=== PATIENT | female | born 1935 | race Caucasian/White ===

== ENCOUNTER 2020-01-06 20:42 | Inpatient (IN) | payer MEDICARE, SELFPAY ==
--- NOTE | ~2020-01-06 | XR_ITS ---
EXAMINATION: XR hip RT 2V w AP pelvis DATE: 01/06/2020 22:03 INDICATION: Right hip pain. Fall. TECHNIQUE: An anteroposterior view of the pelvis and 2 views of right hip were obtained. COMPARISON: None. FINDINGS: There is a subcapital fracture of right femoral neck. The distal fracture fragment demonstr ates impaction, 30 degrees valgus attenuation, and 25 degrees posterior attenuation. There is mild os teoarthritis of the hips. There is severe lumbar spondylosis. IMPRESSION: 1. Subcapital fracture of right femoral neck. 2. Mild osteoarthritis of the hips. Reviewed, dictated and finalized at location A.
--- NOTE | ~2020-01-06 | XR_ITS ---
EXAMINATION: XR surgery orthopedic DATE: 01/07/2020 13:36 INDICATION: Right femoral neck fracture. TECHNIQUE: 2 intraoperative fluoroscopic views of right hip were obtained. I was not present. Fluoros copy exposure time was 47 seconds. COMPARISON: Right hip radiographs 01/06/2020 FINDINGS: There is a subcapital fracture of right femoral neck. The distal fracture fragment demonstr ates posterior and valgus angulation. Internal fixation is seen with 3 lag screws. IMPRESSION: 1. Subcapital fracture of right femoral neck status post internal fixation. Reviewed, dictated and finalized at location A.
[2020-01-06 20:44] VITALS: BP 155/77; PULSE 73; RESP 16; TEMP 36.6; O2SAT 94
--- NOTE | 2020-01-06 22:08 | ED.FALL ---
HPI - Fall General Chief Complaint: Fall Stated Complaint: fall Time Seen by Provider: 01/06/20 20:51 History of Present Illness HPI Narrative: She reports slipping and falling at home this evening. She landed on her right side. She is having moderate pain in the hip. Worse with movement. She denies striking her head. No other pain or injury. Related Data Home Medications Medication Instructions Recorded Confirmed aspirin 81 mg PO DAILY 01/06/20 01/07/20 atorvastatin 20 mg PO HS 01/07/20 01/07/20 Allergies Allergy/AdvReac Type Severity Reaction Status Date / Time No Known Allergies Allergy Verified 01/06/20 22:16 Review of Systems Review of Systems: All systems reviewed & are unremarkable except as noted in HPI and below Constitutional: Constitutional: Denies fever(s) and Denies weakness Respiratory: Respiratory: Denies dyspnea Gastrointestinal: Gastrointestinal: Denies abdominal pain, Denies nausea and Denies vomiting Genitourinary: Genitourinary: Denies dysuria Musculoskeletal: Musculoskeletal: Denies back pain Neurologic: Denies dizziness, Denies syncope and Denies weakness [facility] Past Medical History Medical History H/O: HTN (hypertension) Hyperlipidemia Surgical History Surgical History H/O: hysterectomy Family History Family History Mother Breast cancer Social History Social History Smoking status: Never smoker Second hand tobacco smoke exposure: No Alcohol intake: never Substance use: never Gender identity (if verbalized by the patient): Female Spiritual care concerns: No Exam Const: General: healthy appearing, no acute distress and alert Orientation/consciousness: patient oriented x3 HENMT: Head: normal to inspection Neck: Neck: normal visual inspection and no lymphadenopathy Chest: Chest palpation & inspection: no tenderness Resp: Effort & Inspection: normal respiratory effort Auscultation: clear to auscultation bilaterally, no rales, no rhonchi and no wheezes Cardio: Jugular venous distension: no JVD Rate: regular rate Rhythm: regular rhythm Heart sounds: no murmurs GI: Inspection: non-distended GI Palp: Yes Soft to palpation and No Tenderness to palpation present (GI) Skin: General skin exam: normal color Neuro: General: patient oriented x3 and moves all extremities Speech: normal speech Extrem: Other: Tenderness over the right hip. Pain limited ROM. No obvious deformity. Psych: Appearance: well kempt Affect: normal affect Course Vital Signs Vital signs: Vital Signs Temperature 36.6 C 01/06/20 20:44 Pulse Rate 73 01/06/20 20:44 Respiratory Rate 16 01/06/20 20:44 Blood Pressure 155/77 H 01/06/20 20:44 Pulse Oximetry 94 01/06/20 20:44 Temperature 37.0 C 01/07/20 00:05 Pulse Rate 72 01/07/20 01:19 Respiratory Rate 20 01/07/20 01:19 Blood Pressure 154/67 H 01/07/20 00:05 Pulse Oximetry 96 01/07/20 01:19 MDM - Fall MDM Narrative Medical decision making narrative: HIp fracture on x-ray. Case discussed with Dr. Smith. Will admit her to the hospitalist and keep her NPO. Case discussed with Dr. Rowland. He will admit and put in pre-op orders. Medical Records Attestation: I reviewed the patient's medical records. Lab Data Attestation: I reviewed the patient's lab results. Result diagrams: 01/06/20 22:46 01/06/20 22:46 Imaging Data Radiologist's impression: ITS Impressions Hip/Pelvis X-Ray 01/06/20 22:05 IMPRESSION: 1. Subcapital fracture of right femoral neck. 2. Mild osteoarthritis of the hips. Discharge Plan Discharge Clinical Impression: Subcapital fracture of right femur Patient Disposition: Still a Patient Condition: Stable
[2020-01-06] MEDS: MORPHINE SULFATE 2 MG/ML INJ IV PUSH (22:13)
[2020-01-06 22:43] VITALS: TEMP 36.6
[2020-01-06 22:48] VITALS: BP 160/80; PULSE 71; RESP 14; O2SAT 100
[2020-01-06 22:52] LABS: Basophils Percent Auto 0.2 % (0.2-1.2); Eosinophils Absolute Auto 0.1 K/mm3 (0-0.3); Eosinophils Percent Auto 0.5 % (0-4.4); Hematocrit 39.2 % (37.0-47.0); Hemoglobin 12.8 g/dL (12.0-15.0); Immature Granulocyte Absolute 0.07 K/mm3 (0.00-0.031); Immature Granulocyte Percent A 0.6 % (0-0.5); Lymphocytes Absolute Auto 0.61 K/mm3 (0.9-3.2); Lymphocytes Percent Auto 4.8 % (18.3-44.2); Mean Corpuscular HGB Conc 32.7 g/dl (32-36); Mean Corpuscular Hemoglobin 30.9 pg (26-34); Mean Corpuscular Volume 94.7 fl (80-100); Monocytes Absolute Auto 0.8 K/mm3 (0.1-0.6); Monocytes Percent Auto 6.4 % (2.6-8.5); Neutrophils Absolute Auto 11.1 K/mm3 (1.3-6.7); Neutrophils Percent Auto 87.5 % (45.5-73.1); Platelet Count Result 204 k/mm3 (150-375); Red Blood Count 4.14 M/mm3 (4.2-5.4); Red Cell Distribution Width 12.1 % (11.5-14.5); White Blood Count 12.7 K/mm3 (4.5-10.0)
--- NOTE | 2020-01-06 23:00 | PM.IMHP ---
H&P: HPI History of Present Illness Chief complaint: Femoral neck fracture Narrative: This is an 84 year old female with known HTN who lives alone at home and has had multiple falls presented to the hospital after suffering a fall at home today. The patient apparently was walking from her kitchen to the living room when she suddenly slipped and fell. She denies passing out or suffering any head trauma. The patient immediately had ambulatory dysfunction and could not get up. She pressed her life alert button to get assistance. Hip xray demonstrated subcapital fracture of right femoral neck. On further questions, she denies any headache, blurry vision, fever, chills, shortness of breath, chest pain, nausea, vomiting, abdominal pain, dysuria, hematuria, diarrhea or other symptoms. She denies any other signficant symptoms. ER provider has consulted Ortho who will evaluate the patient in the morning. Review of Systems Review of Systems: All systems reviewed & are unremarkable except as noted in HPI and below PMFSH Past Medical History Medical History Anxiety Depression H/O: HTN (hypertension) Hyperlipidemia Overactive bladder TIA (transient ischemic attack) Surgical History Surgical History H/O: hysterectomy Family History Family History Mother Breast cancer Social History Social History Smoking status: Never smoker Second hand tobacco smoke exposure: No Alcohol intake: never Substance use: never Gender identity (if verbalized by the patient): Female Spiritual care concerns: No Meds Home Medications and Allergies Home Medications Medication Instructions Recorded Confirmed Type famotidine 20 mg tablet 20 mg PO BID #180 tablet 05/10/19 01/07/20 Rx amlodipine 5 mg tablet 5 mg PO DAILY #90 tablet 08/22/19 01/07/20 Rx lisinopril 30 mg tablet 30 mg PO DAILY #90 tablet 08/22/19 01/07/20 Rx sertraline 50 mg tablet 50 mg PO DAILY #90 tablet 08/23/19 01/07/20 Rx aspirin 81 mg PO DAILY 01/06/20 01/07/20 History atorvastatin 20 mg PO HS 01/07/20 01/07/20 History Allergies Allergy/AdvReac Type Severity Reaction Status Date / Time No Known Allergies Allergy Verified 01/06/20 22:16 Vital Signs Vital Signs - 24 hr 01/06/20 20:38 01/06/20 20:44 Temperature 36.6 C Pulse Rate 71 73 Respiratory Rate 14 16 Blood Pressure 160/80 H 155/77 H Pulse Oximetry 100 94 Exam Const: General: alert and awake Nutritional Appearance: well nourished Orientation/consciousness: patient oriented x3 HENMT: Head: normal to inspection General nose exam: Normal external nose present Face and sinus: normal facial exam Mouth: Yes Normal oral and palatal mucosa present and Yes oropharynx normal Eyes: Pupils: Equal, round and reactive pupils present EOM: EOMs intact bilaterally Neck: Neck: supple and no JVD Thyroid: thyroid normal Lymphatic: lymphadenopathy not noted Resp: Effort & Inspection: normal respiratory effort Auscultation: clear to auscultation bilaterally Cardio: Rate: regular rate Rhythm: regular rhythm Heart sounds: no murmurs GI: Inspection: normal to inspection Auscultation: normal bowel sounds Skin: General skin exam: normal color and no rashes or lesions noted Neuro: General: patient oriented x3 Cranial nerves: Yes CN's II-XII intact bilaterally and Yes Equal, round and reactive pupils present Speech: normal speech Motor exam (neuro): 5/5 motor strength present throughout Sensory Exam: normal sensation Extrem: General: normal to inspection and edema bilateral Right lower extremity: hip/thigh (Obvious deformity++ Right LE tender w/ manipulation++ ) Psych: Mental Status: mental status grossly normal Affect: normal affect H&P: Results Labs Labs: Short CBC
[2020-01-06 23:03] LABS: INR 1.1; Prothrombin Time 13.5 Seconds (11.1-14.7)
[2020-01-06 23:04] LABS: Alanine Aminotransferase 24 U/L (4-35); Albumin Level 3.9 g/dL (3.5-5.1); Alkaline Phosphatase 117 U/L (38-126); Aspartate Amino Transferase 40 U/L (14-36); Bilirubin,Total 0.2 mg/dL (0.2-1.3); Blood Urea Nitrogen 19 mg/dL (7-17); Calcium 9.1 mg/dL (8.4-10.2); Carbon Dioxide 27 mmol/L (22-30); Chloride 105 mmol/L (98-107); Estimated CRCL calculation 42 ml/min; Estimated Glomerular Filt Rate > 60; Glucose 160 mg/dL (65-105); Sodium 138 mmol/L (137-145)
[2020-01-06 23:28] LABS: Add Urine Microscopic? YES; Appearance Urine Clear (Clear); Bilirubin Urine Negative (Negative); Blood Urine Negative (Negative); Color Urine Yellow (Yellow); Glucose Urine UA Negative (Negative); Ketones Urine Negative (Negative); Leukocyte Esterase Ur 1+ LEU/UL (Negative); Mucus Urine Rare /lpf; Nitrate Urine Negative (Negative); Protein Urine Negative (Negative); RBC Urine 0-2 /hpf (0-2); Specific Grav Ur 1.012 (1.001-1.035); Urobilinogen Urine Negative mg/dL (<2.0); WBC Urine 0-3 /hpf
[2020-01-06 23:52] VITALS: BP 162/73; PULSE 67; RESP 16; TEMP 36.7; O2SAT 97
[2020-01-07] VITALS (12 sets, daily range): BP systolic 134–167; BP diastolic 47–92; PULSE 72–98; RESP 12–20; TEMP 36.3–37.4; O2SAT 94–100; BMI 24.0
[2020-01-07] MEDS: SODIUM CHLORIDE 0.9% IV 1,000 ML 75 ML IV CONT (00:15)
[2020-01-07] MEDS: MORPHINE SULFATE 4 MG/ML INJ IV PUSH ×4 (00:16→06:42)
--- NOTE | 2020-01-07 00:29 | ADMGEN ---
This patient, Mariam Undrewood, was admitted to 3 [facility] Surg Room 316-01 at 0005. Patient/family oriented to hospital policies and general routines including ID bracelet, bed and alarms, visiting hours, pain management, procedures, bathroom and other care routines, personal items, smoking policy, room service/diet, and visiting hours. Valuables list has been completed. Information on how to activate the Rapid Response Team has been discussed. Patient/Family are encouraged to report perceived risks to care and to ask questions if they do not understand what they are told or what they should do.
[2020-01-07 06:36] LABS: Basophils Percent Auto 0.4 % (0.2-1.2); Eosinophils Percent Auto 0.6 % (0-4.4); Hematocrit 34.4 % (37.0-47.0); Immature Granulocyte Absolute 0.02 K/mm3 (0.00-0.031); Immature Granulocyte Percent A 0.3 % (0-0.5); Lymphocytes Absolute Auto 0.69 K/mm3 (0.9-3.2); Lymphocytes Percent Auto 10.1 % (18.3-44.2); Mean Corpuscular Hemoglobin 30.6 pg (26-34); Mean Corpuscular Volume 95.6 fl (80-100); Mean Platelet Volume 11.5 fl (7.4-10.4); Monocytes Absolute Auto 0.5 K/mm3 (0.1-0.6); Monocytes Percent Auto 6.9 % (2.6-8.5); Neutrophils Absolute Auto 5.6 K/mm3 (1.3-6.7); Neutrophils Percent Auto 81.7 % (45.5-73.1); Nucleated Red Blood Cells Perc 0.3 % (0.0-0.2); Platelet Count Result 179 k/mm3 (150-375); White Blood Count 6.8 K/mm3 (4.5-10.0)
[2020-01-07 07:11] LABS: Blood Urea Nitrogen 19 mg/dL (7-17); Calcium 8.5 mg/dL (8.4-10.2); Carbon Dioxide 26 mmol/L (22-30); Chloride 107 mmol/L (98-107); Estimated CRCL calculation 47 ml/min; Estimated Glomerular Filt Rate > 60; Glucose 127 mg/dL (65-105); Potassium 4.7 mmol/L (3.4-5.0); Sodium 138 mmol/L (137-145)
[2020-01-07] MEDS: amLODIPine BESYLATE 5 MG TABLET PO (08:54)
[2020-01-07] MEDS: FAMOTIDINE 20 MG TABLET PO ×3 (08:54→21:14)
[2020-01-07] MEDS: lisinopriL 10 MG TABLET 30 MG PO (08:54)
[2020-01-07] MEDS: SERTRALINE HCL 50 MG TABLET PO (08:54)
--- NOTE | 2020-01-07 11:00 | PM.IMPN ---
Progress Note: A&P Assessment and Plan (1) Subcapital fracture of right femur: Qualifiers: Encounter type: initial encounter Fracture type: closed Qualified Code(s): S72.011A - Unspecified intracapsular fracture of right femur, initial encounter for closed fracture Code(s): S72.011A - Unspecified intracapsular fracture of right femur, initial encounter for closed fracture Status: Acute Assessment and Plan: Patient presents after a fall at home; imaging shows subcapital right femoral neck fracture. Orthopedic surgery consulted - appreciate recommendations. Discussed case with Dr Smith this morning and his plan for R hip pinning today. She is a bit confused this morning, I am unsure of her baseline but I suspect this may be related to multiple morphine doses overnight. Stop morphine and continue with IV tylenol while NPO this morning. Further pain control, wound care, and DVT prophylaxis per Dr Smith's recommendations. (2) Leukocytosis: Qualifiers: Leukocytosis type: unspecified Qualified Code(s): D72.829 - Elevated white blood cell count, unspecified Code(s): D72.829 - Elevated white blood cell count, unspecified Status: Resolved Assessment and Plan: Resolved. Suspect related to acute fracture. (3) H/O: HTN (hypertension): Code(s): Z86.79 - Personal history of other diseases of the circulatory system Status: Chronic Assessment and Plan: Stable; can resume her home norvasc and lisinopril tomorrow. PRN hydralazine available in the interim. (4) Overactive bladder: Code(s): N32.81 - Overactive bladder Status: Chronic Assessment and Plan: History of overactive bladder symptoms followed by urology and saw Caridad Mckinney NP about 1 month ago. At that time she had a Kim catheter placed in the office but may have only been in for 1 weeks time according to the documentation. She currently has a Kim catheter due to immobility with R hip fracture. Will monitor. (5) Hyperlipidemia: Code(s): E78.5 - Hyperlipidemia, unspecified Status: Chronic Assessment and Plan: Can resume home statin therapy. Subjective Date/time seen: 01/07/20 11:00 Interval history: Ms. Underwood is an 84yo F admitted for right hip fracture. She is a bit confused this morning but is awake to answer some questions. She rates her right hip pain as a 10/10 at present. She denies chest pain, shortness of breath or cough. She describes some mild nausea without vomiting this morning. Review of Systems Review of Systems: Narrative: Twelve systems were reviewed with pertinent positives and negatives as per HPI. Exam Narrative: Exam Narrative: General: Elderly female resting supine in bed in no acute distress. HEENT: Normocephalic, EOMI, oral mucosa dry. Cardiovascular: Rate and rhythm are regular. Respiratory: Lungs clear to auscultation anteriorly and laterally. Non-labored breathing. Tolerating room air. Abdomen: Soft, non-tender, non-distended, bowel sounds present. Extremities: Peripheral pulses intact. R hip ecchymosis. Neuro: Sleepy but wakes to answer questions. Oriented to self but not place or time. No focal neurologic deficits appreciated. 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 Objective Data Vital Signs Vital Signs: Last Vital Signs Temp 98.1 F 01/07/20 06:57 Pulse 98 01/07/20 06:57 Resp 20 01/07/20 06:57 BP 136/75 01/07/20 06:57 Pulse Ox 95 01/07/20 06:57 Intake/Output Intake/Output: Intake & Output 01/04/20 01/05/20 01/06/20 01/07/20 23:59 23:59 23:59 23:59 Intake Total 0 Output Total 200 Balance -200 Meds/Results Medications: Active Medications Generic Name Dose Route Start Last Admin Trade Name Freq PRN Reason Stop Dose Admin Hydrocodone Bitart/Ac
--- NOTE | 2020-01-07 11:35 | PM.CNOR ---
Assessment and Plan Assessment and plan (1) Subcapital fracture of right femur: Qualifiers: Encounter type: initial encounter Fracture type: closed Qualified Code(s): S72.011A - Unspecified intracapsular fracture of right femur, initial encounter for closed fracture Code(s): S72.011A - Unspecified intracapsular fracture of right femur, initial encounter for closed fracture Status: Acute Assessment and Plan: 84-year-old female with subcapital or right femoral neck fracture. I have spoken to her daughter who is her [id number]. Plan on proceeding with surgical stabilization with pinning in situ today.Risks and potential complications were discussed in detail and questions answered. Thank you for the consultation. History of Present Illness HPI Consult date: 01/07/20 Consult reason: fracture Chief complaint: Femoral neck fracture Narrative: 84-year-old female who fell at home yesterday suffering a right subcapital femoral neck fracture. She was admitted for further evaluation and management. [facility] Past Medical History Medical History H/O: HTN (hypertension) Hyperlipidemia Overactive bladder Surgical History Surgical History H/O: hysterectomy Family History Family History Mother Breast cancer Social History Social History Smoking status: Never smoker Second hand tobacco smoke exposure: No Alcohol intake: never Substance use: never Gender identity (if verbalized by the patient): Female Spiritual care concerns: No Meds Home Medications and Allergies Home Medications Medication Instructions Recorded Confirmed Type famotidine 20 mg tablet 20 mg PO BID #180 tablet 05/10/19 01/07/20 Rx amlodipine 5 mg tablet 5 mg PO DAILY #90 tablet 08/22/19 01/07/20 Rx lisinopril 30 mg tablet 30 mg PO DAILY #90 tablet 08/22/19 01/07/20 Rx sertraline 50 mg tablet 50 mg PO DAILY #90 tablet 08/23/19 01/07/20 Rx aspirin 81 mg PO DAILY 01/06/20 01/07/20 History atorvastatin 20 mg PO HS 01/07/20 01/07/20 History Allergies Allergy/AdvReac Type Severity Reaction Status Date / Time No Known Allergies Allergy Verified 01/06/20 22:16 Vital Signs Vital Signs - 24 hr 01/06/20 20:44 01/06/20 22:43 01/06/20 22:48 Temperature 97.8 F 97.8 F Pulse Rate 73 71 Respiratory Rate 16 14 Blood Pressure 155/77 H 160/80 H Pulse Oximetry 94 100 01/06/20 23:52 01/07/20 00:05 01/07/20 01:19 Temperature 98.0 F 98.6 F Pulse Rate 67 72 72 Respiratory Rate 16 20 20 Blood Pressure 162/73 H 154/67 H Pulse Oximetry 97 96 96 01/07/20 06:57 Temperature 98.1 F Pulse Rate 98 Respiratory Rate 20 Blood Pressure 136/75 Pulse Oximetry 95 Exam Const: General: alert and awake; No acute distress Nutritional Appearance: average body habitus Orientation/consciousness: oriented to person (Was given morphine overnight) Limitations: other limitations HENMT: Head: normal to inspection Ears: hearing grossly normal bilaterally Face and sinus: normal facial exam Mouth: Yes moist mucous membranes Teeth and gingiva: fair dentition Eyes: General: appearance normal, both eyes and all related structures Neck: Neck: normal visual inspection and nontender Chest: Chest palpation & inspection: deferred Resp: Effort & Inspection: normal respiratory effort and able to speak in complete sentences Cardio: Rate: regular rate Rhythm: regular rhythm Peripheral pulses: Peripheral pulses 2+ throughout (Both lower extremities) GI: Inspection: non-distended Rectal Exam: deferred Back/Spine/Pelvis: Cervical Spine: No Cervical spine tenderness Thoracic/Lumbar Spine: thoracic and lumbar spine normal to inspection, No paraspinal muscle tenderness, No thoracic spinal tenderness and No lumbar
--- NOTE | 2020-01-07 12:06 | WPDANESEPPF ---
Anes - Initial Pre Proc Eval Procedure: Operation Date: 01/07/20 13:00 Proposed Procedures p Hip Pinning Cannulated Screws - Tacho Smith MD Date/Time: 01/07/20 12:06 Surgeon: LISSETTE Garibay Pre Op Diagnosis: Femoral neck fracture Patient Data Age: 84 Gender: F Height: 1.65 m Weight: 65.4 kg Last Vital Signs Temp 36.7 C 01/07/20 06:57 Pulse 98 01/07/20 06:57 Resp 20 01/07/20 06:57 BP 136/75 01/07/20 06:57 Pulse Ox 95 01/07/20 06:57 Allergies Allergy/AdvReac Type Severity Reaction Status Date / Time No Known Allergies Allergy Verified 01/06/20 22:16 Home Medications Medication Instructions Recorded Confirmed Type famotidine 20 mg tablet 20 mg PO BID #180 tablet 05/10/19 01/07/20 Rx amlodipine 5 mg tablet 5 mg PO DAILY #90 tablet 08/22/19 01/07/20 Rx lisinopril 30 mg tablet 30 mg PO DAILY #90 tablet 08/22/19 01/07/20 Rx sertraline 50 mg tablet 50 mg PO DAILY #90 tablet 08/23/19 01/07/20 Rx aspirin 81 mg PO DAILY 01/06/20 01/07/20 History atorvastatin 20 mg PO HS 01/07/20 01/07/20 History Laboratory Tests 01/06/20 01/06/20 01/06/20 22:46 22:46 22:46 WBC 12.7 K/mm3 H K/mm3 (4.5-10.0) RBC 4.14 M/mm3 L M/mm3 (4.2-5.4) Hgb 12.8 g/dL g/dL (12.0-15.0) Hct 39.2 % % (37.0-47.0) MCV 94.7 fl fl (80-100) MCH 30.9 pg pg (26-34) MCHC 32.7 g/dl g/dl (32-36) RDW 12.1 % % (11.5-14.5) Plt Count 204 k/mm3 k/mm3 (150-375) MPV 11.0 fl H fl (7.4-10.4) Immature Gran % (Auto) 0.6 % H % (0-0.5) Neut % (Auto) 87.5 % H % (45.5-73.1) Lymph % (Auto) 4.8 % L % (18.3-44.2) [place] % (Auto) 6.4 % % (2.6-8.5) Eos % (Auto) 0.5 % % (0-4.4) Baso % (Auto) 0.2 % % (0.2-1.2) Lymph # (Auto) 0.61 K/mm3 L K/mm3 (0.9-3.2) [place] # (Auto) 0.8 K/mm3 H K/mm3 (0.1-0.6) Eos # (Auto) 0.1 K/mm3 K/mm3 (0-0.3) Baso # (Auto) 0.0 K/mm3 K/mm3 (0.0-0.1) Abs Immat Gran (auto) 0.07 K/mm3 H K/mm3 (0.00-0.031) Absolute Neuts (auto) 11.1 K/mm3 H K/mm3 (1.3-6.7) Absolute Nucleated RBC 0.0 K/mm3 K/mm3 (0.0-0.012) Nucleated RBC % 0.0 % % (0.0-0.2) PT 13.5 Seconds Seconds (11.1-14.7) INR 1.1 Sodium 138 mmol/L mmol/L (137-145) Potassium 4.0 mmol/L mmol/L (3.4-5.0) Chloride 105 mmol/L mmol/L (98-107) Carbon Dioxide 27 mmol/L mmol/L (22-30) BUN 19 mg/dL H mg/dL (7-17) Creatinine 0.80 mg/dL mg/dL (0.7-1.0) Estim Creat Clear Calc 42 ml/min ml/min Estimated GFR > 60 (59 - ) Glucose 160 mg/dL H mg/dL (65-105) Calcium 9.1 mg/dL mg/dL (8.4-10.2) Total Bilirubin 0.2 mg/dL mg/dL (0.2-1.3) AST 40 U/L H U/L (14-36) ALT 24 U/L U/L (4-35) Alkaline Phosphatase 117 U/L U/L (38-126) Total Protein 7.0 g/dL g/dL (6.3-8.2) Albumin 3.9 g/dL g/dL (3.5-5.1) Urine Color Urine Appearance Urine pH Ur Specific [place] Urine Protein Urine Glucose (UA) Urine Ketones Ur Blood (Man) Urine Nitrate Urine Bilirubin Urine Urobilinogen Leukocyte Esterase Rfl Urine RBC Urine WBC Hyaline Casts Urine Mucus 01/06/20 01/07/20 01/07/20 23:06 05:55 05:55 WBC 6.8 K/mm3 K/mm3 (4.5-10.0) RBC 3.60 M/mm3 L M/mm3 (4.2-5.4) Hgb 11.0 g/dL L g/dL (12.0-15.0) Hct 34.4 % L % (37.0-47.0) MCV 95.6 fl fl (80-100) MCH 30.6 pg pg (26-34) MCHC 32.0 g/dl g/dl (32-36) RDW 12.0 % % (11.5-14.5) Plt Count 1
[2020-01-07] MEDS: ceFAZolin 2 GM/D5W 50 ML 2 GM/50 ML BAG IVPB ×2 (12:38→20:59)
--- NOTE | 2020-01-07 12:50 | PC.NURSE ---
To OR per bed on 12/21/2019 at 1200, IV saline locked. Kim in place. Family escorted to waiting room. Report given to AMINA Tatum.
[2020-01-07] MEDS: BUPIVACAINE/EPINEPHRINE 0.25% 50 ML VIAL INFILTRATE (13:10)
[2020-01-07] MEDS: LACTATED RINGERS 1,000 ML 30 ML IV CONT (13:54)
--- NOTE | 2020-01-07 14:15 | P.OP_ITS ---
Procedure Note - Detailed Date of procedure: 01/07/20 Pre-op diagnosis: Femoral neck fracture Impacted right subcapital femoral neck fracture Post-op diagnosis: same Procedure performed: Pinning in situ right femoral neck fracture Description of procedure: The patient was identified and proper site identified. She was taken to the operating room and after general anesthetic induction and intubation was transferred to the Newberg table position her supine in the usual manner for fixation of a right hip fracture. The fracture was assessed fluoroscopically and noted to be unchanged. The right hip and thigh was prepped and draped in usual sterile fashion. 10 mL of 0.25% Marcaine and epinephrine solution was injected into the subcutaneous tissue in the area of the incision. Longitudinal incision was made over the lateral aspect of the proximal femur. Subcutaneous tissue was bluntly dissected down to the ITB band which was divided in line with the incision. Through this three guide pins were placed under f luoroscopic control into the femoral neck and head over which 36.5 cannulated screws were placed and then the guidepins were removed. Hardware placement was assessed fluoroscopically on the AP and lateral views and noted to be satisfactory. The wound was irrigated with a copious amount of sterile antibiotic solution. The ITB band was reapproximated with 0 Vicryl suture. Once this was completed there was a very large subcutaneous hematoma from disruption in the fatty tissue. This was cleared of the clot debris and brought out proximal to the incision. The deeper layers of the subcu reapproximated with 2. Vicryl take taking care not to entrap the drain. The skin edges were reapproximated with three 0 Monocryl and jarad. Sterile dressing was applied. Drain was connected to the collection device. She tolerated the procedure well and was transferred back to a bed, awakened, extubated and taken recovery area in stable condition. There were no known intraoperative complications. She received perioperative antibiotics. Anesthesia: GLMA Surgeon: Tacho Smith MD Groundskeeping Maintenance Worker: Yogi Colunga Estimated blood loss (mL): 100 Drains: Yes (1/8 inch Hemovac) Packing: No Pathology: none sent Complications: No immediate complications Condition: stable Disposition: PACU
[2020-01-07] MEDS: SODIUM CHLORIDE 0.9% IV 1,000 ML 100 ML IV CONT (16:05)
--- NOTE | 2020-01-07 17:08 | PC.NURSE ---
Returned from OR per bed on 01/07/2020 at 1520. Report received from AMINA Franks.
[2020-01-07] MEDS: ACETAMINOPHEN 500 MG TABLET 1000 MG PO ×2 (18:16→23:38)
[2020-01-07] MEDS: DOCUSATE SODIUM 100 MG CAPSULE PO (18:16)
[2020-01-07] MEDS: ATORVASTATIN 20 MG TABLET PO (21:14)
[2020-01-08] VITALS (7 sets, daily range): BP systolic 123–153; BP diastolic 48–90; PULSE 66–82; RESP 16–18; TEMP 36.6–37.1; O2SAT 88–100
[2020-01-08] MEDS: SODIUM CHLORIDE 0.9% IV 1,000 ML 100 ML IV CONT ×2 (01:33→13:04)
[2020-01-08] MEDS: ceFAZolin 2 GM/D5W 50 ML 2 GM/50 ML BAG IVPB ×2 (04:31→13:24)
[2020-01-08] MEDS: ACETAMINOPHEN 500 MG TABLET 1000 MG PO ×3 (05:27→17:09)
[2020-01-08 06:36] LABS: Basophils Percent Auto 0.4 % (0.2-1.2); Eosinophils Absolute Auto 0.3 K/mm3 (0-0.3); Eosinophils Percent Auto 3.7 % (0-4.4); Hematocrit 30.2 % (37.0-47.0); Hemoglobin 9.8 g/dL (12.0-15.0); Immature Granulocyte Absolute 0.02 K/mm3 (0.00-0.031); Immature Granulocyte Percent A 0.3 % (0-0.5); Immature Platelet Fraction Pct 7.2 % (0.9-11.2); Lymphocytes Absolute Auto 0.45 K/mm3 (0.9-3.2); Lymphocytes Percent Auto 6.6 % (18.3-44.2); Mean Corpuscular HGB Conc 32.5 g/dl (32-36); Mean Corpuscular Hemoglobin 30.9 pg (26-34); Mean Corpuscular Volume 95.3 fl (80-100); Mean Platelet Volume 11.4 fl (7.4-10.4); Monocytes Absolute Auto 0.5 K/mm3 (0.1-0.6); Monocytes Percent Auto 7.9 % (2.6-8.5); Neutrophils Absolute Auto 5.5 K/mm3 (1.3-6.7); Neutrophils Percent Auto 81.1 % (45.5-73.1); Platelet Count Result 131 k/mm3 (150-375); Red Blood Count 3.17 M/mm3 (4.2-5.4); Red Cell Distribution Width 12.3 % (11.5-14.5); White Blood Count 6.8 K/mm3 (4.5-10.0)
[2020-01-08 06:45] LABS: Blood Urea Nitrogen 11 mg/dL (7-17); Carbon Dioxide 25 mmol/L (22-30); Chloride 107 mmol/L (98-107); Estimated CRCL calculation 54 ml/min; Estimated Glomerular Filt Rate > 60; Glucose 115 mg/dL (65-105); Magnesium 1.9 mg/dL (1.6-2.3); Potassium 3.4 mmol/L (3.4-5.0); Sodium 136 mmol/L (137-145)
[2020-01-08] MEDS: amLODIPine BESYLATE 5 MG TABLET PO (09:35)
[2020-01-08] MEDS: SERTRALINE HCL 50 MG TABLET PO (09:35)
[2020-01-08] MEDS: DOCUSATE SODIUM 100 MG CAPSULE PO ×2 (09:35→17:09)
[2020-01-08] MEDS: FAMOTIDINE 20 MG TABLET PO ×2 (09:35→20:17)
[2020-01-08] MEDS: lisinopriL 10 MG TABLET 30 MG PO (09:36)
--- NOTE | 2020-01-08 09:46 | PM.PNORT ---
Progress Note: A&P Assessment and Plan (1) Subcapital fracture of right femur: Qualifiers: Encounter type: initial encounter Fracture type: closed Qualified Code(s): S72.011A - Unspecified intracapsular fracture of right femur, initial encounter for closed fracture Code(s): S72.011A - Unspecified intracapsular fracture of right femur, initial encounter for closed fracture Status: Acute Assessment and Plan: 84-year-old female postop day one right hip pinning. No issues overnight. Therapy started. Will switch back to aspirin when she leaves the hospital. Currently on Lovenox. Following. Time Spent With Patient Time with patient: 15 - 25 minutes Subjective Subjective Date/Time Seen: 01/08/20 09:46 Post Op day: 1 Principal diagnosis: Status post right hip pinning Interval history: 84-year-old female postop day one right hip pinning. Uneventful overnight. Articulates very little discomfort in her right hip this morning. Review of Systems Constitutional: Constitutional: Denies chills and Denies fever(s) Eyes: Eyes: Reports no additional eye complaints ENT: Reports system reviewed and no additional complaints, except as documented Cardiovascular: Cardiovascular: Denies chest pain and Denies dyspnea on exertion Respiratory: Respiratory: Reports no additional respiratory complaints and Denies dyspnea on exertion Gastrointestinal: Gastrointestinal: Denies abdominal pain and Denies bloating Exam Const: General: cooperative, no acute distress and alert Nutritional Appearance: other Orientation/consciousness: patient oriented x3 Limitations: no limitations HENMT: Head: normal to inspection Ears: hearing grossly normal bilaterally Face and sinus: face symmetric Mouth: Yes moist mucous membranes Teeth and gingiva: fair dentition Eyes: Alignment and Position: alignment normal and position normal Sclera: sclerae normal Neck: Neck: normal visual inspection and nontender Chest: Chest palpation & inspection: normal inspection of the chest Resp: Effort & Inspection: normal respiratory effort and able to speak in complete sentences GI: Inspection: other (Nondistended) Skin: General skin exam: normal color Rashes: no rashes Neuro: General: patient oriented x3 Cognition (Neuro): normal cognition Speech: normal speech Gait exam (Neuro): Other gait observations present Motor exam (neuro): 5/5 motor strength present throughout Sensory Exam: normal sensation Extrem: General: normal to inspection and other Other: Exam of her right hip shows a dry dressing with very little swelling and no erythema around the incision. Neurovascular status grossly intact to right lower extremity. Calves nontender. Psych: Appearance: grossly normal Mental Status: mental status grossly normal Objective Data Vital Signs Vital Signs: Vital Signs - 24 hr 01/07/20 13:54 01/07/20 14:05 01/07/20 14:20 Temperature 99.4 F Pulse Rate 85 78 83 Respiratory Rate 13 12 12 Blood Pressure 167/92 H 166/67 H 147/74 H Pulse Oximetry 98 100 100 01/07/20 14:35 01/07/20 14:50 01/07/20 15:05 Temperature Pulse Rate 80 80 78 Respiratory Rate 12 12 12 Blood Pressure 150/85 H 154/66 H 136/71 Pulse Oximetry 94 94 96 01/07/20 15:25 01/07/20 15:45 01/07/20 22:00 Temperature 97.3 F L 97.9 F Pulse Rate 75 78 82 Respiratory Rate 16 20 Blood Pressure 134/47 L 154/64 H Pulse Oximetry 96 95 96 01/08/20 00:46 01/08/20 06:00 Temperature 98.7 F Pulse Rate 74 Respiratory Rate 18 Blood Pressure 130/90 Pulse Oximetry 95 97 Intake/Output Intake/Output: Intake & Output 01/05/20 01/06/20 01/07/20 01/08/20 23:59 23:59 23:59 23:59 Intake Total 350 / 350 1300 / 1300 Output Total 335 / 335 720 / 720 Balance 580 / 580 Meds/Results Medications: Active Medications Generic Name Dose Route Start Last Admin Trade Name Freq PRN Reason Stop Dose Admin Acetaminophen 1,000 mg 01/07/20
--- NOTE | 2020-01-08 09:59 | WPDANESPN ---
Anes - Prog Note Post-Op Date/Time: 01/08/20 09:59 Cardiovascular status: normal Respiratory status: normal Airway patency: baseline Mental status: baseline Post-Op hydration status: normal Vital Signs: Last Vital Signs Temp 37.1 C 01/08/20 06:00 Pulse 74 01/08/20 06:00 Resp 18 01/08/20 06:00 BP 130/90 01/08/20 06:00 Pulse Ox 97 01/08/20 06:00 I/O: Intake & Output 01/07/20 01/08/20 01/08/20 23:59 07:59 15:59 Intake Total 50 1300 Output Total 75 720 Balance -25 580 Laboratory Tests 01/08/20 05:55 01/08/20 05:55 01/08/20 01/08/20 05:55 05:55 WBC 6.8 RBC 3.17 L Hgb 9.8 L Hct 30.2 L MCV 95.3 MCH 30.9 MCHC 32.5 RDW 12.3 Plt Count 131 L MPV 11.4 H Immature Gran % (Auto) 0.3 Neut % (Auto) 81.1 H Lymph % (Auto) 6.6 L [place] % (Auto) 7.9 Eos % (Auto) 3.7 Baso % (Auto) 0.4 Lymph # (Auto) 0.45 L [place] # (Auto) 0.5 Eos # (Auto) 0.3 Baso # (Auto) 0.0 Abs Immat Gran (auto) 0.02 Absolute Neuts (auto) 5.5 Absolute Nucleated RBC 0.0 Nucleated RBC % 0.0 % Immature Plt Fraction 7.2 Sodium 136 L Potassium 3.4 Chloride 107 Carbon Dioxide 25 BUN 11 D Creatinine 0.60 L Estim Creat Clear Calc 54 Estimated GFR > 60 Glucose 115 H Calcium 8.0 L Magnesium 1.9 Post-procedural complaints: none Patient Feedback: Patient satisfied with anesthetic care.
--- NOTE | 2020-01-08 11:26 | PM.IMPN ---
Progress Note: A&P Assessment and Plan (1) Subcapital fracture of right femur: Qualifiers: Encounter type: initial encounter Fracture type: closed Qualified Code(s): S72.011A - Unspecified intracapsular fracture of right femur, initial encounter for closed fracture Code(s): S72.011A - Unspecified intracapsular fracture of right femur, initial encounter for closed fracture Status: Acute Assessment and Plan: Patient presents after a fall at home; imaging showed subcapital right femoral neck fracture now POD#1 s/p ORIF pinning by Dr Smith 01/06. Orthopedic surgery following - appreciate input. Pain control, wound care, and DVT prophylaxis per Dr Smith's recommendations. (2) H/O: HTN (hypertension): Code(s): Z86.79 - Personal history of other diseases of the circulatory system Status: Chronic Assessment and Plan: Stable on her home lisinopril and norvasc today, last pressure on the softer side may hold Lisinopril in AM. (3) Overactive bladder: Code(s): N32.81 - Overactive bladder Status: Chronic Assessment and Plan: History of overactive bladder symptoms followed by urology and saw Caridad Mckinney NP about 1 month ago. At that time she had a Kim catheter placed in the office but may have only been in for 1 weeks time according to the documentation. She currently has a Kim catheter due to immobility with R hip fracture. Will monitor. (4) Hyperlipidemia: Qualifiers: Hyperlipidemia type: unspecified Qualified Code(s): E78.5 - Hyperlipidemia, unspecified Code(s): E78.5 - Hyperlipidemia, unspecified Status: Chronic Assessment and Plan: Maintained on home statin therapy. Subjective Date/time seen: 01/08/20 1015 Interval history: Ms. Underwood is an 84yo F admitted for right hip fracture seen in follow up POD#1 s/p right hip pinning. She is sitting up in bedside chair finishing up breakfast. Doing well, describes hip discomfort with movement but pretty comfortable at rest. She denies chest pain or feeling short of breath. She denies nausea, vomiting, or abdominal pain. Review of Systems Review of Systems: Narrative: Twelve systems were reviewed with pertinent positives and negatives as per HPI. Exam Narrative: Exam Narrative: General: Elderly female resting comfortably in bedside chair in no acute distress. HEENT: Normocephalic, EOMI, oral mucosa dry. Cardiovascular: Rate and rhythm are regular. Respiratory: Lungs clear to auscultation. Non-labored breathing. Tolerating room air. Abdomen: Soft, non-tender, non-distended, bowel sounds present. Extremities: Peripheral pulses intact, RLE neurovascularly intact distal to surgical site. Neuro: No focal neurologic deficits appreciated. Speech is clear. Objective Data Vital Signs Vital Signs: Last Vital Signs Temp 97.9 F 01/08/20 10:00 Pulse 66 01/08/20 10:00 Resp 16 01/08/20 10:00 BP 123/48 L 01/08/20 10:00 Pulse Ox 100 01/08/20 10:00 Intake/Output Intake/Output: Intake & Output 01/05/20 01/06/20 01/07/20 01/08/20 23:59 23:59 23:59 23:59 Intake Total 350 1540 Output Total 335 720 Balance 15 820 Meds/Results Medications: Active Medications Generic Name Dose Route Start Last Admin Trade Name Argenis PRN Reason Stop Dose Admin Acetaminophen 1,000 mg 01/07/20 18:00 01/08/20 05:27 Tylenol Tablet PO 1,000 mg Q6HR OWEN Administration Al Hydrox/Mg Hydrox/Simethicone 30 ml 01/07/20 15:14 Mylanta PO Q6H PRN Indigestion Amlodipine Besylate 5 mg 01/07/20 09:00 01/08/20 09:35 Norvasc PO 5 mg DAILY OWEN Administration Atorvastatin Calcium 20 mg 01/07/20 21:00 01/07/20 21:14 Lipitor PO 20 mg HS OWEN Administration Docusate Sodium 100 mg 01/07/20 17:00 01/08/20 09:35 Colace Capsul
[2020-01-08] MEDS: ENOXAPARIN 40 MG/0.4 ML SYRINGE SUB-Q (13:23)
[2020-01-08] MEDS: ATORVASTATIN 20 MG TABLET PO (20:17)
[2020-01-09] MEDS: ACETAMINOPHEN 500 MG TABLET 1000 MG PO ×4 (00:04→17:35)
[2020-01-09] MEDS: SODIUM CHLORIDE 0.9% IV 1,000 ML 100 ML IV CONT ×3 (00:04→22:56)
[2020-01-09 06:00] VITALS: BP 182/57; PULSE 81; RESP 18; TEMP 37.1; O2SAT 93
[2020-01-09 06:24] LABS: Hematocrit 28.1 % (37.0-47.0); Hemoglobin 9.1 g/dL (12.0-15.0)
[2020-01-09 06:33] LABS: Blood Urea Nitrogen 9 mg/dL (7-17); Carbon Dioxide 24 mmol/L (22-30); Chloride 110 mmol/L (98-107); Estimated CRCL calculation 64 ml/min; Estimated Glomerular Filt Rate > 60; Glucose 97 mg/dL (65-105); Magnesium 1.9 mg/dL (1.6-2.3); Potassium 3.1 mmol/L (3.4-5.0); Sodium 138 mmol/L (137-145)
[2020-01-09] MEDS: POTASSIUM CHLORIDE 20 MEQ TABLET 40 MEQ PO (09:14)
[2020-01-09] MEDS: FAMOTIDINE 20 MG TABLET PO ×2 (09:15→20:25)
[2020-01-09] MEDS: ENOXAPARIN 40 MG/0.4 ML SYRINGE SUB-Q (09:15)
[2020-01-09] MEDS: amLODIPine BESYLATE 5 MG TABLET PO (09:15)
[2020-01-09] MEDS: SERTRALINE HCL 50 MG TABLET PO (09:15)
[2020-01-09] MEDS: DOCUSATE SODIUM 100 MG CAPSULE PO (09:15)
--- NOTE | 2020-01-09 10:49 | PM.PNORT ---
Progress Note: A&P Assessment and Plan (1) Subcapital fracture of right femur: Qualifiers: Encounter type: initial encounter Fracture type: closed Qualified Code(s): S72.011A - Unspecified intracapsular fracture of right femur, initial encounter for closed fracture Code(s): S72.011A - Unspecified intracapsular fracture of right femur, initial encounter for closed fracture Status: Acute Assessment and Plan: 84-year-old female postop day two right hip pinning doing well. She is much more alert now. Continue her physical therapy and OT. Awaiting placement. Following. Subjective Subjective Date/Time Seen: 01/09/20 10:49 Post Op day: 2 Principal diagnosis: Status post right hip pinning Interval history: 84-year-old female postop day two for right hip pinning. Feeling better each day. Review of Systems Constitutional: Constitutional: Denies chills and Denies fever(s) Eyes: Eyes: Reports no additional eye complaints ENT: Reports system reviewed and no additional complaints, except as documented Cardiovascular: Cardiovascular: Denies chest pain and Denies dyspnea on exertion Respiratory: Respiratory: Reports no additional respiratory complaints and Denies dyspnea on exertion Gastrointestinal: Gastrointestinal: Denies abdominal pain and Denies bloating Exam Const: General: cooperative, no acute distress and alert Nutritional Appearance: other Orientation/consciousness: patient oriented x3 Limitations: no limitations HENMT: Head: normal to inspection Ears: hearing grossly normal bilaterally Face and sinus: face symmetric Mouth: Yes moist mucous membranes Teeth and gingiva: fair dentition Eyes: Alignment and Position: alignment normal and position normal Sclera: sclerae normal Neck: Neck: normal visual inspection and nontender Chest: Chest palpation & inspection: normal inspection of the chest Resp: Effort & Inspection: normal respiratory effort and able to speak in complete sentences GI: Inspection: other ( Nontender and nondistended) Skin: General skin exam: normal color Rashes: no rashes Neuro: General: patient oriented x3 Cognition (Neuro): normal cognition Speech: normal speech Gait exam (Neuro): Other gait observations present Motor exam (neuro): 5/5 motor strength present throughout Sensory Exam: normal sensation Extrem: General: normal to inspection and other Other: Exam of there a hip demonstrates dry dressing. No erythema in very little swelling. Bruising is resolving. Neurovascular status right lower extremity is intact. Calves nontender. Psych: Appearance: grossly normal Mental Status: mental status grossly normal Objective Data Vital Signs Vital Signs: Vital Signs - 24 hr 01/08/20 14:00 01/08/20 21:03 01/08/20 22:00 Temperature 98.6 F 98.7 F Pulse Rate 82 69 77 Respiratory Rate 18 18 Blood Pressure 153/63 H 135/61 Pulse Oximetry 97 91 95 01/08/20 23:18 01/09/20 06:00 Temperature 98.7 F Pulse Rate 81 Respiratory Rate 18 Blood Pressure 182/57 H Pulse Oximetry 92 93 Intake/Output Intake/Output: Intake & Output 01/06/20 01/07/20 01/08/20 01/09/20 23:59 23:59 23:59 23:59 Intake Total 350 / 350 4280 / 4280 420 / 420 Output Total 335 / 335 1220 / 1220 300 / 300 Balance 3060 / 3060 120 / 120 Meds/Results Medications: Active Medications Generic Name Dose Route Start Last Admin Trade Name Freq PRN Reason Stop Dose Admin Acetaminophen 1,000 mg 01/07/20 18:00 01/09/20 05:22 Tylenol Tablet PO 1,000 mg Q6HR OWEN Administration Al Hydrox/Mg Hydrox/Simethicone 30 ml 01/07/20 15:14 Mylanta PO Q6H PRN Indigestion Amlodipine Besylate 5 mg 01/07/20 09:00 01/09/20 09:15 Norvasc PO 5 mg DAILY OWEN Administration Atorvastatin Calcium 20 mg 01/07/20 21:00 01/08/20 20:17 Lipitor PO 20 mg HS OWEN Administration Docusate Sodium 100 mg 01/07/20 17:00 01/09/20 09:15
--- NOTE | 2020-01-09 10:49 | PM.IMPN ---
Progress Note: A&P Assessment and Plan (1) Subcapital fracture of right femur: Qualifiers: Encounter type: initial encounter Fracture type: closed Qualified Code(s): S72.011A - Unspecified intracapsular fracture of right femur, initial encounter for closed fracture Code(s): S72.011A - Unspecified intracapsular fracture of right femur, initial encounter for closed fracture Status: Acute Assessment and Plan: Patient presents after a fall at home; imaging showed subcapital right femoral neck fracture now POD#2 s/p ORIF pinning by Dr Smith 01/06. Orthopedic surgery following - appreciate input. Pain control, wound care, and DVT prophylaxis per Dr Smith's recommendations. (2) H/O: HTN (hypertension): Code(s): Z86.79 - Personal history of other diseases of the circulatory system Status: Chronic Assessment and Plan: A bit elevated today, continue home Norvasc and resume home lisinopril. Monitor BPs and adjust treatment as needed. (3) Overactive bladder: Code(s): N32.81 - Overactive bladder Status: Chronic Assessment and Plan: History of overactive bladder symptoms followed by urology and saw Caridad Mckinney NP about 1 month ago. At that time she had a Kim catheter placed in the office but may have only been in for 1 weeks time according to the documentation. She has had no difficulty voiding thus far after Kim removal yesterday. Will monitor. (4) Hyperlipidemia: Qualifiers: Hyperlipidemia type: unspecified Qualified Code(s): E78.5 - Hyperlipidemia, unspecified Code(s): E78.5 - Hyperlipidemia, unspecified Status: Chronic Assessment and Plan: Maintained on home statin therapy. Subjective Date/time seen: 01/09/20 0945 Interval history: Ms. Underwood is an 84yo F admitted for right hip fracture seen in follow up POD#2 s/p right hip pinning. She is sitting up in bedside chair eating breakfast. She is doing well and describes her pain is a bit improved from yesterday. She denies chest pain or feeling short of breath. She denies nausea, vomiting, or abdominal pain. Review of Systems Review of Systems: Narrative: Twelve systems were reviewed with pertinent positives and negatives as per HPI. Except as documented, all other systems were reviewed and are negative. Exam Narrative: Exam Narrative: General: Elderly female resting comfortably in bedside chair in no acute distress. HEENT: Normocephalic, EOMI, oral mucosa dry. Cardiovascular: Rate and rhythm are regular. Respiratory: Lungs clear to auscultation. Non-labored breathing. Tolerating room air. Abdomen: Soft, non-tender, non-distended, bowel sounds present. Extremities: Peripheral pulses intact, RLE neurovascularly intact distal to surgical site; R hip mepilex is clean/dry/intact Neuro: No focal neurologic deficits appreciated. Speech is clear. Objective Data Vital Signs Vital Signs: Vital Signs - 24 hr 01/08/20 14:00 01/08/20 21:03 01/08/20 22:00 Temperature 98.6 F 98.7 F Pulse Rate 82 69 77 Respiratory Rate 18 18 Blood Pressure 153/63 H 135/61 Pulse Oximetry 97 91 95 01/08/20 23:18 01/09/20 06:00 Temperature 98.7 F Pulse Rate 81 Respiratory Rate 18 Blood Pressure 182/57 H Pulse Oximetry 92 93 Intake/Output Intake/Output: Intake & Output 01/06/20 01/07/20 01/08/20 01/09/20 23:59 23:59 23:59 23:59 Intake Total 350 4280 420 Output Total 335 1220 300 Balance 15 3060 120 Meds/Results Medications: Active Medications Generic Name Dose Route Start Last Admin Trade Name Freq PRN Reason Stop Dose Admin Acetaminophen 1,000 mg 01/07/20 18:00 01/09/20 05:22 Tylenol Tablet PO 1,000 mg Q6HR OWEN Administration Al Hydrox/Mg Hydrox/Simethicone 30 ml 01/07/20 15:14 Mylanta PO Q6H PRN Indigestion Amlod
[2020-01-09 14:00] VITALS: BP 150/56; PULSE 73; RESP 18; TEMP 36.9; O2SAT 93
[2020-01-09 14:26] LABS: SARS-CoV-2 RNA PCR Negative
[2020-01-09] MEDS: ATORVASTATIN 20 MG TABLET PO (20:25)
[2020-01-09 20:38] VITALS: O2SAT 92
[2020-01-09 21:55] VITALS: BP 153/77; PULSE 73; RESP 18; TEMP 36.9; O2SAT 97
[2020-01-10] MEDS: ACETAMINOPHEN 500 MG TABLET 1000 MG PO ×3 (00:18→13:03)
[2020-01-10 05:54] LABS: Hematocrit 25.7 % (37.0-47.0); Hemoglobin 8.3 g/dL (12.0-15.0)
[2020-01-10 06:00] VITALS: BP 154/80; PULSE 88; RESP 16; TEMP 36.7; O2SAT 95
[2020-01-10 06:12] LABS: Blood Urea Nitrogen 8 mg/dL (7-17); Calcium 7.7 mg/dL (8.4-10.2); Carbon Dioxide 23 mmol/L (22-30); Chloride 111 mmol/L (98-107); Estimated CRCL calculation 64 ml/min; Estimated Glomerular Filt Rate > 60; Glucose 93 mg/dL (65-105); Magnesium 1.8 mg/dL (1.6-2.3); Potassium 3.1 mmol/L (3.4-5.0); Sodium 137 mmol/L (137-145)
[2020-01-10] MEDS: lisinopriL 10 MG TABLET 30 MG PO (09:22)
[2020-01-10] MEDS: amLODIPine BESYLATE 5 MG TABLET PO (09:22)
[2020-01-10] MEDS: SERTRALINE HCL 50 MG TABLET PO (09:23)
[2020-01-10] MEDS: DOCUSATE SODIUM 100 MG CAPSULE PO (09:23)
[2020-01-10] MEDS: FAMOTIDINE 20 MG TABLET PO (09:23)
[2020-01-10] MEDS: POTASSIUM CHLORIDE 20 MEQ TABLET 40 MEQ PO (09:23)
[2020-01-10] MEDS: ENOXAPARIN 40 MG/0.4 ML SYRINGE SUB-Q (09:23)
--- NOTE | 2020-01-10 11:33 | PM.PNORT ---
Progress Note: A&P Assessment and Plan (1) Subcapital fracture of right femur: Qualifiers: Encounter type: initial encounter Fracture type: closed Qualified Code(s): S72.011A - Unspecified intracapsular fracture of right femur, initial encounter for closed fracture Code(s): S72.011A - Unspecified intracapsular fracture of right femur, initial encounter for closed fracture Status: Acute Assessment and Plan: No change in physical therapy activity orders. Agree with placement. Hip spica dressing until jarad are removed in about two weeks. Discharge instructions changed to reflect that. Following. Time Spent With Patient Time with patient: 15 - 25 minutes Subjective Subjective Date/Time Seen: 01/10/20 11:33 Post Op day: 3 Principal diagnosis: Status post right hip pinning Interval history: 84-year-old female postop day three right hip pending. No new complaints. Review of Systems Constitutional: Constitutional: Denies chills and Denies fever(s) Eyes: Eyes: Reports no additional eye complaints ENT: Reports system reviewed and no additional complaints, except as documented Cardiovascular: Cardiovascular: Denies chest pain and Denies dyspnea on exertion Respiratory: Respiratory: Reports no additional respiratory complaints and Denies dyspnea on exertion Gastrointestinal: Gastrointestinal: Denies abdominal pain and Denies bloating Exam Const: General: cooperative, no acute distress and alert Nutritional Appearance: other Orientation/consciousness: patient oriented x3 Limitations: no limitations HENMT: Head: normal to inspection Ears: hearing grossly normal bilaterally Face and sinus: face symmetric Mouth: Yes moist mucous membranes Teeth and gingiva: fair dentition Eyes: Alignment and Position: alignment normal and position normal Sclera: sclerae normal Neck: Neck: normal visual inspection and nontender Chest: Chest palpation & inspection: normal inspection of the chest Resp: Effort & Inspection: normal respiratory effort and able to speak in complete sentences GI: Inspection: other Skin: General skin exam: normal color Rashes: no rashes Neuro: General: patient oriented x3 Cognition (Neuro): normal cognition Speech: normal speech Gait exam (Neuro): Other gait observations present Motor exam (neuro): Other motor observations present ( No lower extremity deficits) Sensory Exam: normal sensation Extrem: General: normal to inspection and other Other: Exam of the right hip reveals modest bruising and moderate swelling today. Serous drainage coming from with the drain hole is in a little bit through the staple line. Psych: Appearance: grossly normal Mental Status: mental status grossly normal Objective Data Vital Signs Vital Signs: Vital Signs - 24 hr 01/09/20 14:00 01/09/20 20:38 01/09/20 21:55 Temperature 98.5 F 98.4 F Pulse Rate 73 73 Respiratory Rate 18 18 Blood Pressure 150/56 H 153/77 H Pulse Oximetry 93 92 97 01/10/20 06:00 Temperature 98.0 F Pulse Rate 88 Respiratory Rate 16 Blood Pressure 154/80 H Pulse Oximetry 95 Intake/Output Intake/Output: Intake & Output 01/07/20 01/08/20 01/09/20 01/10/20 23:59 23:59 23:59 23:59 Intake Total 350 / 350 4280 / 4280 3080 / 3080 220 / 220 Output Total 335 / 335 1220 / 1220 650 / 650 200 / 200 Balance 3060 / 3060 2430 / 2430 Meds/Results Medications: Active Medications Generic Name Dose Route Start Last Admin Trade Name Charlieq PRN Reason Stop Dose Admin Acetaminophen 1,000 mg 01/07/20 18:00 01/10/20 07:37 Tylenol Tablet PO 1,000 mg Q6HR OWEN Administration Al Hydrox/Mg Hydrox/Simethicone 30 ml 01/07/20 15:14 Mylanta PO Q6H PRN Indigestion Amlodipine Besylate 5 mg 01/07/20 09:00 01/10/20 09:22 Norvasc PO 5 mg DAILY OWEN Administration Atorvastatin Calcium 20 mg 01/07/20 21:00 01/09/20 20:25 Lipitor PO 20 mg HS [facility] Ad
[2020-01-10 13:57] LABS: Hematocrit 29.8 % (37.0-47.0); Hemoglobin 9.8 g/dL (12.0-15.0)
[2020-01-10 14:00] VITALS: BP 125/81; PULSE 80; RESP 16; TEMP 36.6; O2SAT 94
[2020-01-10 14:11] LABS: Magnesium 1.9 mg/dL (1.6-2.3); Potassium 3.4 mmol/L (3.4-5.0)
[2020-01-10 14:19] LABS: Transferrin 146 mg/dL (206-381)
[2020-01-10 14:25] LABS: Iron 29 ug/dL (37-170)
[2020-01-10 14:50] LABS: Percent Iron Saturation 14 % (20-50)
--- NOTE | 2020-01-10 15:15 | PM.DS ---
DS: Admitting Diagnosis Admitting Diagnosis Admitting Diagnosis: Unspecified intracapsular fracture of right femur, initial encounter for closed fracture DS: Discharge Diagnosis Discharge Diagnosis (1) Subcapital fracture of right femur: Qualifiers: Encounter type: initial encounter Fracture type: closed Qualified Code(s): S72.011A - Unspecified intracapsular fracture of right femur, initial encounter for closed fracture Code(s): S72.011A - Unspecified intracapsular fracture of right femur, initial encounter for closed fracture Status: Acute Assessment and Plan: Patient presents after a fall at home; imaging showed subcapital right femoral neck fracture now POD#3 s/p ORIF pinning by Dr Smith 01/06. Dr. Smith evaluated the patient today and feels she is stable for discharge to SNF at this time for continued therapy. He wrote orders for her to continue with Hip spica dressing until jarad are removed in about two weeks. The patient is otherwise stable to be discharged to SNF. (2) H/O: HTN (hypertension): Code(s): Z86.79 - Personal history of other diseases of the circulatory system Status: Chronic Assessment and Plan: A bit elevated today, 154/80. Continue home Norvasc and lisinopril. Have them continue monitoring at [facility]. (3) Overactive bladder: Code(s): N32.81 - Overactive bladder Status: Chronic Assessment and Plan: History of overactive bladder symptoms followed by urology and saw Caridad Mckinney NP about 1 month ago. At that time she had a Kim catheter placed in the office but may have only been in for 1 weeks time according to the documentation. She has had no difficulty voiding thus far after Kim removal yesterday. Patient still not having issues with urinating and denies any urinary symptoms at this time. Will have them monitor for any retention issues. (4) Hyperlipidemia: Qualifiers: Hyperlipidemia type: unspecified Qualified Code(s): E78.5 - Hyperlipidemia, unspecified Code(s): E78.5 - Hyperlipidemia, unspecified Status: Chronic Assessment and Plan: Maintained on home statin therapy. (5) Normocytic anemia: Code(s): D64.9 - Anemia, unspecified Status: Acute Assessment and Plan: On arrival the patient's H&H was normal. throughout her hospitalization and postop her H&H has dropped slightly. this morning it was the lowest at a hemoglobin of 8.3 and hematocrit at 25.7. Repeat H&H this afternoon which improved with a hemoglobin of 9.8 and hematocrit of 29.8%. iron panel appears to be anemia of chronic disease, but her % saturation was low at 14. will start her on iron supplementation twice a day and have her recheck CBC in 1 week. Vitamin B12 and folic acid were normal. she has no acute signs of bleeding at this time. Per orthopedic surgery the patient will continue on a full-dose aspirin twice a day for 6 weeks and then switch back to an 81 mg aspirin for DVT prophylaxis. (6) Hypokalemia: Code(s): E87.6 - Hypokalemia Status: Acute Assessment and Plan: Potassium was low at 3.1 this morning. it was replenished and repeat this afternoon was 3.4 which is within normal limits. Magnesium was normal at 1.9. DS: Summary Hospital Course Reason for hospitalization: patient is an 84-year-old woman with a history hypertension, who lives alone and has had multiple falls recently and she had a fall prior to arrival and sustained right hip pain and decided to come to emergency room for further evaluation. initial vitals showed temperature of 97.8?, blood pressure 155/77, heart rate 73, respiratory rate 16, oxygen saturation 94% on room air. Initial labs showed
[2020-01-10 15:18] LABS: Folic Acid > 20.0 ng/mL (2.76->20)
== END 2020-01-10 16:25 | DRG 482 ==
LOC: ANHED 22:38 → ANH3MEDSUR 01-07 00:50
PROVIDERS: Orthopaedic Surgery; Physician Assistant; Admitting Provider Family Medicine; Emergency Provider Emergency Medicine; PCP Family Medicine; Visit Provider Physician Assistant
PROC: 0QH634Z Insertion of Internal Fixation Device into Right Upper Femur, Percutaneous Approach (ICD-10-PCS; principal; 2020-01-07 13:00)
DX: S72.011A Unspecified intracapsular fracture of right femur, initial encounter for closed fracture (principal); W01.0XXA Fall on same level from slipping, tripping and stumbling without subsequent striking against object, initial encounter; D63.8 Anemia in other chronic diseases classified elsewhere; I10 Essential (primary) hypertension; N32.81 Overactive bladder; E78.5 Hyperlipidemia, unspecified; E87.6 Hypokalemia; F41.9 Anxiety disorder, unspecified; F32.9 Major depressive disorder, single episode, unspecified; D72.829 Elevated white blood cell count, unspecified; Z11.59 Encounter for screening for other viral diseases; Z79.82 Long term (current) use of aspirin; Z86.73 Personal history of transient ischemic attack (TIA), and cerebral infarction without residual deficits
CPT/HCPCS: 36415; 73502; 80048; 80053; 81001; 82607; 82728; 82746; 83540; 83550; 83735; 84132; 84466; 85014; 85018; 85025; 85055; 85610; 87635; 96374; 97110; 97162; 97165; 97530; 97535; 99285; A9270; C1713; C1769; C9803; J0690; J1650; J2270; J2704; J3010; J7030; J7120; U0003

== ENCOUNTER → 2021-01-21 14:49 | Outpatient (CLI) | payer MEDICARE, SELFPAY ==
--- NOTE | ~2021-01-21 | XR_ITS ---
XR lumbar spine 2-3V DATE: 01/21/2021 15:31 INDICATION: Low back pain TECHNIQUE: Standing AP and lateral views, coned lateral lumbosacral view COMPARISON: None FINDINGS: Diffuse osteopenia. There is severe degenerative disc disease at L2-3, L3-4, L4-5 and L5-S1. No fracture or bone destruction is evident. The included lower thoracic and lumbar pedicles are intac t. The sacroiliac joints appear normal. Several pins are noted in the proximal right femur. IMPRESSION: Diffuse osteopenia Severe degenerative disc disease at L2-3 through L5-S1 3 pins in the proximal right femur Reviewed, dictated and finalized at location B.
== END ==
PROVIDERS: PCP Family Medicine; Visit Provider Family Medicine
DX: G89.29 Other chronic pain (principal); M54.5 Low back pain; M85.88 Other specified disorders of bone density and structure, other site; M51.36 Other intervertebral disc degeneration, lumbar region
CPT/HCPCS: 72100

== ENCOUNTER 2021-04-08 15:58 | Outpatient (CLI) | payer MEDICARE, SELFPAY ==
--- NOTE | ~2021-04-08 | XR_ITS ---
EXAMINATION: XR abdomen/kub 1V DATE: 04/08/2021 16:30 INDICATION: Gross hematuria. Mid abdominal pain. Flank pain. TECHNIQUE: A supine view of the abdomen on 2 radiographs was obtained. COMPARISON: CT abdomen and pelvis 04/08/2021 FINDINGS: There are no dilated loops of bowel. There is no urolithiasis. There are pins in proximal r ight femur. IMPRESSION: 1. No urolithiasis. Reviewed, dictated and finalized at location A. IMPRESSION: 1. No urolithiasis.
--- NOTE | ~2021-04-08 | CT_ITS ---
EXAMINATION: CT abdomen pelvis wo/w con DATE: 04/08/2021 17:05 INDICATION: Gross hematuria TECHNIQUE: Computed tomography (CT) of the abdomen and pelvis was performed without intravenous contr ast. The dose-length product was 1034.50 mGy-cm. Automated exposure control and iterative reconstruct ion technique were employed. COMPARISON: None. FINDINGS: There is bibasilar atelectasis. No significant pleural or pericardial effusion. There is a right cardiophrenic angle mass measuring 3.5 cm with a few associated calcifications. There is hetero geneous enhancement of this mass. There is gallbladder distention with mild biliary dilatation. There is a redundant colon with moderate colonic fecal loading. Small amount of free fluid in the abdomen and pelvis. No renal/ureteral stones. No significant hydronephrosis. The spleen, pancreas, adrenal gl ands and kidneys are under otherwise unremarkable. There are surgical changes of the right femur prox imally. There is advanced lumbar spondylosis. No focal lytic or blastic lesions of the skeletal struc tures. IMPRESSION: 1. Abnormal right cardiophrenic angle mass with heterogeneous enhancement measuring up to 3.5 cm. Can not exclude malignancy. Consider metastatic disease and lymphoma. 2: Gallbladder distention with mild biliary dilatation, nonspecific. No obstructing stone or mass id entified. Reviewed, dictated and finalized at location B. IMPRESSION: 1. Abnormal right cardiophrenic angle mass with heterogeneous enhancement measu ring up to 3.5 cm. Cannot exclude malignancy. Consider metastatic disease and l ymphoma. 2: Gallbladder distention with mild biliary dilatation, nonspecific. No obstru cting stone or mass identified.
[2021-04-08 16:50] LABS: Estimated Glomerular Filt Rate 60
== END 2021-04-08 15:59 | disposition home or self-care (01) ==
LOC: ANHIMG 16:04
PROVIDERS: PCP Family Medicine; Visit Provider Nurse Practitioner Adult Health
DX: R31.9 Hematuria, unspecified (principal); R93.5 Abnormal findings on diagnostic imaging of other abdominal regions, including retroperitoneum
CPT/HCPCS: 74018; 74178; Q9967

== ENCOUNTER 2021-04-25 08:06 | Outpatient (CLI) | payer MEDICARE, SELFPAY ==
--- NOTE | ~2021-04-25 | PE_ITS ---
EXAMINATION: PET skull to mid thigh DATE: 04/25/2021 10:57 INDICATION: Abnormal findings of lung field. TECHNIQUE: Blood glucose level was 89 mg/dL. 8.868 mCi of 18-fluorodeoxyglucose (18-FDG) was administ ered i.v. Low dose computed tomography (CT) images were acquired from the base of the brain to the pr oximal thighs for attenuation correction and anatomic localization. Positron emission tomography (PET ) images were acquired in the same distribution beginning 71 minutes after injection. Images includin g fused PET/CT images were reconstructed in axial, coronal, and sagittal planes. Automated exposure c ontrol technique was employed. The dose-length product was 542.43mGy-cm. COMPARISON: None FINDINGS: Head/neck: There is symmetric increased activity in the oral cavity, palatine tonsils, parotid glands, laryngeal muscles and ocular muscles without CT correlate, likely physiologic. No pathologically enlarged cerv ical lymphadenopathy or suspicious foci of increased FDG uptake in the visualized head or neck. Chest: Respiratory motion and some groundglass opacities scattered throughout the lungs likely subsegmental atelectasis related to expiratory phase of imaging as evidenced by the concave posterior wall of the trachea. No suspicious pulmonary nodules, pneumonia or pleural effusion. Cardiomegaly. Mitral annular calcification. No pericardial effusion. A few calcified mediastinal lymph nodes consistent with old granulomatous disease. Again seen is a 3.5 x 2.8 x 3.8 cm mass with some peripheral calcification rebeca tered in the pericardial fat along the anterior margin of the ascending aorta and right atrial append age. The mass demonstrates FDG uptake with maximal SUV of 2.3 which is slightly below the level of th e level of activity in the blood pool. No other abnormal masses or abnormally FDG avid lesions in the thorax. Abdomen/pelvis/proximal thighs: Physiologic renal accumulation and excretion of FDG activity in the kidneys, bladder and along portio ns of ureters. Normal degree and heterogenous pattern of increased uptake throughout the liver withou t radiologic correlate or dominant FDG avid lesion. The gallbladder, pancreas, spleen and bilateral a drenal glands are normal. Mild uptake scattered throughout the bowels without radiologic correlate, a lso likely physiologic. No other abnormal foci of increased FDG uptake or pathologically enlarged lym phadenopathy in the abdomen, pelvis or proximal thighs. Small fat-containing left inguinal hernia. Musculoskeletal: Chronic right subcapital fracture fixed with 3 lag screws. Moderate cervical and thoracic and severe lumbar spondylosis. There is some extravasated activity at the site of injection at the right hand. N o suspicious lytic, blastic or FDG avid bone lesions. IMPRESSION: 1. FDG activity slightly below the level of the blood pool such with a 3.8 x 3.5 x 2.8 cm mass in the right paracardial fat pad. Differential would include neoplasm either benign or malignant with the p resence of calcification suggesting possibility of lymphadenopathy in the setting of granulomatous in fection, treated malignancy or lymphoma in the appropriate clinical setting, teratoma and intrathorac ic goiter. The appearance on prior CT also raises the possibility of a partially thrombosed aneurysm. Prior to any planned biopsy would recommend further imaging evaluation to exclude the possibility of aneurysm. The lesion lies posterior to the sternum however there may still be a window for ultrasoun d visualization along the left side of the sternum. Alternatively could consider multiphase pre and p ostcontrast MRI however this may also be complicated by cardiac motion. Imaging at an institution wit h the capability of cardiac gated MRI would be the best option. 2. No other lesions suspicious for malignancy/metastatic disease in the neck, chest, abdomen or pelvi s.
[2021-04-25 08:29] LABS: Glucose Point of Care 89 mg/dl (65-105)
== END 2021-04-25 08:07 | disposition home or self-care (01) ==
LOC: ANHIMG 08:07
PROVIDERS: PCP Family Medicine; Visit Provider Family Medicine
DX: R91.8 Other nonspecific abnormal finding of lung field (principal)
CPT/HCPCS: 78815; A9552

== ENCOUNTER 2021-04-30 06:48 | Outpatient (CLI) | payer MEDICARE, SELFPAY ==
--- NOTE | ~2021-04-30 | MR_ITS ---
EXAMINATION: MR lumbar spine wo con DATE: 04/30/2021 07:47 INDICATION: Lumbar radiculopathy. TECHNIQUE: Magnetic resonance imaging (MRI) of the lumbar spine was performed without intravenous con trast. Sequences included sagittal T2-weighted FSE, sagittal T2-weighted FS FSE, sagittal T1-weighted FSE, and axial T2-weighted FSE. COMPARISON: Lumbar spine radiographs 01/21/2021 FINDINGS: There is 4 mm retrolisthesis of L2 on L3 and L3 on L4 and 3 mm anterolisthesis of L5 on S1. There are Schmorl's nodes at multiple levels. There is severely decreased disc height from L2-L3 thr ough L5-S1 with endplate remodeling. There is ligamentum flavum hypertrophy at the disc levels from L 1-L2 through L4-L5. The distal spinal cord signal intensity is normal. The conus medullaris is at L1. The following disc levels are specifically discussed: L1-L2: There is a small central extrusion. There is moderate right facet joint osteoarthritis. There is no neural foraminal stenosis. There is no central canal stenosis. L2-L3: The disc is bulging and has an annular fissure. There is mild bilateral facet joint osteoarthr itis. There is moderate bilateral neural foraminal stenosis. There is mild central canal stenosis. L3-L4: The disc is bulging and has an annular fissure. There is moderate right and mild left facet cale int osteoarthritis. There is mild bilateral neural foraminal stenosis. There is mild central canal st enosis. L4-L5: The disc is bulging and has an annular fissure. There is severe bilateral facet joint osteoart hritis. There is mild bilateral neural foraminal stenosis. There is mild central canal stenosis. L5-S1: The disc is bulging and has an annular fissure. There is severe bilateral facet joint osteoart hritis. There is mild bilateral neural foraminal stenosis. There is mild central canal stenosis. IMPRESSION: 1. Severe lumbar spondylosis. Reviewed, dictated and finalized at location A. 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
== END 2021-04-30 06:49 | disposition home or self-care (01) ==
LOC: ANHIMG 06:53
PROVIDERS: PCP Family Medicine; Visit Provider Nurse Practitioner Family
DX: M47.27 Other spondylosis with radiculopathy, lumbosacral region (principal); M48.07 Spinal stenosis, lumbosacral region
CPT/HCPCS: 72148

== ENCOUNTER 2021-08-28 07:11 | Outpatient (CLI) | payer MEDICARE, SELFPAY ==
--- NOTE | ~2021-08-28 | CT_ITS ---
EXAMINATION: CT diagnostic chest w con DATE: 08/28/2021 08:00 INDICATION: Pericardial mass TECHNIQUE: Transaxial computed tomographic images of the chest were obtained after the administration of 75 cc of Omnipaque 350 intravenous contrast. The dose-length product (DLP) was 149.90 mGy-cm. Ite rative reconstruction was used. COMPARISON: PET/CT, 04/25/2021; CT, 04/08/2021 FINDINGS: There is a stable 3.7 x 2.6 cm partially calcified mass of the right pericardial fat pad wh ich also demonstrates soft tissue and fluid attenuation. Although this exam was not performed without contrast, the soft tissue component of the mass appeared to enhance on the prior CT. There is no ple ural effusion or pneumothorax. Mild atelectasis is noted. The heart size is normal. There is moderate thoracic spondylosis. IMPRESSION: 1. Stable partially calcified mass of the right pericardial fat pad. Differential is as previously de scribed including benign or malignant neoplasm or possibly partially thrombosed aneurysm. Reviewed, dictated and finalized at location B. OR CLINICIAN IMPRESSION: 1. Stable partially calcified mass of the right pericardial fat pad. Differenti al is as previously described including benign or malignant neoplasm or possibl y partially thrombosed aneurysm.
[2021-08-28 07:50] LABS: Estimated Glomerular Filt Rate 60
== END 2021-08-28 07:12 | disposition home or self-care (01) ==
LOC: ANHIMG 07:16
PROVIDERS: PCP Family Medicine; Visit Provider Internal Medicine Hematology & Oncology
DX: I31.9 Disease of pericardium, unspecified (principal); M47.814 Spondylosis without myelopathy or radiculopathy, thoracic region
CPT/HCPCS: 71260; Q9967

== ENCOUNTER 2022-02-20 08:46 | Outpatient (CLI) | payer MEDICARE, SELFPAY ==
--- NOTE | ~2022-02-20 | CT_ITS ---
EXAMINATION:CT diagnostic chest w con DATE: 02/20/2022 09:15 INDICATION: Pericardial mass. TECHNIQUE: Computed tomography (CT) of the chest was performed with 75 mL Omnipaque 350 intravenous c ontrast. Automated exposure control and iterative reconstruction technique were employed. The dose-le ngth product (DLP) was 226.65 mGy-cm. COMPARISON: Chest CT 08/28/21, PET/CT 04/25/21, CT abdomen and pelvis 04/08/21 FINDINGS: The lungs demonstrate mild atelectasis. No pleural effusion. There are nodules in the thyro id measuring up to 11 mm, likely not clinically significant. Cardiomegaly is noted. No pericardial ef fusion. There is a 3.8 x 2.7 cm mass in the anterior mediastinum measuring soft tissue attenuation wi th small calcifications. There is severe cervical spondylosis and mild thoracic spondylosis. IMPRESSION: 1. 3.8 cm mass with calcifications in the anterior mediastinum, stable from 04/08/21. The differentia l diagnosis includes thymic neoplasm such as thymoma, germ cell neoplasm, and ascending aortic pseudo aneurysm. Reviewed, dictated and finalized at location A. IMPRESSION: 1. 3.8 cm mass with calcifications in the anterior mediastinum, stable from . The differential diagnosis includes thymic neoplasm such as thymoma, gio m cell neoplasm, and ascending aortic pseudoaneurysm.
[2022-02-20 09:12] LABS: Estimated Glomerular Filt Rate 59
== END 2022-02-20 08:47 | disposition home or self-care (01) ==
PROVIDERS: PCP Family Medicine; Visit Provider Internal Medicine Hematology & Oncology
DX: I31.8 Other specified diseases of pericardium (principal)
CPT/HCPCS: 71260; Q9967

== ENCOUNTER 2022-07-29 12:54 | Outpatient (CLI) | payer MEDICARE, SELFPAY ==
--- NOTE | ~2022-07-29 | DEXA_ITS ---
Bone Density Report Name: DOREEN GUILLEN Age: 87 Sex: Female Ethnicity: White Date of : 1935 Indication: postmenopausal; screening for osteoporosis; height loss; prior fracture; hysterectomy; Referring Provider: JONNY LOMBARDO Study: Bone densitometry was performed. Exam Date: July 29, 2022 Accession number: [id number] Bone Density: Region BMD T-score Z-score Classification AP Spine(L1-L4) 1.026 -0.2 2.7 Normal Femoral Neck (Left) 0.545 -2.7 -0.2 Osteoporosis Total Hip (Left) 0.596 -2.8 -0.5 Osteoporosis World Health Organization criteria for BMD impression classify patients as: Normal (T-score at or above -1.0), Osteopenia (T-score between -1.0 and -2.5), or Osteoporosis (T-score at or below -2.5). 10-year Fracture Risk: FRAX not reported because: Some T-score for Spine Total or Hip Total or Femoral Neck at or below -2.5 Prior hip or vertebral fracture Treated for osteoporosis Clinical Information Provided by Patient: Have had a previous hip or vertebral fracture Has had a low trauma fracture Is being treated for osteoporosis Has used the following medications: Vitamin D, Calcium Has the following medical conditions: Hysterectomy Patient maximum height was 65.5 Menopause Age: 46 Drinks caffeinated beverages Onset of menses at age 12 Number of children 5 Impression: The patient has established osteoporosis, based on the Left Total Hip T-score and the existence of a prior fracture. The patient has risk factors, including: previous fracture. Discussion: It is important to ask patients whether they are taking their medications and to encourage continued and appropriate compliance with their osteoporosis therapies to reduce fracture risk. It is also important to review their risk factors and encourage appropriate calcium and vitamin D intakes, exercise, fall prevention and other lifestyle measures. Follow-Up: Consider a repeat BMD and Vertebral Fracture Assessment (VFA) exam in 2 years or sooner if medically necessary, to reassess this patient's status. Reported by: DONG on 07/29/2022 1:17:00 PM. Reviewed, dictated and finalized at location AAnnel BOYER
== END 2022-07-29 12:55 | disposition home or self-care (01) ==
PROVIDERS: PCP Family Medicine; Visit Provider Family Medicine
DX: Z78.0 Asymptomatic menopausal state (principal); M81.0 Age-related osteoporosis without current pathological fracture
CPT/HCPCS: 77080

== ENCOUNTER 2022-09-01 09:44 | Outpatient (CLI) | payer MEDICARE, SELFPAY ==
--- NOTE | ~2022-09-01 | CT_ITS ---
Clinical Indication: Pericardial mass CT Scan of the Chest with Contrast: Technique: Contiguous sections were acquired throughout the chest after intravenous administration of 75 cc of Omnipaque 350. Dose reduction technique was used on this scan by utilizing automated exposu re control and iterative reconstruction technique. The dose-length product (DLP) was 133.71 mGy-cm. COMPARISON: CT dated 02/20/2022, prior PET scan dated 04/25/2021 Findings: There is an anterior mediastinal mass measuring 3.8 x 2.7 x 4.3 cm in size, with several focal editorial intern al calcifications. This lesion is stable from prior exams. There is no filling defect in the pulmonar y arterial tree to suggest pulmonary embolus. There is no evidence of aortic dissection or aneurysm. There are atherosclerotic calcifications of the aorta. There is no evidence of pleural or pericardial effusion. The lungs are clear. No pulmonary nodules or infiltrates are noted. Images through the upper abdomen reveal no abnormalities. Impression: 3.8 x 2.7 x 4.3 cm anterior mediastinal mass, unchanged since at least 04/25/2021. Lesion is indetermi neelima, possibly of thymic or germ cell origin, but stability over this time interval suggests benignit y. Reviewed, dictated and finalized at location . Impression: 3.8 x 2.7 x 4.3 cm anterior mediastinal mass, unchanged since at least . Lesion is indeterminate, possibly of thymic or germ cell origin, but stabili ty over this time interval suggests benignity.
[2022-09-01 10:07] LABS: Estimated Glomerular Filt Rate 59
== END 2022-09-01 09:45 | disposition home or self-care (01) ==
PROVIDERS: PCP Family Medicine; Visit Provider Internal Medicine Hematology & Oncology
DX: I31.8 Other specified diseases of pericardium (principal)
CPT/HCPCS: 71260; Q9967

== ENCOUNTER 2022-11-18 10:13 | Outpatient (CLI) | payer MEDICARE, SELFPAY ==
[2022-11-18 14:27] LABS: Alanine Aminotransferase 22 U/L (6-35); Albumin Level 4.2 g/dL (3.5-5.1); Alkaline Phosphatase 77 U/L (38-126); Anion Gap 3 mmol/L (8-16); Aspartate Amino Transferase 34 U/L (14-36); Bilirubin,Total 0.5 mg/dL (0.2-1.3); Blood Urea Nitrogen 25 mg/dL (7-17); Calcium 9.3 mg/dL (8.4-10.2); Carbon Dioxide 33 mmol/L (22-30); Chloride 105 mmol/L (98-107); Estimated Glomerular Filt Rate 59; Glucose 99 mg/dL (65-110); Potassium 4.8 mmol/L (3.4-5.0); Sodium 141 mmol/L (137-145)
== END 2022-11-18 10:14 | disposition home or self-care (01) ==
LOC: ANHGOSHLAB 10:14
PROVIDERS: PCP Family Medicine; Visit Provider Family Medicine
DX: E87.6 Hypokalemia (principal); R41.89 Other symptoms and signs involving cognitive functions and awareness; I10 Essential (primary) hypertension
CPT/HCPCS: 36415; 80053

== ENCOUNTER 2022-11-30 05:53 | Emergency (ER) | payer MEDICARE, SELFPAY ==
[2022-11-30] VITALS (11 sets, daily range): BP systolic 176–219; BP diastolic 67–88; PULSE 65–79; RESP 14–18; TEMP 36.6; O2SAT 95–98
--- NOTE | ~2022-11-30 | XR_ITS ---
EXAMINATION: XR chest 2V 11/30/2022 08:04 INDICATION: Foreign body evaluation. Choking. PROCEDURE: AP view of the chest COMPARISON: 11/20/2018 FINDINGS: The lungs are clear. The cardiomediastinal silhouette is within normal limits. There are no pleural effusions. There is no pneumothorax suspected. IMPRESSION: 1: NO ACUTE CARDIOPULMONARY DISEASE. Reviewed, dictated and finalized at location A.
--- NOTE | ~2022-11-30 | XR_ITS ---
XR abdomen/kub 1V 11/30/2022 08:05 Indication: Evaluate for foreign body. Choking. Procedure: KUB Comparison: 04/08/2021 Findings: Bowel gas pattern nonobstructive. No abnormal calcifications. Severe lumbar spondylosis. Th ere are 3 lag screws transfixing the right femoral neck. Impression: 1: No acute abdominal abnormality. No evidence for foreign body. Reviewed, dictated and finalized at location A. Impression: 1: No acute abdominal abnormality. No evidence for foreign body.
--- NOTE | 2022-11-30 07:07 | ED.GENADULT ---
HPI - General Adult General Chief complaint: Unspecified Stated complaint: something stuck in throat Time Seen by Provider: 11/30/22 07:01 History of Present Illness HPI narrative: Patient is a 7-year-old female who presents ER with discomfort in her neck. She reports feels like a sore throat or that something is there. She is able to eat and drink without issue. No nausea or vomiting. Son reports patient has had increased heartburn since starting her donepezil. Apparently patient was drinking her water and there is a missing bottle And they are unsure if she may have swallowed it. Patient has no abdominal pain. No additional concerns. She does not chest pain or chest pressure. No exertional discomfort. No sweats. Related Data Home Medications Medication Instructions Recorded Confirmed aspirin 81 mg tablet,delayed 81 mg PO DAILY 05/10/20 11/18/22 release (Adult Aspirin Regimen) docusate sodium 100 mg capsule 100 mg PO DAILY 01/21/21 11/18/22 (Colace) ahuvpndt-uvg-eckrg acid 0.4 1 tablet PO DAILY 01/21/21 11/18/22 mg-lycopene 300 mcg-lutein 250 mcg tablet (Centrum Silver) mirabegron 50 mg tablet,extended 50 mg PO DAILY 07/22/21 11/18/22 release 24 hr Allergies Allergy/AdvReac Type Severity Reaction Status Date / Time No Known Allergies Allergy Verified 11/18/22 08:52 Review of Systems Review of Systems: All systems reviewed & are unremarkable except as noted in HPI and below ENT: Denies dysphagia and Denies mouth pain Cardiovascular: Cardiovascular: Denies chest pain and Denies palpitations Gastrointestinal: Gastrointestinal: Denies abdominal pain, Denies dysphagia, Reports heartburn, Denies nausea and Denies vomiting [facility] Past Medical History Medical History Anxiety Chronic lower back pain Constipation Degenerative disc disease, lumbar Depression Depression Dyslipidemia Environmental allergies Essential (primary) hypertension GERD without esophagitis H/O: HTN (hypertension) Osteoporosis Overactive bladder Subcapital fracture of right hip (~12/2019) TIA (transient ischemic attack) Surgical History Surgical History H/O: hysterectomy (~1980) History of hip surgery (~12/2019) status post ORIF(01/08) Family History Family History Mother Breast cancer Social History Social History Smoking status: Never smoker Second hand tobacco smoke exposure: No Alcohol intake: never Substance use: never Substance use type: does not use Lack of Transportation: No Lack of Food: Never True Current Housing: I Have Housing Concerned About Future Housing: No Difficulty Paying Gas/Electric Bills: No Difficulty Paying for Meds: No Currently Unemployed: No Education: High School Diploma/GED Difficulty w/ Childcare or Family Care: No Living arrangements: alone Occupation/Education: retired Gender identity (if verbalized by the patient): Female Spiritual care concerns: No Agree to blood products: Yes Exam Narrative: GENERAL: Well-appearing, well-nourished, and in no acute distress. HEAD: Normocephalic, atraumatic. ENT: Mucous membranes moist. CHEST: Clear to auscultation. No respiratory distress. HEART: Regular rate and rhythm. Normal peripheral pulses. ABDOMEN: Soft, nontender, nondistended. EXTREMITIES: Normal range of motion. No edema. SKIN: Warm, dry, no rash. NEURO: Alert and oriented x3. PSYCH: Normal mood and affect. Course Course Emergency Course: Symptoms improved with GI cocktail. Blood pressure decreasing with home med administration. Is felt patient had his acid reflux. She has been taking famotidine and she will be switched to Prilosec. Vital Signs Vital signs: Vital Signs Temperature 97.8 F
--- NOTE | 2022-11-30 07:32 | ECG_ITS ---
Measurements Intervals [place] Rate: 71 P: 48 WA: 198 QRS: -47 QRSD: 172 T: 116 QT: 412 QTc: 448 Interpretive Statements SINUS RHYTHM LEFT BUNDLE BRANCH BLOCK [120+ ms QRS DURATION, 80+ ms Q/S IN V1/V2, 85+ ms R IN I/aVL/V5/V6] COMPARED TO ECG 11/20/2018 12:16:44 NO SIGNIFICANT CHANGES Electronically Signed On 11-30-2022 8:44:19 CDT by Claudette Proctor M.D.
[2022-11-30] MEDS: lisinopriL 10 MG TABLET 30 MG PO (07:50)
[2022-11-30] MEDS: amLODIPine BESYLATE 5 MG TABLET PO (07:50)
[2022-11-30] MEDS: BELLADONNA ALK/PHENOB ELIX 10 ML, MAG HYDROX/ALUMINUM HYD/SIMETH 30 ML, LIDOCAINE HCL 2... PO (07:51)
== END 2022-11-30 09:25 | disposition home or self-care (01) ==
PROVIDERS: Emergency Provider Emergency Medicine; PCP Family Medicine
DX: K21.9 Gastro-esophageal reflux disease without esophagitis (principal); E78.5 Hyperlipidemia, unspecified; I10 Essential (primary) hypertension; N32.81 Overactive bladder; M81.0 Age-related osteoporosis without current pathological fracture; M51.36 Other intervertebral disc degeneration, lumbar region; Z86.73 Personal history of transient ischemic attack (TIA), and cerebral infarction without residual deficits; Z90.710 Acquired absence of both cervix and uterus; Z79.82 Long term (current) use of aspirin; I44.7 Left bundle-branch block, unspecified
CPT/HCPCS: 71046; 74018; 93005; 99283; A9270

== ENCOUNTER 2023-02-02 10:38 | Outpatient (CLI) | payer MEDICARE, SELFPAY ==
--- NOTE | ~2023-02-02 | XR_ITS ---
EXAMINATION:XR_CERV2-3V_CR DATE: 02/02/2023 11:09 INDICATION: Neck pain TECHNIQUE: AP, lateral, and odontoid views of the cervical spine are provided. COMPARISON: None FINDINGS: Alignment is normal. The odontoid process is intact. No fracture is identified. The vertebr al body heights are maintained. There is moderate loss of intervertebral disc space height throughout the cervical spine. There is multilevel severe facet and uncovertebral joint osteoarthritis. Prevert ebral soft tissues are normal. IMPRESSION: 1. Moderate to severe cervical spondylosis without acute findings. Reviewed, dictated and finalized at location B.
--- NOTE | ~2023-02-02 | XR_ITS ---
EXAMINATION: XR thoracic spine 3V DATE: 02/02/2023 11:09 INDICATION: Thoracic spine pain TECHNIQUE: AP, lateral and lateral swimmer's views of the thoracic spine were obtained. COMPARISON: CT, 09/01/2022 FINDINGS: Bone alignment is normal. There is no fracture. The vertebral body heights are maintained. There is mild loss of intervertebral disc space height at multiple levels in the thoracic spine. Bonita re cervical spondylosis is noted. IMPRESSION: 1. Moderate thoracic spondylosis without acute findings. Reviewed, dictated and finalized at location B.
--- NOTE | ~2023-02-02 | US_ITS ---
EXAMINATION: US soft tissue head and neck DATE: 02/02/2023 11:28 INDICATION: Neck pain. TECHNIQUE: Multiple grayscale and Doppler ultrasound images of the head and neck were obtained. COMPARISON: Chest CT 09/01/2022 FINDINGS: There is no abnormal mass or lymphadenopathy in the patient's area of concern. Partially vi sualized is a multinodular goiter. IMPRESSION: 1. No abnormal mass or lymphadenopathy in the patient's area of concern. 2. Multinodular goiter. Reviewed, dictated and finalized at location A.
== END 2023-02-02 10:39 | disposition home or self-care (01) ==
PROVIDERS: PCP Family Medicine; Visit Provider Nurse Practitioner Family
DX: E04.2 Nontoxic multinodular goiter (principal); M47.892 Other spondylosis, cervical region; M47.894 Other spondylosis, thoracic region
CPT/HCPCS: 72040; 72072; 76536

== ENCOUNTER 2023-03-04 08:19 | Outpatient (CLI) | payer MEDICARE, SELFPAY ==
--- NOTE | ~2023-03-04 | CT_ITS ---
Clinical Indication: Pericardial mass CT Scan of the Chest with Contrast: Technique: Contiguous sections were acquired throughout the chest after intravenous administration of 75 cc of Omnipaque 350. Dose reduction technique was used on this scan by utilizing automated exposu re control and iterative reconstruction technique. The dose-length product (DLP) was 276.99 mGy-cm. COMPARISON: 09/01/2022 and 08/28/2021 and 04/25/2021 Findings: 3.8 x 2.7 cm ovoid anterior mediastinal mass with several focal coarse calcifications, is stable from prior exam. There is no filling defect in the pulmonary arterial tree to suggest pulmonary embolus. There is no evidence of aortic dissection or aneurysm. There is no evidence of pleural or pericardial effusion. The lungs are clear. No pulmonary nodules or infiltrates are noted. Images through the upper abdomen reveal no abnormalities. Impression: 3.8 x 2.7 cm anterior mediastinal mass is unchanged. Stability since 2020 is consistent with benign l esion. Reviewed, dictated and finalized at location . Impression: 3.8 x 2.7 cm anterior mediastinal mass is unchanged. Stability since 2020 is co nsistent with benign lesion.
[2023-03-04 08:43] LABS: Estimated Glomerular Filt Rate 52
[2023-03-04 10:39] LABS: Basophils Percent Auto 0.6 % (0.2-1.2); Eosinophils Absolute Auto 0.2 K/mm3 (0-0.3); Eosinophils Percent Auto 4.6 % (0-4.4); Hematocrit 44.1 % (37.0-47.0); Hemoglobin 13.9 g/dL (12.0-15.0); Immature Granulocyte Absolute 0.02 K/mm3 (0.00-0.031); Immature Granulocyte Percent A 0.4 % (0-0.5); Lymphocytes Absolute Auto 1.13 K/mm3 (0.9-3.2); Lymphocytes Percent Auto 22.4 % (18.3-44.2); Mean Corpuscular HGB Conc 31.5 g/dl (32-36); Mean Corpuscular Volume 98.4 fl (80-100); Monocytes Absolute Auto 0.5 K/mm3 (0.1-0.6); Monocytes Percent Auto 10.1 % (2.6-8.5); Neutrophils Absolute Auto 3.1 K/mm3 (1.3-6.7); Neutrophils Percent Auto 61.9 % (45.5-73.1); Platelet Count Result 196 k/mm3 (150-375); Red Blood Count 4.48 M/mm3 (4.2-5.4)
[2023-03-04 10:46] LABS: Anion Gap 7 mmol/L (8-16); Blood Urea Nitrogen 25 mg/dL (7-17); Carbon Dioxide 29 mmol/L (22-30); Chloride 105 mmol/L (98-107); Potassium 4.4 mmol/L (3.4-5.0); Sodium 141 mmol/L (137-145)
[2023-03-04 10:47] LABS: Alanine Aminotransferase 18 U/L (6-35); Albumin Level 4.5 g/dL (3.5-5.1); Alkaline Phosphatase 84 U/L (38-126); Aspartate Amino Transferase 34 U/L (14-36); Bilirubin,Total 0.6 mg/dL (0.2-1.3); Calcium 9.2 mg/dL (8.4-10.2); Estimated Glomerular Filt Rate > 60; Glucose 92 mg/dL (65-110)
== END 2023-03-04 08:20 | disposition home or self-care (01) ==
PROVIDERS: PCP Family Medicine; Visit Provider Internal Medicine Hematology & Oncology
DX: I31.8 Other specified diseases of pericardium (principal)
CPT/HCPCS: 71260; 80053; 85025; Q9967

== ENCOUNTER 2023-04-01 18:08 | Emergency (ER) | payer MEDICARE, SELFPAY ==
--- NOTE | ~2023-04-01 | CT_ITS ---
EXAMINATION: CT cervical spine wo con DATE: 04/01/2023 19:20 INDICATION: Head injury TECHNIQUE: Computed tomography (CT) of the cervical spine was performed without intravenous contrast. The dose-length product (DLP) was 202.24 mGy-cm. Automated exposure control and iterative reconstruc tion technique were employed. COMPARISON: 11/20/2018 FINDINGS: There are 2 mm of chronic anterolisthesis of C4 on C5. There is no fracture. The odontoid p rocess is intact. There is chronic severe loss of intervertebral disc space height from C5-C6 through C7-T1. There is multilevel severe facet and uncovertebral joint osteoarthritis. The prevertebral sof t tissues are normal. IMPRESSION: 1. Severe cervical spondylosis without acute findings or significant interval change. Reviewed, dictated and finalized at location F. IMPRESSION: 1. Severe cervical spondylosis without acute findings or significant interval lamine chaparro.
--- NOTE | ~2023-04-01 | CT_ITS ---
EXAMINATION: CT brain wo con INDICATION: Head injury COMPARISON: 11/20/2018 TECHNIQUE: Standard unenhanced head CT. The dose-length product (DLP) was 605.33 mGy-cm. The mA was a djusted according to patient size. Iterative reconstruction technique was employed. FINDINGS: No acute intraparenchymal hemorrhage. No evidence of mass lesion. No evidence of acute infa rction. There is mild periventricular and subcortical hypodensity probably related to small vessel is chemic disease. There is mild prominence of the sulci and ventricles related to cerebral atrophy. Int racranial calcified cerebral atherosclerosis is noted. No extra-axial collections. No mass effect or midline shift. Changes in the globes are likely from ocular lens surgery. The visualized sinuses and mastoid air cells are well aerated. IMPRESSION: 1. No acute intracranial abnormality. 2. Age related findings. Reviewed, dictated and finalized at location F.
--- NOTE | ~2023-04-01 | XR_ITS ---
EXAMINATION: XR pelvis 1-2V INDICATION: Pain after fall TECHNIQUE: AP view of the pelvis is obtained. COMPARISON: 05/15/2020 FINDINGS: Bone alignment is normal. No fracture is identified. Three orthopedic stabilization screws are present in the right femoral neck. There is mild osteoarthritis of the hips. IMPRESSION: 1. No acute osseous abnormality. Reviewed, dictated and finalized at location F.
--- NOTE | ~2023-04-01 | XR_ITS ---
EXAMINATION: XR elbow LT min 3V DATE: 04/01/2023 19:39 INDICATION: Left elbow pain after fall TECHNIQUE: Anteroposterior, two oblique and lateral views of the left elbow were obtained. COMPARISON: 09/15/2015 FINDINGS: Alignment is normal. No fracture or joint effusion. Joint spaces are normal. Soft tissues are unremarkable. IMPRESSION: 1. No acute osseous abnormality. Reviewed, dictated and finalized at location F.
--- NOTE | ~2023-04-01 | XR_ITS ---
EXAMINATION: XR knee LT 3V DATE: 04/01/2023 19:39 INDICATION: Left knee pain TECHNIQUE: Two views of the left knee were obtained. COMPARISON: None. FINDINGS: Alignment is normal. No fracture or osteochondral lesion. There is tricompartmental osteoar thritis. A small knee joint effusion is present. Soft tissues are unremarkable. IMPRESSION: 1. No acute osseous abnormality. Reviewed, dictated and finalized at location F.
--- NOTE | ~2023-04-01 | XR_ITS ---
EXAMINATION: XR chest 1V INDICATION: Chest pain after fall TECHNIQUE: Frontal view of the chest is obtained. COMPARISON: 11/30/2022 FINDINGS: There is mild atelectasis. No pleural effusion or pneumothorax. The cardiomediastinal silho uette is stable. IMPRESSION: 1. Mild atelectasis. Reviewed, dictated and finalized at location F. IMPRESSION: 1. Mild atelectasis.
[2023-04-01 18:08] VITALS: BP 179/73; PULSE 77; RESP 18; TEMP 36.2; O2SAT 96
--- NOTE | 2023-04-01 18:47 | ED.FALL ---
HPI - Fall General Chief Complaint: Fall Stated Complaint: FALL/HEAD LAC Time Seen by Provider: 04/01/23 18:31 History of Present Illness HPI Narrative: Patient is an 88-year-old female here after a fall. She was on the phone with her son and was getting up from a chair to check an appointment on her calendar when she lost her balance and fell. Patient states that she fell and hit her head on a wooden railing. she does not believe she lost consciousness. Currently complaining of pain to the head and left elbow and knee. She does not take blood thinners. She takes a daily baby ASA. She denies any prodromal chest pain or shortness of breath. She notes that she has a tear on her left elbow and believes she has a cut on her head. She was feeling great today. No cough, congestion, fever, chills. Patient does have a history of recurrent UTIs, does not believe she currently has symptoms of a UTI. Unsure of her last tetanus. Related Data Home Medications Medication Instructions Recorded Confirmed aspirin 81 mg tablet,delayed 81 mg PO DAILY 05/10/20 02/24/23 release (Adult Aspirin Regimen) docusate sodium 100 mg capsule 100 mg PO DAILY 01/21/21 02/24/23 (Colace) [id number] acid 0.4 1 tablet PO DAILY 01/21/21 02/24/23 mg-lycopene 300 mcg-lutein 250 mcg tablet (Centrum Silver) mirabegron 50 mg tablet,extended 50 mg PO DAILY 07/22/21 02/24/23 release 24 hr Allergies Allergy/AdvReac Type Severity Reaction Status Date / Time donepezil AdvReac Intermediate Swelling Verified 02/24/23 09:05 Review of Systems Review of Systems: All systems reviewed & are unremarkable except as noted in HPI and below PMFSH Past Medical History Medical History Anxiety Chronic lower back pain Constipation Degenerative disc disease, lumbar Depression Depression Dyslipidemia Environmental allergies Essential (primary) hypertension GERD without esophagitis H/O: HTN (hypertension) Osteoporosis Overactive bladder Subcapital fracture of right hip (~12/2019) TIA (transient ischemic attack) Surgical History Surgical History H/O: hysterectomy (~1980) History of hip surgery (~12/2019) status post ORIF(01/08) Family History Family History Mother Breast cancer Social History Social History Social History: Caffeine- coffee Smoking status: Never smoker Second hand tobacco smoke exposure: No Alcohol intake: never Substance use: never Substance use type: does not use Lack of Transportation: No Lack of Food: Never True Current Housing: I Have Housing Concerned About Future Housing: No Difficulty Paying Gas/Electric Bills: No Difficulty Paying for Meds: No Currently Unemployed: No Education: High School Diploma/GED Difficulty w/ Childcare or Family Care: No Living arrangements: alone Occupation/Education: retired Gender identity (if verbalized by the patient): Female Spiritual care concerns: No Agree to blood products: Yes Exam Narrative: GENERAL: Well-appearing, well-nourished, and in no acute distress. HEAD: Normocephalic, 2 cm laceration to the superior occiput. No bony deformities appreciated. EYES: PERRLA and EOMI. ENT: Nares clear. Mucous membranes moist. NECK: Supple. No c-spine tenderness. CHEST: Clear to auscultation. No respiratory distress. No chest wall tenderness. HEART: Regular rate and rhythm. Normal peripheral pulses. ABDOMEN: Soft, nontender, nondistended. EXTREMITIES: Normal range of motion. No edema. Tenderness to the left elbow, normal ROM, normal PMS distal to injury. 4 cm overlying skin tear appreciated, bleeding controlled. Tenderness to the left knee, full ROM, no overlying abrasion or laceration. Normal PMS distal to injury.
[2023-04-01 19:42] VITALS: BP 209/79; PULSE 77; RESP 15; TEMP 36.6; O2SAT 98
[2023-04-01] MEDS: ACETAMINOPHEN 500 MG TABLET 1000 MG PO (19:44)
[2023-04-01] MEDS: TETANUS,DIPHTHERIA,AC PERTUSSIS ADULT (0.5 ML) BOOSTRIX IM (19:46)
[2023-04-01 21:08] LABS: Appearance Urine Cloudy (Clear); Bacteria Urine None Seen /hpf; Bilirubin Urine Negative (Negative); Color Urine Yellow (Yellow); Glucose Urine UA Negative (Negative); Ketones Urine Negative (Negative); Leukocyte Esterase Ur 2+ LEU/UL (Negative); Nitrate Urine Negative (Negative); Non Pathogenic Casts 0-2; Protein Urine Negative (Negative); RBC Urine 0-2 /hpf (0-2); Specific Grav Ur 1.011 (1.001-1.035); Squamous Epithelial Cell Urine None seen /hpf (Few); Urobilinogen Urine 0.2 mg/dL (<2.0)
[2023-04-01 21:17] LABS: Add Urine Microscopic? YES
--- NOTE | 2023-04-01 22:03 | PC.NURSE ---
Patient's blood pressure has been elevated throughout her visit. Per EDP Dr. Fischer the patient is okay to be discharged and instructed to caller her PCP tomorrow.
[2023-04-01 22:04] VITALS: BP 187/80; PULSE 69; RESP 16; O2SAT 95
[2023-04-01 22:20] VITALS: BP 188/80; PULSE 72; RESP 15; O2SAT 100
== END 2023-04-01 22:22 | disposition home or self-care (01) ==
PROVIDERS: Emergency Provider Student in an Organized Health Care Education/Training Program; PCP Family Medicine
DX: S01.01XA Laceration without foreign body of scalp, initial encounter (principal); S51.812A Laceration without foreign body of left forearm, initial encounter; Z23 Encounter for immunization; R82.998 Other abnormal findings in urine; I10 Essential (primary) hypertension; E78.5 Hyperlipidemia, unspecified; N32.81 Overactive bladder; K21.9 Gastro-esophageal reflux disease without esophagitis; M81.0 Age-related osteoporosis without current pathological fracture; F32.A Depression, unspecified; F41.9 Anxiety disorder, unspecified; Z86.73 Personal history of transient ischemic attack (TIA), and cerebral infarction without residual deficits; Z79.82 Long term (current) use of aspirin; Z90.710 Acquired absence of both cervix and uterus; M47.812 Spondylosis without myelopathy or radiculopathy, cervical region; W01.198A Fall on same level from slipping, tripping and stumbling with subsequent striking against other object, initial encounter
CPT/HCPCS: 12001; 12002; 70450; 71045; 72125; 72170; 73080; 73562; 81001; 87086; 90471; 90715; 99284; A9270

== ENCOUNTER 2023-04-07 15:57 | Observation (INO) | payer MEDICARE, SELFPAY ==
--- NOTE | ~2023-04-07 | XR_ITS ---
EXAMINATION: XR foot LT min 3V DATE: 04/07/2023 17:17 INDICATION: Left foot injury. TECHNIQUE: 3 views of left foot were obtained. COMPARISON: None. FINDINGS: Bone alignment normal. No fracture. Joint spaces are normal. IMPRESSION: 1. No fracture. Reviewed, dictated and finalized at location E. IMPRESSION: 1. No fracture.
--- NOTE | ~2023-04-07 | MR_ITS ---
MRI of the left knee Clinical history: Status post fall, limited range of motion Technique: Coronal proton density and proton density-weighted images, sagittal proton-density and T2 fat-sat images, and axial proton-density fat-saturated images were acquired. Findings: Anterior and posterior cruciate ligaments are intact. Medial collateral ligament and the la teral collateral ligament complex are intact. Popliteus tendon is intact. There is horizontal tear of the posterior horn and body of the medial meniscus. No lateral meniscal t ear seen. There is a nondisplaced, nondepressed fracture extending from the tibial spine region to the lateral cortex of the lateral tibial plateau/metaphyseal region. There is mild surrounding marrow edema. Ther e is patchy mild chondromalacia of the medial lateral compartments. There is extensive moderate to hi gh-grade chondromalacia of the patellofemoral compartment. Small tricompartmental osteophytes are pre sent. Extensor mechanism is intact. Small to moderate joint effusion present. Impression: Nondisplaced, nondepressed fracture of the proximal tibia, extending from the tibial spine to the lat eral cortex, as detailed above. Horizontal tear of the posterior horn and body of the medial meniscus. Moderate degenerative change of the patellofemoral compartment. Mild degenerative change of the media l and lateral compartments. Small to moderate joint effusion. Reviewed, dictated and finalized at location M. Impression: Nondisplaced, nondepressed fracture of the proximal tibia, extending from the t ibial spine to the lateral cortex, as detailed above. Horizontal tear of the posterior horn and body of the medial meniscus. Moderate degenerative change of the patellofemoral compartment. Mild degenerati ve change of the medial and lateral compartments. Small to moderate joint effusion.
--- NOTE | ~2023-04-07 | MR_ITS ---
EXAMINATION: MR ankle LT wo con DATE: 04/08/2023 12:42 INDICATION: Left ankle swelling and limited range of motion post fall TECHNIQUE: Magnetic resonance imaging (MRI) of the left ankle was performed without intravenous contr ast. Sequences included sagittal, coronal, and axial proton-density weighted fast spin echo without a nd with fat saturation. COMPARISON: None. FINDINGS: Medial ankle ligaments: Deep and superficial deltoid ligaments as well as the spring ligament are normal. Lateral ankle ligaments: The anterior and posterior inferior tibiofibular ligaments are normal. The anterior talofibular, calc aneofibular and posterior talofibular ligaments are normal. Tendons: Achilles tendon is normal. The peroneus longus tendon is normal. Mild tendinopathy and longitudinal s plit tear of the peroneus brevis tendon at the retromalleolar groove. The tibialis anterior and exten sor hallucis longus and extensor digitorum longus tendons are normal. The tibialis posterior, flexor digitorum longus and flexor hallucis longus tendons are normal. Plantar fascia: Plantar aponeurosis is normal. Bones/other: Normal bone marrow signal throughout. No fracture or pathologic marrow replacing process. There is mi ld osteoarthritis at the talonavicular joint with a few small subarticular cystlike changes along the proximal articular surface of the navicula. Additional mild osteoarthritis without degenerative subc hondral changes at a few of the tarsal metatarsal joints. Fluid: No ankle joint effusion. There is mild subcutaneous edema along the lateral ankle and extending over the dorsolateral aspect of the mid and forefoot. IMPRESSION: 1. Subcutaneous edema along the lateral left ankle and over the dorsolateral aspect of the mid and fo refoot. No acute ankle sprain or acute osseous abnormality. 2. Mild tendinopathy and longitudinal split tear of the peroneus brevis tendon. 3. 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 Reviewed, dictated and finalized at location A. IMPRESSION: 1. Subcutaneous edema along the lateral left ankle and over the dorsolateral as pect of the mid and forefoot. No acute ankle sprain or acute osseous abnormalit y. 2. Mild tendinopathy and longitudinal split tear of the peroneus brevis tendon. 3. Mild polyarticular osteoarthritis at the talonavicular and a few tarsal meta tarsal joints.
--- NOTE | ~2023-04-07 | XR_ITS ---
AP view of the pelvis and AP and lateral views of the left hip Clinical history: Pain COMPARISON: 04/01/2023 and 05/15/2020 Findings: No acute fracture or dislocation is seen. Stable orthopedic screws present in the right fem oral neck. Osseous alignment is anatomic. Bilateral hip and SI joint spaces are preserved. Soft tissu es are unremarkable. Impression: No acute abnormality seen. Stable right femoral neck orthopedic screws. Reviewed, dictated and finalized at location . Impression: No acute abnormality seen. Stable right femoral neck orthopedic screws.
--- NOTE | ~2023-04-07 | CT_ITS ---
EXAMINATION: CT foot LT wo con DATE: 04/07/2023 19:25 INDICATION: Left foot injury. TECHNIQUE: Computed tomography (CT) of the left foot was performed without intravenous contrast. Auto mated exposure control and iterative reconstruction technique were employed. The dose-length product was 511.30 mGy-cm. COMPARISON: Left foot and ankle radiographs 04/07/2023 FINDINGS: Bone alignment is normal. No fracture. There is a benign bone island in first metatarsal. T here is mild osteoarthritis of some of the interphalangeal joints. There is soft tissue swelling of t he foot and ankle. IMPRESSION: 1. No fracture. Reviewed, dictated and finalized at location E. IMPRESSION: 1. No fracture.
--- NOTE | ~2023-04-07 | CT_ITS ---
EXAMINATION: CT knee LT wo con DATE: 04/07/2023 19:25 INDICATION: Left knee injury. TECHNIQUE: Computed tomography (CT) of the left knee was performed without intravenous contrast. Auto mated exposure control and iterative reconstruction technique were employed. The dose-length product was 568.13 mGy-cm. COMPARISON: Left knee radiographs 04/07/2023 FINDINGS: Bone alignment is normal. No fracture. There is moderate osteoarthritis of patellofemoral c ompartment and mild osteoarthritis of medial and lateral compartments. There is a moderate-sized knee joint effusion. IMPRESSION: 1. Moderate left knee osteoarthritis. 2. Moderate-sized left knee joint effusion. Reviewed, dictated and finalized at location E.
--- NOTE | ~2023-04-07 | XR_ITS ---
EXAMINATION: XR ankle LT min 3V DATE: 04/07/2023 17:17 INDICATION: Left ankle injury and swelling. TECHNIQUE: 4 views of left ankle were obtained. COMPARISON: None. FINDINGS: Bone alignment is normal. No fracture. Joint spaces are normal. There is ankle soft tissue swelling. IMPRESSION: 1. No fracture. Reviewed, dictated and finalized at location E. IMPRESSION: 1. No fracture.
--- NOTE | ~2023-04-07 | XR_ITS ---
EXAMINATION: XR knee LT min 4V DATE: 04/07/2023 17:17 INDICATION: Left knee injury and swelling. TECHNIQUE: 4 views of left knee were obtained. COMPARISON: Left knee radiographs 04/01/2023 FINDINGS: Bone alignment is normal. No fracture. There is mild tricompartmental osteoarthritis. There is a moderate-sized knee joint effusion. IMPRESSION: 1. Mild left knee osteoarthritis. 2. Moderate-sized left knee joint effusion. Reviewed, dictated and finalized at location E.
[2023-04-07 16:17] VITALS: BP 135/80; PULSE 73; RESP 14; TEMP 36.4; O2SAT 99
--- NOTE | 2023-04-07 16:47 | ED.GENADULT ---
HPI - General Adult General Chief complaint: Fall <Ayde Cooper October, Last Filed: 04/07/23 16:49> Stated complaint: fall 3 days ago with left hip pain <Ayde Cooper October, Last Filed: 04/07/23 16:49> Time Seen by Provider: 04/07/23 17:04 <Ayde Cooper October, - Last Filed: 04/07/23 16:49> History of Present Illness HPI narrative: Mariam Underwood is an 88 y/o female who presents with reports of having a fall 6 days ago, she was evaluated here had scans done and jarad to her head placed, she follow up with her PCP yesterday. Today she comes in because she has been having increased pain to her left ankle/foot since the fall today the pain is so severe she cannot put weight on it. Denies any new injury/trauma/ ambulating and palpation makes her pain worse Moderate ankle swelling noted/ pulses present Skin warm/dry <Ayde Cooper October, Last Filed: 04/07/23 16:49> Related Data Home medications: Home Medications Medication Instructions Recorded Confirmed aspirin 81 mg tablet,delayed 81 mg PO DAILY 05/10/20 04/06/23 release (Adult Aspirin Regimen) docusate sodium 100 mg capsule 100 mg PO DAILY 01/21/21 04/06/23 (Colace) [id number]-[id number] acid 0.4 1 tablet PO DAILY 01/21/21 04/06/23 mg-lycopene 300 mcg-lutein 250 mcg tablet (Centrum Silver) mirabegron 50 mg tablet,extended 50 mg PO DAILY 07/22/21 04/08/23 release 24 hr amlodipine 5 mg tablet 5 mg PO DAILY 04/08/23 04/08/23 sertraline 50 mg tablet 50 mg PO DAILY 04/08/23 04/08/23 <Ayde Cooper October, - Last Filed: 04/07/23 16:49> Allergies/adverse reactions: Allergies Allergy/AdvReac Type Severity Reaction Status Date / Time donepezil AdvReac Intermediate Swelling Verified 04/07/23 16:25 <Ayde Cooper October, - Last Filed: 04/07/23 16:49> Review of Systems Review of Systems: All systems as dictated in HPI <Lon Gomez PA-C - Last Filed: 04/08/23 02:12> [facility] Past Medical History Medical History: Medical History Anxiety Chronic lower back pain Constipation Degenerative disc disease, lumbar Depression Depression Dyslipidemia Environmental allergies Essential (primary) hypertension GERD without esophagitis H/O: HTN (hypertension) Osteoporosis Overactive bladder Subcapital fracture of right hip (~12/2019) TIA (transient ischemic attack) <Ayde Humphreys, [employer] - Last Filed: 04/07/23 16:49> Surgical History Surgical History: Surgical History H/O: hysterectomy (~1980) History of hip surgery (~12/2019) status post ORIF(01/08) <Ayde Humphreys, [employer] - Last Filed: 04/07/23 16:49> Family History Family History: Family History Mother Breast cancer <Ayde Cooper October, - Last Filed: 04/07/23 16:49> Social History Social History: Social History Social History: Caffeine- coffee Smoking status: Never smoker Second hand tobacco smoke exposure: No Alcohol intake: never Substance use: never Substance use type: does not use Lack of Transportation: No Lack of Food: Never True Current Housing: I Have Housing Concerned About Future Housing: No Difficulty Paying Gas/Electric Bills: No Difficulty Paying for Meds: No Currently Unemployed: No Education: High School Diploma/GED Difficulty w/ Childcare or Family Care: No Living arrangements: alone Occupation/Education: retired Gender identity (if verbalized by the patient): Female Spiritual care concerns: No Agree to blood products: Yes <Ayde Humphreys, - Last Filed: 04/07/23 16:49> Exam Narrative: GENERAL: Well-appearing, well-nourished, and in no acute distress. HEAD: Normocephalic, atraumatic. EYES: PERRLA and EOMI. ENT: Nares clear, no rhinorrhea or epistaxis. Muco
[2023-04-07] MEDS: ACETAMINOPHEN 325 MG TABLET 650 MG PO (18:26)
[2023-04-07 18:53] LABS: Basophils Percent Auto 0.6 % (0.2-1.2); Eosinophils Absolute Auto 0.3 K/mm3 (0-0.3); Eosinophils Percent Auto 3.8 % (0-4.4); Hematocrit 40.3 % (37.0-47.0); Hemoglobin 12.6 g/dL (12.0-15.0); Immature Granulocyte Absolute 0.02 K/mm3 (0.00-0.031); Immature Granulocyte Percent A 0.3 % (0-0.5); Lymphocytes Absolute Auto 1.15 K/mm3 (0.9-3.2); Lymphocytes Percent Auto 17.3 % (18.3-44.2); Mean Corpuscular HGB Conc 31.3 g/dl (32-36); Mean Corpuscular Hemoglobin 30.7 pg (26-34); Mean Corpuscular Volume 98.3 fl (80-100); Mean Platelet Volume 11.2 fl (7.4-10.4); Monocytes Absolute Auto 0.7 K/mm3 (0.1-0.6); Monocytes Percent Auto 9.9 % (2.6-8.5); Neutrophils Absolute Auto 4.5 K/mm3 (1.3-6.7); Neutrophils Percent Auto 68.1 % (45.5-73.1); Platelet Count Result 221 k/mm3 (150-375); Red Cell Distribution Width 12.2 % (11.5-14.5); White Blood Count 6.7 K/mm3 (4.5-10.0)
[2023-04-07 19:10] LABS: Partial Thromboplastin Time 27.4 SECONDS (22.3-36.8); Prothrombin Time 13.3 Seconds (11.1-14.7)
[2023-04-07 19:11] LABS: Alanine Aminotransferase 17 U/L (6-35); Albumin Level 4.3 g/dL (3.5-5.1); Alkaline Phosphatase 91 U/L (38-126); Anion Gap 6 mmol/L (8-16); Aspartate Amino Transferase 28 U/L (14-36); Bilirubin,Total 0.6 mg/dL (0.2-1.3); Blood Urea Nitrogen 25 mg/dL (7-17); Calcium 9.4 mg/dL (8.4-10.2); Carbon Dioxide 27 mmol/L (22-30); Chloride 104 mmol/L (98-107); Estimated CRCL calculation 35 ml/min; Estimated Glomerular Filt Rate 59; Glucose 112 mg/dL (65-110); Sodium 137 mmol/L (137-145)
[2023-04-07 22:01] LABS: Appearance Urine Clear (Clear); Bacteria Urine None Seen /hpf; Bilirubin Urine Negative (Negative); Blood Urine Negative (Negative); Color Urine Yellow (Yellow); Glucose Urine UA Negative (Negative); Ketones Urine Negative (Negative); Leukocyte Esterase Ur Trace LEU/UL (Negative); Nitrate Urine Negative (Negative); Non Pathogenic Casts 0-2; Protein Urine Negative (Negative); RBC Urine 0-2 /hpf (0-2); Specific Grav Ur 1.011 (1.001-1.035); Squamous Epithelial Cell Urine None seen /hpf (Few); Urobilinogen Urine 0.2 mg/dL (<2.0); WBC Urine 0-5 /hpf; pH Urine 6.5 (5.0-9.0)
[2023-04-07 22:04] LABS: Add Urine Microscopic? YES
[2023-04-07 23:04] VITALS: BP 180/90; PULSE 79; RESP 18; TEMP 36.6; O2SAT 98
[2023-04-08 01:29] VITALS: BMI 27.5
--- NOTE | 2023-04-08 01:34 | ADMGEN ---
This patient, Mariam Underwood, was admitted to Medical Room 245-. Patient/family oriented to hospital policies and general routines including ID bracelet, bed and alarms, visiting hours, pain management, procedures, bathroom and other care routines, personal items, smoking policy, room service/diet, and visiting hours. Information on how to activate the Rapid Response Team has been discussed. Patient/Family are encouraged to report perceived risks to care and to ask questions if they do not understand what they are told or what they should do.
[2023-04-08 01:57] VITALS: BP 186/76; PULSE 81; RESP 16; TEMP 37.1; O2SAT 94
[2023-04-08 06:00] VITALS: BP 182/75; PULSE 77; RESP 16; TEMP 36.6; O2SAT 94
--- NOTE | 2023-04-08 07:35 | PM.IMHP ---
H&P: HPI History of Present Illness Date/Time: 04/08/23 07:35 Chief Complaint: decreased mobility Narrative: This is an 88-year-old female with a past medical history of depression, anxiety, dementia, dyslipidemia, hypertension, GERD, osteoporosis, overactive bladder, degenerative disc disease of the lumbar spine, and TIA. She most recently was seen in our ER on 04/01 after sustaining a mechanical fall at home. She says she tripped over the inlay that surrounds her stairs falling on her left side. Imaging at that time was negative for acute process or fractures of left knee and left ankle. Her head CT and cervical spine CT were also negative. She did sustain a laceration to the top of her head requiring jarad. She was discharged home same day. Her family has brought her back to the hospital on 04/07 with concerns of limited mobility given left knee and ankle pain. Family has concerns that she can no longer remain independent in her home and needs assistance with placement. In the ER CT of her left knee shows osteoarthritis and a moderate-size left knee joint effusion and CT of her left foot shows no acute fracture. She also had a low left hip two view imaging completed which shows stable right femoral neck orthopedic screws from previous fracture. Her labs were reviewed and are essentially unremarkable, negative UA. She is seen this morning lying in bed in no acute distress. She is alert and oriented to person, place, month, but is unsure of the year. She states that she has been falling more and more at home and she is concerned that she cannot return home safely. Currently she is unable to bear weight to her left lower extremity and has limited range of motion with passive flexion to the left knee. Her left knee is edematous and warm with old ecchymosis. She denies headache, dizziness, chest pain, shortness a breath, sore throat, runny nose, cough, nausea, vomiting, diarrhea. She does complain of constipation for which she is ask for stool softener. She is being admitted for PT and OT evaluation for disposition with possible placement. Also obtain an MRI of her left knee to rule out ligament damage. May need to consult Orthopedics to drain left knee effusion. Review of Systems Review of Systems: All systems reviewed & are unremarkable except as noted in HPI and below PMFSH Past Medical History Medical History Anxiety Chronic lower back pain Constipation Degenerative disc disease, lumbar Depression Depression Dyslipidemia Environmental allergies Essential (primary) hypertension GERD without esophagitis H/O: HTN (hypertension) Osteoporosis Overactive bladder Subcapital fracture of right hip (~12/2019) TIA (transient ischemic attack) Surgical History Surgical History H/O: hysterectomy (~1980) History of hip surgery (~12/2019) status post ORIF(01/08) Family History Family History Mother Breast cancer Social History Social History Social History: Caffeine- coffee Smoking status: Never smoker Second hand tobacco smoke exposure: No Alcohol intake: never Substance use: never Substance use type: does not use Lack of Transportation: No Lack of Food: Never True Current Housing: I Have Housing Concerned About Future Housing: No Difficulty Paying Gas/Electric Bills: No Difficulty Paying for Meds: No Currently Unemployed: No Education: High School Diploma/GED Difficulty w/ Childcare or Family Care: No Living arrangements: alone Occupation/Education: retired Gender identity (if verbalized by the patient): Female Spiritual care concerns: No Agree to blood products: Yes Meds Home Medications and Allergies Home Medications Medication Instructions Recorded C
[2023-04-08 09:40] VITALS: O2SAT 94
[2023-04-08] MEDS: lisinopriL 10 MG TABLET 30 MG PO (10:50)
[2023-04-08] MEDS: DOCUSATE SODIUM 100 MG CAPSULE PO ×2 (10:50→20:44)
[2023-04-08] MEDS: amLODIPine BESYLATE 5 MG TABLET 10 MG PO (10:50)
[2023-04-08] MEDS: MELOXICAM 7.5 MG TABLET 15 MG PO (10:51)
[2023-04-08] MEDS: SERTRALINE HCL 50 MG TABLET PO (10:51)
[2023-04-08] MEDS: ASPIRIN 81 MG ENTERIC TABLET PO (10:51)
[2023-04-08] MEDS: POTASSIUM CHLORIDE 20 MEQ ER TABLET PO (10:51)
[2023-04-08] MEDS: PANTOPRAZOLE 40 MG TABLET PO (10:51)
[2023-04-08] MEDS: ATORVASTATIN 20 MG TABLET PO (10:51)
[2023-04-08] MEDS: MIRABEGRON 50 MG ER TABLET PO (10:51)
[2023-04-08 14:00] VITALS: BP 178/72; PULSE 74; RESP 16; TEMP 36.5; O2SAT 94
--- NOTE | 2023-04-08 14:24 | PCPTNOTE ---
Pt will likely need ortho consult/weight bearing recommendations prior to mobilizing. Pt also has bedrest orders active at this time. RN aware. Will contact hospitalist for recommendations.
[2023-04-08 22:00] VITALS: BP 170/87; PULSE 79; RESP 16; TEMP 36.3; O2SAT 94
[2023-04-09 05:12] LABS: Basophils Percent Auto 0.4 % (0.2-1.2); Eosinophils Absolute Auto 0.3 K/mm3 (0-0.3); Eosinophils Percent Auto 4.2 % (0-4.4); Hematocrit 39.9 % (37.0-47.0); Hemoglobin 12.7 g/dL (12.0-15.0); Immature Granulocyte Absolute 0.04 K/mm3 (0.00-0.031); Immature Granulocyte Percent A 0.5 % (0-0.5); Lymphocytes Absolute Auto 1.28 K/mm3 (0.9-3.2); Lymphocytes Percent Auto 16.8 % (18.3-44.2); Mean Corpuscular HGB Conc 31.8 g/dl (32-36); Mean Corpuscular Hemoglobin 30.7 pg (26-34); Mean Corpuscular Volume 96.4 fl (80-100); Mean Platelet Volume 10.7 fl (7.4-10.4); Monocytes Absolute Auto 0.6 K/mm3 (0.1-0.6); Monocytes Percent Auto 7.9 % (2.6-8.5); Neutrophils Absolute Auto 5.4 K/mm3 (1.3-6.7); Neutrophils Percent Auto 70.2 % (45.5-73.1); Platelet Count Result 225 k/mm3 (150-375); Red Blood Count 4.14 M/mm3 (4.2-5.4); Red Cell Distribution Width 12.1 % (11.5-14.5); White Blood Count 7.6 K/mm3 (4.5-10.0)
--- NOTE | 2023-04-09 05:22 | PC.NURSE ---
Around 0430 pt pulled IV out. Asked other RNs on the floor to attempt new IV insertion and unsuccessful. supervisor heading also attempted IV insertion and was unsuccessful. Will inform charge preparation technician and RN assuming care for the daytime of no IV access.
[2023-04-09 05:28] LABS: Alanine Aminotransferase 16 U/L (6-35); Albumin Level 4.2 g/dL (3.5-5.1); Alkaline Phosphatase 95 U/L (38-126); Anion Gap 3 mmol/L (8-16); Aspartate Amino Transferase 29 U/L (14-36); Bilirubin,Total 0.7 mg/dL (0.2-1.3); Blood Urea Nitrogen 20 mg/dL (7-17); Calcium 9.2 mg/dL (8.4-10.2); Carbon Dioxide 27 mmol/L (22-30); Chloride 106 mmol/L (98-107); Estimated CRCL calculation 42 ml/min; Estimated Glomerular Filt Rate > 60; Glucose 112 mg/dL (65-110); Magnesium 2.2 mg/dL (1.6-2.3); Phosphorus 2.9 mg/dL (2.5-4.5); Potassium 3.6 mmol/L (3.4-5.0); Sodium 136 mmol/L (137-145)
[2023-04-09 06:00] VITALS: BP 169/89; PULSE 89; RESP 18; TEMP 36.6; O2SAT 96
--- NOTE | 2023-04-09 07:08 | PM.IMPN ---
Progress Note: A&P Assessment and Plan (1) Falls frequently: Code(s): R29.6 - Repeated falls Status: Acute Assessment and Plan: Last fall 04/01 and was evaluated at our ED sustained scalp laceration but no acute fracture or intracranial, cervical spine abnormality D/c'd home but patient unable to move around freely in her environment due to persistent left knee pain. CT of knee and ankle negative for fractures Will proceed with MRI today of knee and ankle PT/OT consults and rec's appreciated Tylenol prn and scheduled meloxicam. Added tramadol (2) Left knee pain: Qualifiers: Chronicity: acute Qualified Code(s): M25.562 - Pain in left knee Code(s): M25.562 - Pain in left knee Status: Acute Assessment and Plan: Left knee MRI, Impression: Nondisplaced, nondepressed fracture of the proximal tibia, extending from the tibial spine to the lateral cortex, as detailed above. Horizontal tear of the posterior horn and body of the medial meniscus. Moderate degenerative change of the patellofemoral compartment. Mild degenerative change of the medial and lateral compartments. Small to moderate joint effusion. Left Ankle MRI, IMPRESSION: 1. Subcutaneous edema along the lateral left ankle and over the dorsolateral aspect of the mid and forefoot. No acute ankle sprain or acute osseous abnormality. 2. Mild tendinopathy and longitudinal split tear of the peroneus brevis tendon. 3. 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 Orthopedics was consulted to review the imaging and provide recommendations for possible intervention vs conservative measures with immobilizer or brace. Recommendations are appreciated. (3) Scalp laceration: Qualifiers: Encounter type: subsequent encounter Qualified Code(s): S01.01XD - Laceration without foreign body of scalp, subsequent encounter Code(s): S01.01XA - Laceration without foreign body of scalp, initial encounter Status: Acute Assessment and Plan: Amado have been removed. Healing appropriately and well approximated (4) Frequency of urination: Code(s): R35.0 - Frequency of micturition Status: Acute Assessment and Plan: Overactive bladder, on mirabegron Vasques was placed for retention After weight bearing rec's from ortho will plan to d/c vasques and attempt void trial D/C vasques today 04/09 and attempt voiding trial (5) Essential (primary) hypertension: Code(s): I10 - Essential (primary) hypertension Status: Acute Assessment and Plan: Blood pressures have been consistently elevated this admission. SBP in the 170's It appears her amlodipine was recently increased from 5 mg to 10 mg at her PCP visit Increased dose on 04/09. This could be pain related as well. Added tramadol for pain control. Plan Feeding:Regular diet Analgesia:Tylenol, meloxicam, Tramadol Thromboembolic prophylaxis: lovenox Ulcer prophylaxis: PPI Glycemic control: n/a Bowel regimen: miralax and colace Lines: PIV Antibiotics: N/A Disposition: Lives at home but is likely going to need placement as she has been falling frequently. PT/OT on hold until ortho can give us rec's for weight bearing status. Subjective Date/time seen: 04/09/23 07:08 Interval history: This is an 88-year-old female with a past medical history of depression, anxiety, dementia, dyslipidemia, hypertension, GERD, osteoporosis, overactive bladder, degenerative disc disease of the lumbar spine, and TIA.? She most recently was seen in our ER on 04/01 after sustaining a mechanical fall at home.? She says she tripped over the inlay that surrounds her stairs falling on her left side.? Imaging at that time was negative for acute process or fractures of left knee and left ankle.? Her head CT and cervical spine CT were also negative.? She did sustain a laceration to the top o
--- NOTE | 2023-04-09 09:18 | PM.CNOR ---
Assessment and Plan Assessment and plan (1) Tibia fracture: Qualifiers: Encounter type: initial encounter Tibia location: proximal Fracture type: closed Laterality: left Fracture morphology: other fracture Qualified Code(s): S82.192A - Other fracture of upper end of left tibia, initial encounter for closed fracture Code(s): S82.209A - Unspecified fracture of shaft of unspecified tibia, initial encounter for closed fracture Status: Acute Assessment and Plan: History, exam, radiographs, CT scan and MRI reviewed with the patient. MRI of the left knee reveals a nondisplaced, nondepressed fracture of the proximal tibia. Fracture not seen on radiographs or CT scan. The fracture type and injury as well as radiographs discussed with the patient. Operative and nonoperative treatment options reviewed. Recommended non operative treatment. Risk of nonunion, malunion or late displacement discussed. Stiffness, pain and possible dysfunction of the joint discussed. Fracture precautions and activity restrictions reviewed. The patient verbalizes understanding. Patient to begin PT and OT. Hinged knee brace or knee immobilizer for pain relief if needed. Weightbearing as tolerated. May follow up in the outpatient orthopedic clinic in 6 weeks for repeat radiographs. Pending evaluation by PT and OT, patient may require placement for further rehabilitation. pain control. (2) Falls frequently: Code(s): R29.6 - Repeated falls Status: Acute History of Present Illness HPI Consult date: 04/09/23 Consult reason: fracture Chief complaint: Frequent Falls, Dementia Narrative: 88-year-old female initially seen in the emergency room on April 01 after extending a fall at home. Imaging at that time was negative for fractures the left knee in the left ankle. She was discharged home at that time. the patient's family brought her back to the emergency room on 04/07 with concerns of limited mobility given the left knee and ankle pain. Family has concerns that she can no longer be at home alone and may need placement to a [facility] facility or assisted living. History, exam, radiographs, CT scans and MRI reviewed. MRI of the left knee reveals a nondisplaced, nondepressed fracture of the proximal tibia extending from the tibial spine to the lateral cortex. Orthopedic evaluation requested for further recommendations. Review of Systems Review of Systems: All systems reviewed & are unremarkable except as noted in HPI and below PMFSH Past Medical History Medical History (Updated 04/09/23 @ 12:04 by DEEPTI Mckinley) Anxiety Chronic lower back pain Constipation Degenerative disc disease, lumbar Depression Depression Dyslipidemia Environmental allergies Essential (primary) hypertension GERD without esophagitis H/O: HTN (hypertension) Osteoporosis Overactive bladder Subcapital fracture of right hip (~12/2019) TIA (transient ischemic attack) Tibia fracture Surgical History Surgical History H/O: hysterectomy (~1980) History of hip surgery (~12/2019) status post ORIF(01/08) Family History Family History Mother Breast cancer Social History Social History Social History: Caffeine- coffee Smoking status: Never smoker Second hand tobacco smoke exposure: No Alcohol intake: never Substance use: never Substance use type: does not use Lack of Transportation: No Lack of Food: Never True Current Housing: I Have Housing Concerned About Future Housing: No Difficulty Paying Gas/Electric Bills: No Difficulty Paying for Meds: No Currently Unemployed: No Education: High School Diploma/GED Difficulty w/ Childcare or Family Care: No Living arrangements: alone Occupation/Education: retired Gender identity (if verbali
[2023-04-09] MEDS: POTASSIUM CHLORIDE 20 MEQ ER TABLET PO (09:56)
[2023-04-09] MEDS: polyethylene glycoL 3350 17 GM POWD.PACK PO (09:56)
[2023-04-09] MEDS: ENOXAPARIN 40 MG/0.4 ML SYRINGE SUB-Q (09:56)
[2023-04-09] MEDS: SERTRALINE HCL 50 MG TABLET PO (09:57)
[2023-04-09] MEDS: lisinopriL 10 MG TABLET 30 MG PO (09:58)
[2023-04-09] MEDS: amLODIPine BESYLATE 5 MG TABLET 10 MG PO (09:58)
[2023-04-09] MEDS: PANTOPRAZOLE 40 MG TABLET PO (09:58)
[2023-04-09] MEDS: MELOXICAM 7.5 MG TABLET 15 MG PO (09:58)
[2023-04-09] MEDS: ASPIRIN 81 MG ENTERIC TABLET PO (09:59)
[2023-04-09] MEDS: MIRABEGRON 50 MG ER TABLET PO (09:59)
[2023-04-09] MEDS: DOCUSATE SODIUM 100 MG CAPSULE PO ×2 (09:59→20:41)
[2023-04-09] MEDS: ATORVASTATIN 20 MG TABLET PO (09:59)
[2023-04-09 14:00] VITALS: BP 149/70; PULSE 78; RESP 18; TEMP 36.6; O2SAT 96
[2023-04-09 21:18] VITALS: BP 189/76; PULSE 80; RESP 20; TEMP 36.3; O2SAT 93
[2023-04-09 22:18] VITALS: O2SAT 93
[2023-04-10 04:07] VITALS: BP 158/98; PULSE 86; RESP 18; TEMP 36.1; O2SAT 98
[2023-04-10 05:46] LABS: Basophils Percent Auto 0.7 % (0.2-1.2); Eosinophils Absolute Auto 0.3 K/mm3 (0-0.3); Eosinophils Percent Auto 5.6 % (0-4.4); Hematocrit 37.2 % (37.0-47.0); Hemoglobin 11.8 g/dL (12.0-15.0); Immature Granulocyte Absolute 0.02 K/mm3 (0.00-0.031); Immature Granulocyte Percent A 0.3 % (0-0.5); Lymphocytes Absolute Auto 1.04 K/mm3 (0.9-3.2); Lymphocytes Percent Auto 17.1 % (18.3-44.2); Mean Corpuscular HGB Conc 31.7 g/dl (32-36); Mean Corpuscular Hemoglobin 31.1 pg (26-34); Mean Corpuscular Volume 97.9 fl (80-100); Mean Platelet Volume 10.9 fl (7.4-10.4); Monocytes Absolute Auto 0.7 K/mm3 (0.1-0.6); Neutrophils Percent Auto 65.3 % (45.5-73.1); Platelet Count Result 210 k/mm3 (150-375); Red Cell Distribution Width 12.1 % (11.5-14.5); White Blood Count 6.1 K/mm3 (4.5-10.0)
[2023-04-10 05:54] LABS: Alanine Aminotransferase 15 U/L (6-35); Albumin Level 3.7 g/dL (3.5-5.1); Alkaline Phosphatase 73 U/L (38-126); Anion Gap 3 mmol/L (8-16); Aspartate Amino Transferase 25 U/L (14-36); Bilirubin,Total 0.6 mg/dL (0.2-1.3); Blood Urea Nitrogen 20 mg/dL (7-17); Carbon Dioxide 29 mmol/L (22-30); Chloride 105 mmol/L (98-107); Estimated CRCL calculation 34 ml/min; Estimated Glomerular Filt Rate 59; Glucose 96 mg/dL (65-110); Magnesium 2.1 mg/dL (1.6-2.3); Potassium 4.2 mmol/L (3.4-5.0); Sodium 137 mmol/L (137-145)
[2023-04-10] MEDS: traMADol HCL (*CRX) 50 MG TABLET PO (10:38)
[2023-04-10] MEDS: ENOXAPARIN 40 MG/0.4 ML SYRINGE SUB-Q (10:39)
[2023-04-10] MEDS: lisinopriL 10 MG TABLET 30 MG PO (10:45)
[2023-04-10] MEDS: MIRABEGRON 50 MG ER TABLET PO (10:45)
[2023-04-10] MEDS: ASPIRIN 81 MG ENTERIC TABLET PO (10:46)
[2023-04-10] MEDS: amLODIPine BESYLATE 5 MG TABLET 10 MG PO (10:46)
[2023-04-10] MEDS: POTASSIUM CHLORIDE 20 MEQ ER TABLET PO (10:46)
[2023-04-10] MEDS: DOCUSATE SODIUM 100 MG CAPSULE PO (10:46)
[2023-04-10] MEDS: ATORVASTATIN 20 MG TABLET PO (10:47)
[2023-04-10 10:49] VITALS: O2SAT 97
[2023-04-10] MEDS: MELOXICAM 7.5 MG TABLET 15 MG PO (10:54)
[2023-04-10] MEDS: SERTRALINE HCL 50 MG TABLET PO (11:01)
[2023-04-10] MEDS: polyethylene glycoL 3350 17 GM POWD.PACK PO (11:01)
--- NOTE | 2023-04-10 13:27 | PM.DS ---
DS: Admitting Diagnosis Discharge Date 04/10 Admitting Diagnosis Fall DS: Discharge Diagnosis Discharge Diagnosis (1) Falls frequently: Code(s): R29.6 - Repeated falls Status: Acute Assessment and Plan: Last fall 04/01 and was evaluated at our ED sustained scalp laceration but no acute fracture or intracranial, cervical spine abnormality D/c'd home but patient unable to move around freely in her environment due to persistent left knee pain. CT of knee and ankle negative for fractures Will proceed with MRI today of knee and ankle PT/OT consults and rec's appreciated Tylenol prn and scheduled meloxicam. Added tramadol (2) Left knee pain: Qualifiers: Chronicity: acute Qualified Code(s): M25.562 - Pain in left knee Code(s): M25.562 - Pain in left knee Status: Acute Assessment and Plan: Left knee MRI, Impression: Nondisplaced, nondepressed fracture of the proximal tibia, extending from the tibial spine to the lateral cortex, as detailed above. Horizontal tear of the posterior horn and body of the medial meniscus. Moderate degenerative change of the patellofemoral compartment. Mild degenerative change of the medial and lateral compartments. Small to moderate joint effusion. Left Ankle MRI, IMPRESSION: 1. Subcutaneous edema along the lateral left ankle and over the dorsolateral aspect of the mid and forefoot. No acute ankle sprain or acute osseous abnormality. 2. Mild tendinopathy and longitudinal split tear of the peroneus brevis tendon. 3. 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 Orthopedics does not recommend surgery. Patient is weight-bearing as tolerated. Physical therapy has worked with her and does not require a knee brace. Patient can discharge to [facility] today. She will need repeat imaging in 6 weeks with a follow-up at the orthopedic clinic at that time. (3) Scalp laceration: Qualifiers: Encounter type: subsequent encounter Qualified Code(s): S01.01XD - Laceration without foreign body of scalp, subsequent encounter Code(s): S01.01XA - Laceration without foreign body of scalp, initial encounter Status: Acute Assessment and Plan: Amado have been removed. Healing appropriately and well approximated (4) Frequency of urination: Code(s): R35.0 - Frequency of micturition Status: Acute Assessment and Plan: Overactive bladder, on mirabegron Vasques was placed for retention After weight bearing rec's from ortho will plan to d/c vasques and attempt void trial D/C vasques today 04/09 and attempt voiding trial (5) Essential (primary) hypertension: Code(s): I10 - Essential (primary) hypertension Status: Acute Assessment and Plan: Blood pressures have been consistently elevated this admission. SBP in the 170's It appears her amlodipine was recently increased from 5 mg to 10 mg at her PCP visit Increased dose on 04/09. This could be pain related as well. Added tramadol for pain control. Plan Feeding:Regular diet Analgesia:Tylenol, meloxicam, Tramadol Thromboembolic prophylaxis: lovenox Ulcer prophylaxis: PPI Glycemic control: n/a Bowel regimen: miralax and colace Lines: PIV Antibiotics: N/A Disposition: Lives at home but is likely going to need placement as she has been falling frequently. PT/OT on hold until ortho can give us rec's for weight bearing status. DS: Summary Hospital Course Hospital Course: Interval history: This is an 88-year-old female with a past medical history of depression, anxiety, dementia, dyslipidemia, hypertension, GERD, osteoporosis, overactive bladder, degenerative disc disease of the lumbar spine, and TIA.? She most recently was seen in our ER on 04/01 after sustaining a mechanical fall at home.? She says she tripped over the inlay that surrounds her stairs falling on her left side.? Imaging at t
[2023-04-10 14:30] VITALS: BP 158/87; PULSE 84; RESP 16; TEMP 36.4; O2SAT 98
== END 2023-04-10 18:55 ==
LOC: ANHED 22:58 → ANH2MED 04-08 02:08
PROVIDERS: Nurse Practitioner Acute Care; Admitting Provider Internal Medicine; Emergency Provider Physician Assistant; PCP Family Medicine; Visit Provider Internal Medicine
DX: M25.572 Pain in left ankle and joints of left foot (principal); M17.12 Unilateral primary osteoarthritis, left knee; S82.209A Unspecified fracture of shaft of unspecified tibia, initial encounter for closed fracture; R29.6 Repeated falls; F03.90 Unspecified dementia, unspecified severity, without behavioral disturbance, psychotic disturbance, mood disturbance, and anxiety; M51.36 Other intervertebral disc degeneration, lumbar region; F41.9 Anxiety disorder, unspecified; F32.A Depression, unspecified; M54.9 Dorsalgia, unspecified; G89.29 Other chronic pain; E78.5 Hyperlipidemia, unspecified; K59.00 Constipation, unspecified; I10 Essential (primary) hypertension; K21.9 Gastro-esophageal reflux disease without esophagitis; M81.0 Age-related osteoporosis without current pathological fracture; N32.81 Overactive bladder; Z86.73 Personal history of transient ischemic attack (TIA), and cerebral infarction without residual deficits; Z79.82 Long term (current) use of aspirin; Z79.899 Other long term (current) drug therapy
CPT/HCPCS: 36415; 73502; 73564; 73610; 73630; 73700; 73721; 80053; 81001; 83735; 84100; 85025; 85610; 85730; 96372; 97161; 97165; 99285; A9270; G0378; J1650

== ENCOUNTER → 2023-05-25 11:25 | Outpatient (CLI) | payer MEDICARE, SELFPAY ==
--- NOTE | ~2023-05-25 | XR_ITS ---
Left ankle Technique: AP, oblique, and lateral views were obtained. Clinical History: Effusion Findings: No acute fracture or dislocation is seen. Osseous alignment is anatomic. Ankle mortise and other visualized joint spaces are preserved. Marked, diffuse subcutaneous soft tissue swelling is pre sent. Impression: No osseous or articular abnormality. Marked, diffuse subcutaneous soft tissue edema/swelling. Reviewed, dictated and finalized at location . COMPILER Impression: No osseous or articular abnormality. Marked, diffuse subcutaneous soft tissue edema/swelling.
== END ==
PROVIDERS: PCP Family Medicine; Visit Provider Family Medicine
DX: M25.472 Effusion, left ankle (principal)
CPT/HCPCS: 73610

== ENCOUNTER 2023-06-06 12:28 | Outpatient (CLI) | payer MEDICARE, SELFPAY ==
--- NOTE | 2023-06-06 13:13 | ECHO_ITS ---
Patient Info Name: Mariam Underwood Age: 88 years : 1935 Gender: Female Ht: 65 in Wt: 145 lbs BSA: 1.75 m2 HR: 63 bpm BP: 186 / 89 mmHg Heart Rhythm: Sinus Rhythm Technical Quality: Good Exam Date: 06/06/2023 1:21 PM Exam Location: Echo Lab Patient Status: Outpatient Admit Date: 06/06/2023 Staff Ordering Physician: Michael Lara MD Chemistry Technical Officer: Leyla Carlos RDCS Attending Provider: Michael Lara MD Exam Type: CA echo doppler color flow Study Info Indications - ESSENTIAL HYPERTENSION Complete two-dimensional, color flow and Doppler transthoracic echocardiogram is performed. Summary 1. Complete two-dimensional, color flow and Doppler transthoracic echocardiogram is performed. 2. Left ventricular chamber dimension is normal. 3. Left ventricular systolic function is normal, estimated at 60-65%. 4. The left ventricular diastolic function is grade I diastolic dysfunction. 5. E/e' 22 is elevated. 6. Left atrial chamber dimension is mildly enlarged. 7. There is mild aortic valve sclerosis. 8. There is mild to moderate aortic valve regurgitation. 9. The mitral valve has moderately calcified annulus. 10. There is trace mitral valve regurgitation. 11. There is trace tricuspid valve regurgitation. 12. No pulmonary hypertension, estimated pulmonary arterial systolic pressure is 17 mmHg. Left Ventricle E/e' 22 is elevated. Left ventricular chamber dimension is normal. Left ventricular systolic function is normal, estimated at 60-65%. The left ventricular diastolic function is grade I diastolic dysfunction. Right Ventricle Right ventricular systolic function is normal and with normal TAPSE 3.2 cm. Right ventricular chamber dimension is normal. Left Atria Left atrial chamber dimension is mildly enlarged. Right Atria Right atrial chamber dimension is normal. Aortic Valve The aortic valve is trileaflet. There is mild aortic valve sclerosis. There is no aortic valve stenosis. There is mild to moderate aortic valve regurgitation. Pulmonic Valve There is no pulmonic regurgitation. Mitral Valve The mitral valve has moderately calcified annulus. There is no mitral valve stenosis. There is trace mitral valve regurgitation. Tricuspid Valve There is trace tricuspid valve regurgitation. No pulmonary hypertension, estimated pulmonary arterial systolic pressure is 17 mmHg. Pericardium/Pleural There is no pericardial effusion. Inferior Vena Cava Normal inferior vena cava with >50% collapse upon inspiration consistent with normal right atrial pressure, 5 mmHg. Aorta The aortic root size at the sinus of Valsalva is normal. Left Ventricular Outflow Tract Name Value Normal LVOT 2D LVOT Diameter 1.9 cm LVOT Doppler LVOT Peak Gradient 5 mmHg LVOT Mean Gradient 3 mmHg LVOT VTI 27 cm LVOT VTI/AV VTI Ratio 0.7 LVOT Stroke Volume 73 ml LVOT CO 4.6 l/min LVOT CI 2.6 l/min/m2 Pulmonic Valve Nam
== END 2023-06-06 12:29 | disposition home or self-care (01) ==
LOC: ANHCARD 12:30
PROVIDERS: PCP Family Medicine; Visit Provider Family Medicine
DX: R93.1 Abnormal findings on diagnostic imaging of heart and coronary circulation (principal); I35.8 Other nonrheumatic aortic valve disorders; I35.1 Nonrheumatic aortic (valve) insufficiency; I34.0 Nonrheumatic mitral (valve) insufficiency; I34.81 Nonrheumatic mitral (valve) annulus calcification; I07.1 Rheumatic tricuspid insufficiency; R06.09 Other forms of dyspnea; I10 Essential (primary) hypertension
CPT/HCPCS: 93306

== ENCOUNTER 2023-07-14 08:13 | Inpatient (IN) | payer MEDICARE, SELFPAY ==
[2023-07-14] VITALS (15 sets, daily range): BP systolic 125–184; BP diastolic 61–75; PULSE 55–66; RESP 13–20; TEMP 36.6–37; O2SAT 94–98; BMI 24.3
--- NOTE | ~2023-07-14 | US_ITS ---
EXAMINATION:US venous doppler LE BI INDICATION:Leg edema TECHNIQUE: Multiple grayscale, color flow and Doppler images of the right and left lower extremity de ep venous systems were obtained and reviewed. COMPARISON:No prior studies for comparison. FINDINGS: The common femoral, superficial femoral and popliteal veins demonstrate normal respiratory variation, augmentation and compressibility. Color flow is also seen within the posterior tibial, pe roneal, greater saphenous and profunda veins. IMPRESSION: 1: No lower extremity deep venous thrombosis. Reviewed, dictated and finalized at location [facility]. [facility]
--- NOTE | ~2023-07-14 | XR_ITS ---
XR chest 1V portable 07/14/2023 08:56 Indication: Dyspnea. Weakness. Covid. Procedure: AP portable chest Comparison: Comparison to multiple prior studies sequentially, with oldest reviewed study dated 03/22. Findings: Borderline heart size. Mild pulmonary vascular congestion. Elevated right diaphragm. No foc al pneumonia, pleural effusion or pneumothorax. Impression: 1: Mild pulmonary vascular congestion. Reviewed, dictated and finalized at location L. ENT ACCOUNTS COORDINATOR Impression: 1: Mild pulmonary vascular congestion.
--- NOTE | ~2023-07-14 | CT_ITS ---
Clinical Indication: Shortness of breath CT Scan of the Chest with Contrast: Technique: Contiguous sections were acquired throughout the chest after intravenous administration of 100 cc of Omnipaque 350. Dose reduction technique was used on this scan by utilizing automated expos ure control and iterative reconstruction technique. The dose-length product (DLP) was 355.73 mGy-cm. COMPARISON: 03/04/2023 Findings: There is a 3.9 x 3.3 cm ovoid mass in the anterior mediastinum, similar to prior exam (axial image 11 1). No lymphadenopathy seen otherwise in the chest. There is no filling defect in the pulmonary arter ial tree to suggest pulmonary embolus. There is no evidence of aortic dissection or aneurysm. There is no evidence of pleural or pericardial effusion. There is mild patchy groundglass opacity. No suspicious pulmonary nodule seen. Images through the upper abdomen reveal no abnormalities. Impression: No evidence of pulmonary embolus, aortic dissection, or aortic aneurysm. Mild patchy groundglass opacity in the lungs. Findings could reflect Covid 19 infection, mild hypoven tilatory change, or possibly minimal pulmonary edema. Stable anterior mediastinal mass. This is stable dating back to 2020. Reviewed, dictated and finalized at [facility]. ING INSPECTOR Impression: No evidence of pulmonary embolus, aortic dissection, or aortic aneurysm. Mild patchy groundglass opacity in the lungs. Findings could reflect Covid 19 i nfection, mild hypoventilatory change, or possibly minimal pulmonary edema. Stable anterior mediastinal mass. This is stable dating back to 2020.
--- NOTE | 2023-07-14 08:22 | ECG_ITS ---
Measurements Intervals [place] Rate: 61 P: 16 CT: 212 QRS: -51 QRSD: 153 T: 65 QT: 440 QTc: 444 Interpretive Statements SINUS RHYTHM WITH FIRST DEGREE AV BLOCK LEFT AXIS DEVIATION LEFT BUNDLE BRANCH BLOCK BASELINE ARTIFACT- I, III, AVL, V4 ABNORMAL ECG COMPARED TO ECG 11/30/2022 07:48:45 FIRST DEGREE AV BLOCK NOW PRESENT Electronically Signed On 07-14-2023 8:36:14 SENIOR RUBY DEVELOPER by Chito Escudero D.O.
[2023-07-14 08:42] LABS: Basophils Percent Auto 0.4 % (0.2-1.2); Hematocrit 38.1 % (37.0-47.0); Hemoglobin 12.2 g/dL (12.0-15.0); Immature Granulocyte Absolute 0.02 K/mm3 (0.00-0.031); Immature Granulocyte Percent A 0.4 % (0-0.5); Lymphocytes Absolute Auto 0.77 K/mm3 (0.9-3.2); Lymphocytes Percent Auto 15.3 % (18.3-44.2); Mean Corpuscular Hemoglobin 31.1 pg (26-34); Mean Corpuscular Volume 97.2 fl (80-100); Mean Platelet Volume 10.6 fl (7.4-10.4); Monocytes Absolute Auto 0.9 K/mm3 (0.1-0.6); Monocytes Percent Auto 17.7 % (2.6-8.5); Neutrophils Absolute Auto 3.3 K/mm3 (1.3-6.7); Neutrophils Percent Auto 66.2 % (45.5-73.1); Platelet Count Result 202 k/mm3 (150-375); Red Blood Count 3.92 M/mm3 (4.2-5.4); Red Cell Distribution Width 12.7 % (11.5-14.5)
[2023-07-14 08:52] LABS: Alanine Aminotransferase 16 U/L (6-35); Albumin Level 3.9 g/dL (3.5-5.1); Alkaline Phosphatase 93 U/L (38-126); Anion Gap 8 mmol/L (8-16); Aspartate Amino Transferase 28 U/L (14-36); Bilirubin,Total 0.5 mg/dL (0.2-1.3); Blood Urea Nitrogen 13 mg/dL (7-17); Calcium 9.1 mg/dL (8.4-10.2); Carbon Dioxide 26 mmol/L (22-30); Chloride 102 mmol/L (98-107); Estimated CRCL calculation 51 ml/min; Estimated Glomerular Filt Rate > 60; Glucose 105 mg/dL (65-110); Potassium 3.7 mmol/L (3.4-5.0); Sodium 136 mmol/L (137-145)
--- NOTE | 2023-07-14 09:26 | ED.SOB ---
HPI - SOB/Dyspnea General Chief Complaint: Shortness of Breath/Dyspnea <Fabby Yanez PA-C - Last Filed: 07/14/23 15:09> Stated Complaint: SOB, COVID + <PARKER Babin Last Filed: 07/14/23 15:09> Time Seen by Provider: 07/14/23 09:08 <PARKER Babin Last Filed: 07/14/23 15:09> Source: patient <PARKER Babin Last Filed: 07/14/23 15:09> Mode of arrival: EMS <PARKER Babin Last Filed: 07/14/23 15:09> Limitations: dementia <PARKER Babin Last Filed: 07/14/23 15:09> History of Present Illness HPI Narrative: This is a 88 year old female that presents to the ER for generalized weakness. Reports she was diagnosed with COVID yesterday. She has had vomiting, cough, congestion, rhinorrhea, sore throat and dyspnea. She lives at an assisted living facility. Today she was unable to get off the couch. Reports exertional dyspnea as well as some discomfort in her jaw with this. Denies chest pain. <PARKER Babin Last Filed: 07/14/23 15:09> Related Data Home Medications: Home Medications Medication Instructions Recorded Confirmed aspirin 81 mg tablet,delayed 81 mg PO DAILY 05/10/20 07/14/23 release (Adult Aspirin Regimen) docusate sodium 100 mg capsule 100 mg PO DAILY 01/21/21 07/14/23 (Colace) brrtznzt-[id number]-[id number] acid 0.4 1 tablet PO DAILY 01/21/21 07/14/23 mg-lycopene 300 mcg-lutein 250 mcg tablet (Centrum Silver) mirabegron 50 mg tablet,extended 50 mg PO HS 07/22/21 07/14/23 release 24 hr loratadine 10 mg tablet (Claritin) 10 mg PO DAILY PRN Congestion 05/05/23 07/14/23 polyethylene glycol 3350 17 gram 17 g PO QAM PRN Constipation 05/25/23 07/14/23 oral powder packet (Miralax) <Fabby Yanez PA-C - Last Filed: 07/14/23 15:09> Allergies/Adverse Reactions: Allergies Allergy/AdvReac Type Severity Reaction Status Date / Time donepezil AdvReac Intermediate Swelling Verified 06/19/23 14:37 <Fabby Yanez PA-C - Last Filed: 07/14/23 15:09> Review of Systems Review of Systems: CONSTITUTIONAL: Denies fever ENT: Reports rhinorrhea, congestion, sore throat CARDIOVASCULAR: Denies chest pain, or edema. RESPIRATORY: Reports cough and dyspnea. GASTROINTESTINAL: Reports nausea, vomiting <Fabby Yanez PA-C - Last Filed: 07/14/23 15:09> All systems reviewed & are unremarkable except as noted in HPI and below <Fabby Yanez PA-C - Last Filed: 07/14/23 15:09> [facility] Past Medical History Medical History: Medical History (Updated 07/14/23 @ 15:36 by Ev Garcia PA-C) Anxiety Chronic lower back pain Chronic venous insufficiency of lower extremity Closed fracture of left proximal tibia (03/2023) Cognitive impairment Constipation Debility Degenerative disc disease, lumbar Depression Dyslipidemia Environmental allergies Essential (primary) hypertension Falls frequently Gait abnormality GERD without esophagitis Mass of right lung Multinodular goiter Osteoporosis Overactive bladder Pericardial mass Subcapital fracture of right hip (12/2019) Thoracic spine pain Transient ischemic attack <Fabby Yanez PA-C - Last Filed: 07/14/23 15:09> Surgical History Surgical History: Surgical History (Updated 07/14/23 @ 15:34 by Ev Garcia PA-C) History of hysterectomy (1980) History of open reduction and internal fixation (ORIF) procedure (12/2019) Repair of hip fracture. <Fabby Yanez PA-C - Last Filed: 07/14/23 15:09> Family History Family History: Family History Mother Breast cancer Unknown Hypertension Depression Cerebrovascular accident Arthritis <Fabby Yanez PA-C - Last Filed: 07/14/23 15:09> Social History Social History: Social History (Updated 07/14/23 @ 15:35 by Ev Garcia PA-C) Social History: Surrogate medical decision maker: Dillon Kj, son. Kesha s
[2023-07-14 09:49] LABS: NT Pro B Type Natriuretic Pept 1920 pg/mL (19.9-100)
[2023-07-14] MEDS: ACETAMINOPHEN 500 MG TABLET 1000 MG PO (09:50)
[2023-07-14 10:08] LABS: Partial Thromboplastin Time 29.8 SECONDS (22.3-36.8); Prothrombin Time 13.2 Seconds (11.1-14.7)
[2023-07-14 10:10] LABS: Troponin I 0.022 ng/mL (0.000-0.034)
[2023-07-14 12:39] LABS: D Dimer 1.21 ug/mL (<0.48)
[2023-07-14 12:41] LABS: Appearance Urine Clear (Clear); Bacteria Urine None Seen /hpf; Bilirubin Urine Negative (Negative); Blood Urine Negative (Negative); Color Urine Yellow (Yellow); Glucose Urine UA Negative (Negative); Ketones Urine Trace mg/dL (Negative); Leukocyte Esterase Ur Negative LEU/UL (Negative); Nitrate Urine Negative (Negative); Non Pathogenic Casts 0-2; Protein Urine Trace mg/dL (Negative); Specific Grav Ur 1.015 (1.001-1.035); Squamous Epithelial Cell Urine None seen /hpf (Few); Urobilinogen Urine 0.2 mg/dL (<2.0); WBC Urine 0-5 /hpf; pH Urine 6.5 (5.0-9.0)
[2023-07-14 12:56] LABS: Add Urine Microscopic? YES
--- NOTE | 2023-07-14 13:42 | ECG_ITS ---
Measurements Intervals [place] Rate: 70 P: 28 NV: 202 QRS: -44 QRSD: 154 T: 37 QT: 438 QTc: 473 Interpretive Statements SINUS RHYTHM LEFT AXIS DEVIATION BORDERLINE AV CONDUCTION DELAY LEFT BUNDLE BRANCH BLOCK BASELINE ARTIFACT- I, II, III, AVR, AVL, AVF, V1-V6 ABNORMAL ECG COMPARED TO ECG 07/14/2023 08:34:40 NO SIGNIFICANT CHANGES Electronically Signed On 07-15-2023 9:10:57 LAUNDRY AIDE by Chito Escudero D.O.
[2023-07-14 14:17] LABS: Troponin I 0.019 ng/mL (0.000-0.034)
[2023-07-14 14:53] LABS: Influenza A QL RT-PCR Negative (Negative); Influenza B QL RT-PCR Negative (Negative); SARS-CoV-2 RNA PCR Positive (Negative)
--- NOTE | 2023-07-14 15:29 | PM.IMHP ---
H&P: HPI History of Present Illness Date/Time: 07/14/23 17:00 Chief Complaint: Weakness and shortness of breath. Narrative: This is an 88-year-old female with hypertension, hyperlipidemia, gastroesophageal reflux disease, and overactive bladder presented to the emergency department for evaluation of weakness and shortness of breath. Patient provides the following history. She has not been feeling well for several days with generalized malaise, weakness, congestion sore throat, nonproductive cough, sweats, and shortness of breath. Today she was feeling so weak that she could hardly even get herself up off of the couch. She has apparently been exposed to COVID and tested positive for the same in the ED. while in the ED she complained of exertional dyspnea and discomfort in the left side of her jaw prompting an ischemic workup. EKG showed a sinus rhythm with left axis deviation left bundle branch block which have been noted on prior tracings. She has been afebrile since arrival with stable blood pressures. SpO2 has been in the mid 90s on room air. Labs were pretty unremarkable aside from a D-dimer 1.21, proBNP 1920, troponin 0.022. CT of the chest showed no evidence of PE but did note mild patchy ground-glass opacities in the lungs and a stable anterior mediastinal mass. She is being admitted in this setting for close monitoring. At the time my evaluation she is not having any chest pain, shortness of breath, or jaw pain. She denies syncope, near syncope, pleuritic pain, lower extremity edema, and calf pain. Her main complaint is that of body aches and sweats. Review of Systems Review of Systems: Twelve systems were reviewed and are negative except for as per HPI. [facility] Past Medical History Medical History (Updated 07/15/23 @ 00:09 by Ev Garcia PA-C) Anxiety Chronic lower back pain Chronic venous insufficiency of lower extremity Closed fracture of left proximal tibia (03/2023) Cognitive impairment Constipation Debility Degenerative disc disease, lumbar Depression Diastolic dysfunction Dyslipidemia Environmental allergies Essential (primary) hypertension Falls frequently Gait abnormality GERD without esophagitis Mass of right lung Multinodular goiter Osteoporosis Overactive bladder Pericardial mass Subcapital fracture of right hip (12/2019) Thoracic spine pain Transient ischemic attack Surgical History Surgical History History of hysterectomy (1980) History of open reduction and internal fixation (ORIF) procedure (12/2019) Repair of hip fracture. Family History Family History Mother Breast cancer Unknown Hypertension Depression Cerebrovascular accident Arthritis Social History Social History Social History: Surrogate medical decision maker: Dillon Underwood, son. Code status: Full code. Smoking status: Never smoker Second hand tobacco smoke exposure: No Alcohol intake: never Substance use: never Substance use type: does not use Do You Feel Safe in your Home?: Yes Lack of Transportation: No Lack of Food: Never True Current Housing: I Have Housing Concerned About Future Housing: No Difficulty Paying Gas/Electric Bills: No Difficulty Paying for Meds: No Currently Unemployed: No Education: High School Diploma/GED Difficulty w/ Childcare or Family Care: No Living arrangements: alone Additional living arrangements comments: Assisted living at [facility] in [place]. Occupation/Education: retired Spiritual care concerns: No Agree to blood products: Yes Meds Home Medications and Allergies Home Medications Medication Instructions Recorded Confirmed Type aspirin 81 mg tablet,delayed 81 mg PO DAILY 05/10/20 07/14/23 History release (Adult Aspirin Regimen) docusate sodium 100 mg c
--- NOTE | 2023-07-14 15:37 | ECHO_ITS ---
Patient Info Name: Mariam Underwood Age: 88 years : 1935 Gender: Female Ht: 65 in Wt: 154 lbs BSA: 1.80 m2 HR: 65 bpm BP: 157 / 67 mmHg Heart Rhythm: Sinus Rhythm Technical Quality: Good Exam Date: 07/14/2023 4:03 PM Exam Location: Echo Lab Patient Status: Inpatient Admit Date: 07/14/2023 Staff Ordering Physician: Ev Garcia PA-C Interior Mechanic: Leyla Carlos RDCS Attending Provider: Primitivo Amezcua MD Referring Physician: Jose ELIAS; Exam Type: CA echo doppler color flow Study Info Indications - chest pain , pulmonary edema Complete two-dimensional, color flow and Doppler transthoracic echocardiogram is performed. Summary 1. Complete two-dimensional, color flow and Doppler transthoracic echocardiogram is performed. 2. Left ventricular chamber dimension is normal. 3. Left ventricular systolic function is normal, estimated at 60-65%. 4. There is moderately increased left ventricular wall thickness. 5. The left ventricular diastolic function is grade I diastolic dysfunction. 6. Left atrial chamber dimension is mildly enlarged. 7. There is mild to moderate aortic valve regurgitation. 8. There is mild mitral valve regurgitation. 9. The mitral valve has calcified annulus. 10. There is mild tricuspid valve regurgitation. 11. Mild pulmonary hypertension, estimated pulmonary arterial systolic pressure is 43 mmHg. Left Ventricle Left ventricular chamber dimension is normal. Left ventricular systolic function is normal, estimated at 60-65%. There is moderately increased left ventricular wall thickness. The left ventricular diastolic function is grade I diastolic dysfunction. Right Ventricle Right ventricular chamber dimension is normal. Right ventricular systolic function is normal. Left Atria Left atrial chamber dimension is mildly enlarged. Right Atria Right atrial chamber dimension is normal. Atrial Septum Intact interatrial septum visualized by color flow imaging. Aortic Valve The aortic valve is trileaflet. There is mild aortic valve sclerosis. There is no aortic valve stenosis. There is mild to moderate aortic valve regurgitation. Pulmonic Valve The pulmonic valve is normal. There is no pulmonic valve stenosis. There is trace pulmonic regurgitation. Mitral Valve The mitral valve has calcified annulus. There is no mitral valve stenosis. There is mild mitral valve regurgitation. Tricuspid Valve The tricuspid valve leaflets are normal. There is no significant tricuspid valve stenosis. There is mild tricuspid valve regurgitation. Mild pulmonary hypertension, estimated pulmonary arterial systolic pressure is 43 mmHg. Pericardium/Pleural The pericardium appears epicardial fat pad. There is trivial pericardial effusion. Inferior Vena Cava Normal inferior vena cava with >50% collapse upon inspiration consistent with normal right atrial pressure, 10 mmHg. Aorta The aortic root size at the sinus of Valsalva is normal. Left Ventricular Outflow Tract Name Value Normal LVOT 2D LVOT Diameter 2.1 cm LVOT Doppler LVOT Peak Gradient 5 mmHg LVOT Mean Gradient 3 mmHg LVOT VTI
--- NOTE | 2023-07-14 15:37 | ADMGEN ---
This patient, Mariam Underwood, was admitted to IMU Room 202-01. Patient/family oriented to hospital policies and general routines including ID bracelet, bed and alarms, visiting hours, pain management, procedures, bathroom and other care routines, personal items, smoking policy, room service/diet, and visiting hours. Information on how to activate the Rapid Response Team has been discussed. Patient/Family are encouraged to report perceived risks to care and to ask questions if they do not understand what they are told or what they should do.
[2023-07-14] MEDS: FUROSEMIDE INJ 40 MG/4 ML VIAL 20 MG IV PUSH (16:44)
[2023-07-14] MEDS: REMDESIVIR 200 MG/NS 250 ML 200 MG/250 ML BAG 250 MG IVPB (16:45)
[2023-07-14 17:32] LABS: Troponin I 0.018 ng/mL (0.000-0.034)
[2023-07-15] VITALS (19 sets, daily range): BP systolic 165–197; BP diastolic 67–83; PULSE 57–78; RESP 18–20; TEMP 36.1–37; O2SAT 92–100
[2023-07-15 05:12] LABS: Hematocrit 41.7 % (37.0-47.0); Hemoglobin 13.4 g/dL (12.0-15.0); Mean Corpuscular HGB Conc 32.1 g/dl (32-36); Mean Corpuscular Hemoglobin 30.6 pg (26-34); Mean Corpuscular Volume 95.2 fl (80-100); Mean Platelet Volume 10.8 fl (7.4-10.4); Platelet Count Result 196 k/mm3 (150-375); Red Blood Count 4.38 M/mm3 (4.2-5.4); Red Cell Distribution Width 12.3 % (11.5-14.5); White Blood Count 4.6 K/mm3 (4.5-10.0)
[2023-07-15 05:22] LABS: Anion Gap 10 mmol/L (8-16); Blood Urea Nitrogen 15 mg/dL (7-17); CRP 4.4 mg/dL (<1.0); Calcium 8.5 mg/dL (8.4-10.2); Carbon Dioxide 25 mmol/L (22-30); Chloride 102 mmol/L (98-107); Estimated CRCL calculation 51 ml/min; Estimated Glomerular Filt Rate > 60; Glucose 90 mg/dL (65-110); Lactate Dehydrogenase 194 U/L (120-246); Magnesium 2.1 mg/dL (1.6-2.3); Potassium 3.4 mmol/L (3.4-5.0); Sodium 137 mmol/L (137-145)
[2023-07-15] MEDS: ENOXAPARIN 40 MG/0.4 ML SYRINGE SUB-Q (09:17)
[2023-07-15] MEDS: lisinopriL 10 MG TABLET 30 MG PO (15:06)
[2023-07-15] MEDS: ACETAMINOPHEN 500 MG TABLET PO (15:06)
[2023-07-15] MEDS: amLODIPine BESYLATE 5 MG TABLET 10 MG PO (15:07)
[2023-07-15] MEDS: ASPIRIN 81 MG ENTERIC TABLET PO (15:07)
[2023-07-15] MEDS: METOPROLOL SUCCINATE EXT REL 25 MG TABCR PO (15:07)
[2023-07-15] MEDS: MULTIVITAMINS /C LUTEIN (CENTRUM SILVER) TABLET *BKC 1 TAB PO (15:08)
[2023-07-15] MEDS: DOCUSATE SODIUM 100 MG CAPSULE PO (15:08)
[2023-07-15] MEDS: SERTRALINE HCL 50 MG TABLET PO (15:08)
[2023-07-15] MEDS: POTASSIUM CHLORIDE 20 MEQ ER TABLET PO (15:08)
[2023-07-15] MEDS: MELOXICAM 7.5 MG TABLET 15 MG PO (15:08)
--- NOTE | 2023-07-15 17:23 | PM.IMPN ---
Progress Note: A&P Assessment and Plan (1) Pneumonia due to COVID-19 virus: Code(s): U07.1 - COVID-19; J12.82 - Pneumonia due to coronavirus disease 2019 Status: Acute (2) Chest pain: Code(s): R07.9 - Chest pain, unspecified Status: Acute (3) Weakness: Code(s): R53.1 - Weakness Status: Acute (4) Essential (primary) hypertension: Code(s): I10 - Essential (primary) hypertension Status: Acute (5) Diastolic dysfunction: Code(s): I51.89 - Other ill-defined heart diseases Status: Acute Plan The patient presented to the emergency department for evaluation of weakness and shortness of breath as detailed in HPI. Labs, imaging, EKG, and all reports were personally reviewed. She has not been feeling well for several days and was exposed to COVID and her COVID test was positive today. She has been started on remdesivir she is at increased risk for adverse outcome. She has no oxygen requirement thus no indication for dexamethasone. Chest CT showed evidence of pneumonia which is likely viral thus no indication for antibiotics at this time. Chest imaging also showed possible pulmonary edema for which she was given a dose of furosemide in the ED. She has mild swelling in her legs thus an echocardiogram has been ordered. Hold on further diuretics for now to see how she responds. She has lower extremity edema in with an elevated D-dimer, lower extremity venous Doppler ultrasounds have been ordered to rule out DVT. Her blood pressures were reviewed and they have been stable. Her home medications will be reviewed and resumed as appropriate. Pt much improved asymptomatic but is weak to ambulate move to medical floor, more physical theraphy then dc back to facility soon Subjective Date/time seen: 07/15/23 17:23 Interval history: 88-year-old female with hypertension, hyperlipidemia, gastroesophageal reflux disease, and overactive bladder presented to the emergency department for evaluation of weakness and shortness of breath. Patient provides the following history. She has not been feeling well for several days with generalized malaise, weakness, congestion sore throat, nonproductive cough, sweats, and shortness of breath. Today she was feeling so weak that she could hardly even get herself up off of the couch. She has apparently been exposed to COVID and tested positive for the same in the ED. while in the ED she complained of exertional dyspnea and discomfort in the left side of her jaw prompting an ischemic workup. EKG showed a sinus rhythm with left axis deviation left bundle branch block which have been noted on prior tracings.? Pt denies any respiratory symptoms, weak to ambulate sitting in chair today. DC to medical floor continue with therapy and Dc in 1-2 days time back to the facility Review of Systems Review of Systems: asymptomatic but weak to ambulate Exam Narrative: General: Mildly ill-appearing elderly female in the semi-Mo position in bed. Weight: 66.4 kg. BMI: 24.4. HEENT: PERRL, EOMI. Sclera anicteric. Tacky mucous membranes. Neck: Supple. Respiratory: Respirations are nonlabored. Fine crackles heard at the bases. Cardiovascular: Regular rate and rhythm with S1-S2. Gastrointestinal: Abdomen is soft, nontender, and nondistended with positive bowel sounds. Skin: Warm and dry. No rash or lesions on limited exam. Extremities: No cyanosis or clubbing. Trace daphne ankle edema, left greater than right. No palpable knots or cords. Equivocal Homans sign bilaterally. Radial and pedal pulses intact. Neurological: Alert. Cranial nerves 2-12 are grossly intact. No gross focal deficits to casual conversation. Psychiatric: Pleasant and cooperative with appropriate mood and affect. Objective Data Vital Signs Vital Signs: Vital Signs - 24 hr 07/14/23 18:00 07/14/23 20:00 07/14/23 20:00 Temperature 36.6 C Pulse Rate 58 L 61 61 Respiratory Rate 18 18 Blood
[2023-07-15] MEDS: FAMOTIDINE 20 MG TABLET PO (21:40)
[2023-07-15] MEDS: ATORVASTATIN 20 MG TABLET PO (21:40)
[2023-07-15] MEDS: MIRABEGRON 50 MG ER TABLET PO (21:41)
[2023-07-15] MEDS: REMDESIVIR 100 MG/NS 250 ML 100 MG/250 ML BAG 250 MG IVPB (23:20)
[2023-07-16] VITALS (11 sets, daily range): BP systolic 150–178; BP diastolic 63–75; PULSE 55–68; RESP 16–20; TEMP 35.9–36.8; O2SAT 94–99
[2023-07-16] MEDS: hydrALAZINE HCL 20 MG/ML VIAL IV PUSH (05:35)
[2023-07-16 07:50] LABS: Potassium 3.7 mmol/L (3.4-5.0)
[2023-07-16 08:30] LABS: Alanine Aminotransferase 18 U/L (6-35); Albumin Level 3.7 g/dL (3.5-5.1); Alkaline Phosphatase 89 U/L (38-126); Aspartate Amino Transferase 36 U/L (14-36); Bilirubin,Total 0.3 mg/dL (0.2-1.3)
[2023-07-16] MEDS: POTASSIUM CHLORIDE 20 MEQ ER TABLET PO (09:37)
[2023-07-16] MEDS: DOCUSATE SODIUM 100 MG CAPSULE PO (09:37)
[2023-07-16] MEDS: SERTRALINE HCL 50 MG TABLET PO (09:37)
[2023-07-16] MEDS: ASPIRIN 81 MG ENTERIC TABLET PO (09:37)
[2023-07-16] MEDS: lisinopriL 10 MG TABLET 30 MG PO (09:37)
[2023-07-16] MEDS: MELOXICAM 7.5 MG TABLET 15 MG PO (09:37)
[2023-07-16] MEDS: METOPROLOL SUCCINATE EXT REL 25 MG TABCR PO (09:37)
[2023-07-16] MEDS: amLODIPine BESYLATE 5 MG TABLET 10 MG PO (09:37)
[2023-07-16] MEDS: MULTIVITAMINS /C LUTEIN (CENTRUM SILVER) TABLET *BKC 1 TAB PO (09:37)
[2023-07-16] MEDS: ENOXAPARIN 40 MG/0.4 ML SYRINGE SUB-Q (09:38)
[2023-07-16] MEDS: FUROSEMIDE 40 MG TABLET PO (17:44)
--- NOTE | 2023-07-16 18:17 | PC.NURSE ---
This patient, Mariam Underwood, was received from [IMU 202 ] on 07/16/23 at 1815. Patient/family oriented to unit policies and routines. report from sven
--- NOTE | 2023-07-16 18:22 | PC.NURSE ---
This patient, Mariam Underwood, was transferred to [3rd med surg ] on 07/16/23 at 1822. Personal belongings sent with patient. Report given to [AMINA Jackson ]. Appropriate documentation sent with patient. Patient alert and oriented to baseline, intermittent confusion. Daughter states this is normal for patient. Family updated on patients relocation.
[2023-07-16] MEDS: ATORVASTATIN 20 MG TABLET PO (20:59)
[2023-07-16] MEDS: MIRABEGRON 50 MG ER TABLET PO (20:59)
[2023-07-16] MEDS: FAMOTIDINE 20 MG TABLET PO (20:59)
[2023-07-17 06:00] VITALS: BP 158/86; PULSE 57; RESP 18; TEMP 36.6; O2SAT 96
[2023-07-17 07:05] LABS: Anion Gap 8 mmol/L (8-16); Blood Urea Nitrogen 28 mg/dL (7-17); Calcium 8.9 mg/dL (8.4-10.2); Carbon Dioxide 26 mmol/L (22-30); Chloride 103 mmol/L (98-107); Estimated CRCL calculation 39 ml/min; Estimated Glomerular Filt Rate > 60; Glucose 104 mg/dL (65-110); Potassium 3.8 mmol/L (3.4-5.0); Sodium 137 mmol/L (137-145)
[2023-07-17 07:11] LABS: NT Pro B Type Natriuretic Pept 281 pg/mL (19.9-100)
[2023-07-17] MEDS: ASPIRIN 81 MG ENTERIC TABLET PO (08:38)
[2023-07-17] MEDS: ENOXAPARIN 40 MG/0.4 ML SYRINGE SUB-Q (08:38)
[2023-07-17] MEDS: MULTIVITAMINS /C LUTEIN (CENTRUM SILVER) TABLET *BKC 1 TAB PO (08:38)
[2023-07-17] MEDS: lisinopriL 10 MG TABLET 30 MG PO (08:38)
[2023-07-17] MEDS: amLODIPine BESYLATE 5 MG TABLET 10 MG PO (08:38)
[2023-07-17] MEDS: FUROSEMIDE 40 MG TABLET PO (08:38)
[2023-07-17] MEDS: DOCUSATE SODIUM 100 MG CAPSULE PO (08:39)
[2023-07-17] MEDS: METOPROLOL SUCCINATE EXT REL 25 MG TABCR PO (08:39)
[2023-07-17] MEDS: SERTRALINE HCL 50 MG TABLET PO (08:39)
[2023-07-17] MEDS: MELOXICAM 7.5 MG TABLET 15 MG PO (08:50)
[2023-07-17] MEDS: POTASSIUM CHLORIDE 20 MEQ ER TABLET PO (08:51)
[2023-07-17 14:00] VITALS: BP 98/52; PULSE 58; RESP 16; TEMP 36.7; O2SAT 99
--- NOTE | 2023-07-17 14:11 | PM.IMPN ---
Progress Note: A&P Assessment and Plan (1) Pneumonia due to COVID-19 virus: Code(s): U07.1 - COVID-19; J12.82 - Pneumonia due to coronavirus disease 2019 Status: Acute (2) Chest pain: Code(s): R07.9 - Chest pain, unspecified Status: Acute (3) Weakness: Code(s): R53.1 - Weakness Status: Acute (4) Essential (primary) hypertension: Code(s): I10 - Essential (primary) hypertension Status: Acute (5) Diastolic dysfunction: Code(s): I51.89 - Other ill-defined heart diseases Status: Acute Plan 88-year-old female with hypertension, hyperlipidemia, gastroesophageal reflux disease, and overactive bladder presented to the emergency department for evaluation of weakness and shortness of breath. Patient provides the following history. She has not been feeling well for several days with generalized malaise, weakness, congestion sore throat, nonproductive cough, sweats, and shortness of breath. Today she was feeling so weak that she could hardly even get herself up off of the couch. She has apparently been exposed to COVID and tested positive for the same in the ED. while in the ED she complained of exertional dyspnea and discomfort in the left side of her jaw prompting an ischemic workup. EKG showed a sinus rhythm with left axis deviation left bundle branch block which have been noted on prior tracings.? Troponin serial negative. Remains on room air. Labs unremarkable. Remains on of confused PT OT evaluation pending. CT chest showed evidence pneumonia. Which likely is COVID related. WBC count remained normal. Chest imaging also showed possible pulmonary edema for which she received a dose of furosemide in the ER. CT also showed stable anterior mediastinal mass which is stable dating back to 2020. Venous duplex is negative for any DVT. Echo with EF 60-65%. PT OT weighted and back to nursing facility Subjective Date/time seen: 07/17/23 14:11 Interval history: 88-year-old female with hypertension, hyperlipidemia, gastroesophageal reflux disease, and overactive bladder presented to the emergency department for evaluation of weakness and shortness of breath. Patient provides the following history. She has not been feeling well for several days with generalized malaise, weakness, congestion sore throat, nonproductive cough, sweats, and shortness of breath. Today she was feeling so weak that she could hardly even get herself up off of the couch. She has apparently been exposed to COVID and tested positive for the same in the ED. while in the ED she complained of exertional dyspnea and discomfort in the left side of her jaw prompting an ischemic workup. EKG showed a sinus rhythm with left axis deviation left bundle branch block which have been noted on prior tracings.? Troponin serial negative. Remains on room air. Labs unremarkable. Remains on of confused PT OT evaluation pending Review of Systems Review of Systems: All systems reviewed & are unremarkable except as noted in HPI and below Exam Narrative: General: Mildly ill-appearing elderly female in the semi-Mo position in bed. HEENT: PERRL, EOMI. Sclera anicteric. Tacky mucous membranes. Neck: Supple. Respiratory: Respirations are nonlabored. Fine crackles heard at the bases. Coarse breath sounds Cardiovascular: Regular rate and rhythm with S1-S2. Gastrointestinal: Abdomen is soft, nontender, and nondistended with positive bowel sounds. Skin: Warm and dry. No rash or lesions on limited exam. Extremities: No cyanosis or clubbing. Trace daphne ankle edema, left greater than right. No palpable knots or cords. Equivocal Homans sign bilaterally. Radial and pedal pulses intact. Neurological: Alert. Cranial nerves 2-12 are grossly intact. No gross focal deficits to casual conversation. Psychiatric: Pleasant and cooperative with appropriate mood and affect. Objective Data Vital Signs Vital Signs: Vital Signs - 24 hr 07/16/23
[2023-07-17 17:00] VITALS: BP 147/50
[2023-07-17 20:00] VITALS: O2SAT 99
[2023-07-17] MEDS: MIRABEGRON 50 MG ER TABLET PO (20:07)
[2023-07-17] MEDS: FAMOTIDINE 20 MG TABLET PO (20:07)
[2023-07-17] MEDS: ATORVASTATIN 20 MG TABLET PO (20:07)
[2023-07-17] MEDS: ACETAMINOPHEN 500 MG TABLET PO (20:07)
[2023-07-17 22:00] VITALS: BP 144/69; PULSE 56; RESP 18; TEMP 36.1; O2SAT 96
[2023-07-18 06:00] VITALS: BP 163/76; PULSE 68; RESP 16; TEMP 36.6; O2SAT 94
[2023-07-18 06:18] LABS: Basophils Percent Auto 0.7 % (0.2-1.2); Eosinophils Absolute Auto 0.1 K/mm3 (0-0.3); Hematocrit 38.9 % (37.0-47.0); Hemoglobin 12.7 g/dL (12.0-15.0); Lymphocytes Absolute Auto 1.08 K/mm3 (0.9-3.2); Lymphocytes Percent Auto 36.4 % (18.3-44.2); Mean Corpuscular HGB Conc 32.6 g/dl (32-36); Mean Corpuscular Hemoglobin 31.1 pg (26-34); Mean Corpuscular Volume 95.1 fl (80-100); Mean Platelet Volume 10.7 fl (7.4-10.4); Monocytes Absolute Auto 0.4 K/mm3 (0.1-0.6); Monocytes Percent Auto 14.1 % (2.6-8.5); Neutrophils Absolute Auto 1.3 K/mm3 (1.3-6.7); Neutrophils Percent Auto 44.8 % (45.5-73.1); Platelet Count Result 211 k/mm3 (150-375); Red Blood Count 4.09 M/mm3 (4.2-5.4); Red Cell Distribution Width 12.4 % (11.5-14.5)
[2023-07-18 06:32] LABS: Alanine Aminotransferase 16 U/L (6-35); Albumin Level 3.5 g/dL (3.5-5.1); Alkaline Phosphatase 81 U/L (38-126); Anion Gap 6 mmol/L (8-16); Aspartate Amino Transferase 35 U/L (14-36); Bilirubin,Total 0.5 mg/dL (0.2-1.3); Blood Urea Nitrogen 29 mg/dL (7-17); Calcium 8.8 mg/dL (8.4-10.2); Carbon Dioxide 29 mmol/L (22-30); Chloride 103 mmol/L (98-107); Estimated CRCL calculation 35 ml/min; Estimated Glomerular Filt Rate 59; Glucose 99 mg/dL (65-110); Magnesium 2.2 mg/dL (1.6-2.3); Potassium 4.1 mmol/L (3.4-5.0); Sodium 138 mmol/L (137-145)
[2023-07-18] MEDS: ENOXAPARIN 40 MG/0.4 ML SYRINGE SUB-Q (08:48)
[2023-07-18] MEDS: METOPROLOL SUCCINATE EXT REL 25 MG TABCR PO (08:48)
[2023-07-18] MEDS: MELOXICAM 7.5 MG TABLET 15 MG PO (08:49)
[2023-07-18] MEDS: ASPIRIN 81 MG ENTERIC TABLET PO (08:49)
[2023-07-18] MEDS: amLODIPine BESYLATE 5 MG TABLET 10 MG PO (08:49)
[2023-07-18] MEDS: POTASSIUM CHLORIDE 20 MEQ ER TABLET PO (08:49)
[2023-07-18] MEDS: SERTRALINE HCL 50 MG TABLET PO (08:49)
[2023-07-18] MEDS: DOCUSATE SODIUM 100 MG CAPSULE PO (08:49)
[2023-07-18] MEDS: lisinopriL 10 MG TABLET 30 MG PO (08:49)
[2023-07-18] MEDS: MULTIVITAMINS /C LUTEIN (CENTRUM SILVER) TABLET *BKC 1 TAB PO (08:49)
[2023-07-18] MEDS: ACETAMINOPHEN 500 MG TABLET PO (12:15)
--- NOTE | 2023-07-18 13:18 | PM.DS ---
DS: Admitting Diagnosis Discharge Date 07/18/2023 Admitting Diagnosis Generalized weakness DS: Discharge Diagnosis Discharge Diagnosis (1) Pneumonia due to COVID-19 virus: Code(s): U07.1 - COVID-19; J12.82 - Pneumonia due to coronavirus disease 2018 Status: Acute (2) Chest pain: Code(s): R07.9 - Chest pain, unspecified Status: Acute (3) Weakness: Code(s): R53.1 - Weakness Status: Acute (4) Essential (primary) hypertension: Code(s): I10 - Essential (primary) hypertension Status: Acute (5) Diastolic dysfunction: Code(s): I51.89 - Other ill-defined heart diseases Status: Acute DS: Summary Hospital Course Hospital Course: 88-year-old female with hypertension, hyperlipidemia, gastroesophageal reflux disease, and overactive bladder presented to the emergency department for evaluation of weakness and shortness of breath. Patient provides the following history. She has not been feeling well for several days with generalized malaise, weakness, congestion sore throat, nonproductive cough, sweats, and shortness of breath. Today she was feeling so weak that she could hardly even get herself up off of the couch. She has apparently been exposed to COVID and tested positive for the same in the ED. while in the ED she complained of exertional dyspnea and discomfort in the left side of her jaw prompting an ischemic workup. EKG showed a sinus rhythm with left axis deviation left bundle branch block which have been noted on prior tracings.? Troponin serial negative.? Remains on room air.? Labs unremarkable.? Remains on and off confused PT OT evaluation performed. CT chest showed evidence pneumonia.? Which likely is COVID related.? WBC count remained normal.? Chest imaging also showed possible pulmonary edema for which she received a dose of furosemide in the ER.? CT also showed stable anterior mediastinal mass which is stable dating back to 2020.? Venous duplex is negative for any DVT.? Echo with EF 60-65%.? PT OT evaluated and will be back to nursing facility Time Spent with Patient Time attestation: Total time spent providing and/or coordinating discharge services: 35 minute Exam Narrative: General: Mildly ill-appearing elderly female in the semi-Mo position in bed. HEENT: PERRL, EOMI. Sclera anicteric. Tacky mucous membranes. Neck: Supple. Respiratory: Respirations are nonlabored. Fine crackles heard at the bases. Coarse breath sounds Cardiovascular: Regular rate and rhythm with S1-S2. Gastrointestinal: Abdomen is soft, nontender, and nondistended with positive bowel sounds. Skin: Warm and dry. No rash or lesions on limited exam. Extremities: No cyanosis or clubbing. Trace daphne ankle edema, left greater than right. No palpable knots or cords. Equivocal Homans sign bilaterally. Radial and pedal pulses intact. Neurological: Alert. Cranial nerves 2-12 are grossly intact. No gross focal deficits to casual conversation. Psychiatric: Pleasant and cooperative with appropriate mood and affect. DS: Data Data Completed and Pending Completed studies during hospitalization: Exam Type: ? ? CA echo doppler color flow Study Info Indications ?? ? - chest pain , pulmonary edema Complete two-dimensional, color flow and Doppler transthoracic echocardiogram is performed. Account #: ? ? [id number] Summary ? 1. Complete two-dimensional, color flow and Doppler transthoracic echocardiogram is performed. ? 2. Left ventricular chamber dimension is normal. ? 3. Left ventricular systolic function is normal, estimated at 60-65%. ? 4. There is moderately increased left ventricular wall thickness. ? 5. The left ventricular diastolic function is grade I diastolic dysfunction. ? 6. Left atrial chamber dimension is mildly enlarged. ? 7. There is mild to moderate aortic valve regurgitation. ? 8. There is mild mitral valve regurgitation. ? 9. The mitral valve has calcified annulus. ? 10. T
[2023-07-18 14:00] VITALS: BP 123/58; PULSE 56; RESP 18; TEMP 36.3; O2SAT 98
== END 2023-07-18 15:40 | DRG 177 ==
LOC: ANHED 09:45 → ANHIMU 14:47 → ANH3MEDSUR 07-16 18:10
PROVIDERS: Emergency Medicine; Family Medicine; Physician Assistant; Admitting Provider Internal Medicine; Emergency Provider Physician Assistant; PCP Family Medicine; Visit Provider Internal Medicine
DX: U07.1 COVID-19 (principal); J12.82 Pneumonia due to coronavirus disease 2019; E78.5 Hyperlipidemia, unspecified; F32.A Depression, unspecified; I11.9 Hypertensive heart disease without heart failure; K21.9 Gastro-esophageal reflux disease without esophagitis; N32.81 Overactive bladder; Z86.73 Personal history of transient ischemic attack (TIA), and cerebral infarction without residual deficits; Z90.710 Acquired absence of both cervix and uterus; Z79.82 Long term (current) use of aspirin
CPT/HCPCS: 36415; 71045; 71275; 80048; 80053; 80076; 81001; 82728; 83615; 83735; 83880; 84132; 84484; 85025; 85027; 85380; 85610; 85730; 86140; 87636; 93005; 93306; 93970; 96365; 96372; 96375; 97161; 97165; 97530; 99285; A9270; G0378; J0248; J0360; J1650; J1940; Q9967

== ENCOUNTER 2023-08-19 04:24 | Emergency (ER) | payer MEDICARE, SELFPAY ==
--- NOTE | ~2023-08-19 | XR_ITS ---
Left wrist Technique: PA, oblique, lateral, and ulnar deviation views were obtained. Clinical History: Pain Findings: No acute fracture or dislocation is seen. Osseous alignment is anatomic. Joint spaces are p reserved. Soft tissues are unremarkable. Impression: Unremarkable left wrist radiographs. Reviewed, dictated and finalized at location . ITUAL ADVISOR Impression: Unremarkable left wrist radiographs.
--- NOTE | ~2023-08-19 | XR_ITS ---
Left elbow Technique: AP, oblique, and lateral views were obtained. Clinical History: Pain Findings: No acute fracture or dislocation is seen. Osseous alignment is anatomic. Joint spaces are p reserved. There is no displacement of the fat pads, and soft tissues are unremarkable. Impression: Unremarkable radiographs. Reviewed, dictated and finalized at location . EM ANALYST Impression: Unremarkable radiographs.
--- NOTE | ~2023-08-19 | CT_ITS ---
CT head without contrast Indication: Head injury COMPARISON: 04/01/2023 Technique: Serial scans were obtained through the brain without the administration of contrast. Dose reduction technique was used on this scan by utilizing automated exposure control and iterative recon struction technique. The dose-length product (DLP) was 605.33 mGy-cm. Findings: There is no evidence of intracranial hemorrhage, mass lesion, or acute infarct. The ventri cles and subarachnoid spaces are dilated, consistent with mild atrophy. Low attenuation regions are seen within the periventricular white matter bilaterally, likely representing changes from chronic mi crovascular ischemic disease. There is no evidence of edema, mass effect or midline shift. The visu alized paranasal sinuses and mastoid air cells are clear. Impression: No intracranial hemorrhage, mass, or acute infarct. Atrophy and chronic white matter changes, as above. Reviewed, dictated and finalized at [facility]. ILLER Impression: No intracranial hemorrhage, mass, or acute infarct. Atrophy and chronic white matter changes, as above.
--- NOTE | ~2023-08-19 | CT_ITS ---
Noncontrast CT scan of the cervical spine Technique: Multiple contiguous axial [address] images of the cervical spine were obtained and rec onstructed in 2D sagittal and coronal planes on the acquisition scanner. Dose reduction technique was used on this scan by utilizing automated exposure control, adjustment of the mA and/or kV according to patient size. The dose-length product (DLP) was 230.18 mGy-cm. Clinical History: Pain Findings: No fracture identified. There is minimal grade 1 anterolisthesis of C4 over C5. There is se ivonne degenerative disc narrowing at C5-C6 and C6-C7. There is fusion of the bilateral C2-C3 facet kellie nts. There is multilevel bilateral moderate to advanced facet arthropathy. There is probable mild lef t neural foraminal narrowing at C3-C4. Probable mild bilateral neural foraminal narrowing at C4-C5. T here is bilateral neural foraminal narrowing at C5-C6 and probably C6-C7. No prevertebral soft tissue swelling. Impression: No acute fracture. Minimal grade 1 anterolisthesis of C4 over C5. Degenerative change, as above. Reviewed, dictated and finalized at location . ER MEAT Impression: No acute fracture. Minimal grade 1 anterolisthesis of C4 over C5. Degenerative change, as above.
[2023-08-19 04:24] VITALS: BP 210/99; PULSE 66; RESP 19; TEMP 36.1; O2SAT 97
--- NOTE | 2023-08-19 04:42 | ED.GENADULT ---
HPI - General Adult General Chief complaint: Fall Stated complaint: fall, skin tear, hit head Time Seen by Provider: 08/19/23 04:29 History of Present Illness HPI narrative: Patient 88-year-old female who presents emergency department with chief complaint of fall. Patient reports that she was going to the bathroom sat down on the toilet and slid off the toilet and landed on the ground the patient reports that she had her left elbow and forearm and also struck her head the patient reports no loss of consciousness reports that she is not on any blood thinners patient reports that she has some mild discomfort in her left forearm and has a skin tear present on the scan. Patient reports no other injuries denies any other pain patient denies chest pain denies shortness of breath denies abdominal pain vomiting or diarrhea. Related Data Home Medications Medication Instructions Recorded Confirmed aspirin 81 mg tablet,delayed 81 mg PO DAILY 05/10/20 07/14/23 release (Adult Aspirin Regimen) docusate sodium 100 mg capsule 100 mg PO DAILY 01/21/21 07/14/23 (Colace) cjqdqwyf-pif-bojqb acid 0.4 1 tablet PO DAILY 01/21/21 07/14/23 mg-lycopene 300 mcg-lutein 250 mcg tablet (Centrum Silver) mirabegron 50 mg tablet,extended 50 mg PO HS 07/22/21 07/14/23 release 24 hr loratadine 10 mg tablet (Claritin) 10 mg PO DAILY PRN Congestion 05/05/23 07/14/23 polyethylene glycol 3350 17 gram 17 g PO QAM PRN Constipation 05/25/23 07/14/23 oral powder packet (Miralax) Allergies Allergy/AdvReac Type Severity Reaction Status Date / Time donepezil AdvReac Intermediate Swelling Verified 06/19/23 14:37 Review of Systems Review of Systems: A 10 system review of systems was completed on the patient and is negative except for what is stated in the HPI. Nursing and ancillary documentation was reviewed. [facility] Past Medical History Medical History Anxiety Chronic lower back pain Chronic venous insufficiency of lower extremity Closed fracture of left proximal tibia (03/2023) Cognitive impairment Constipation Debility Degenerative disc disease, lumbar Depression Diastolic dysfunction Dyslipidemia Environmental allergies Essential (primary) hypertension Falls frequently Gait abnormality GERD without esophagitis Mass of right lung Multinodular goiter Osteoporosis Overactive bladder Pericardial mass Subcapital fracture of right hip (12/2019) Thoracic spine pain Transient ischemic attack Surgical History Surgical History History of hysterectomy (1980) History of open reduction and internal fixation (ORIF) procedure (12/2019) Repair of hip fracture. Family History Family History Mother Breast cancer Unknown Hypertension Depression Cerebrovascular accident Arthritis Social History Social History Social History: Surrogate medical decision maker: Dillon Underwood, son. Code status: Full code. Smoking status: Never smoker Second hand tobacco smoke exposure: No Alcohol intake: never Substance use: never Substance use type: does not use Do You Feel Safe in your Home?: Yes Lack of Transportation: No Lack of Food: Never True Current Housing: I Have Housing Concerned About Future Housing: No Difficulty Paying Gas/Electric Bills: No Difficulty Paying for Meds: No Currently Unemployed: No Education: High School Diploma/GED Difficulty w/ Childcare or Family Care: No Living arrangements: alone Additional living arrangements comments: Assisted living at [facility] in [place]. Occupation/Education: retired Spiritual care concerns: No Agree to blood products: Yes Exam Narrative: GENERAL: Well-appearing, well-nourished, and in no acut
[2023-08-19 04:45] VITALS: BP 195/88; PULSE 63; RESP 19; O2SAT 96
[2023-08-19] MEDS: TETANUS,DIPHTHERIA,AC PERTUSSIS ADULT (0.5 ML) BOOSTRIX IM (04:45)
--- NOTE | 2023-08-19 04:48 | ECG_ITS ---
Measurements Intervals [place] Rate: 63 P: 66 [place]: 212 QRS: -47 QRSD: 157 T: 83 QT: 429 QTc: 439 Interpretive Statements SINUS RHYTHM WITH FIRST DEGREE AV BLOCK LEFT AXIS DEVIATION [QRS AXIS < -30] LEFT BUNDLE BRANCH BLOCK [120+ ms QRS DURATION, 80+ ms Q/S IN V1/V2, 85+ ms R IN I/aVL/V5/V6] COMPARED TO ECG 07/14/2023 13:42:35 FIRST DEGREE AV BLOCK NOW PRESENT Electronically Signed On 08-19-2023 16:28:07 BUSINESS ASST by Judith Reyes M.D.
[2023-08-19 06:10] VITALS: BP 207/82; PULSE 62; RESP 22; O2SAT 99
--- NOTE | 2023-08-19 07:14 | PC.NURSE ---
this rn contacted gina- pt son per pt request to come get her upon discharge. Gina stated that he was unable to get pt at this time but to call [facility] to provide transport. this rn contacted [facility] to come and provide transport to get pt home. This Rn spoke with AMINA Morris and gave pt report. AMINA Morris stated she was unable to provide transport for pt at this time. this rn then contacted heather, daughter of patient. heather stated she lived in [facility] and wouldn't be able to get there until 829. this rn confirmed that pt would still need a ride home. heather confirmed she would pick pt up.
== END 2023-08-19 07:37 ==
PROVIDERS: Emergency Provider Emergency Medicine; PCP Family Medicine
DX: S09.90XA Unspecified injury of head, initial encounter (principal); S51.812A Laceration without foreign body of left forearm, initial encounter; Z23 Encounter for immunization; I87.2 Venous insufficiency (chronic) (peripheral); I10 Essential (primary) hypertension; E78.5 Hyperlipidemia, unspecified; K21.9 Gastro-esophageal reflux disease without esophagitis; M51.36 Other intervertebral disc degeneration, lumbar region; M81.0 Age-related osteoporosis without current pathological fracture; N32.81 Overactive bladder; F41.9 Anxiety disorder, unspecified; F32.A Depression, unspecified; Z86.73 Personal history of transient ischemic attack (TIA), and cerebral infarction without residual deficits; Z90.710 Acquired absence of both cervix and uterus; Z79.82 Long term (current) use of aspirin; I44.7 Left bundle-branch block, unspecified; W18.11XA Fall from or off toilet without subsequent striking against object, initial encounter
CPT/HCPCS: 70450; 72125; 73080; 73110; 90471; 90715; 93005; 99284

== ENCOUNTER 2023-11-07 11:02 | Emergency (ER) | payer MEDICARE, SELFPAY ==
--- NOTE | ~2023-11-07 | XR_ITS ---
EXAMINATION: XR hip LT min 2V DATE: 11/07/2023 11:48 INDICATION: Left hip pain. Fall. TECHNIQUE: 2 views of left hip were obtained. COMPARISON: Left hip radiographs 04/08/2023 FINDINGS: Bone alignment is normal. No fracture. There is mild left hip osteoarthritis. Osseous pubis is noted. IMPRESSION: 1. Mild left hip osteoarthritis. Reviewed, dictated and finalized at location A.
--- NOTE | ~2023-11-07 | XR_ITS ---
EXAMINATION: XR shoulder LT min 2V DATE: 11/07/2023 11:48 INDICATION: Left shoulder pain. TECHNIQUE: 4 views of left shoulder were obtained. COMPARISON: Left shoulder radiographs 09/15/2015 FINDINGS: Bone alignment is normal. No fracture. There is moderate osteoarthritis of glenohumeral kellie nt with a loose body. There is mild osteoarthritis of acromioclavicular joint. IMPRESSION: 1. Moderate osteoarthritis of glenohumeral joint with a loose body. Reviewed, dictated and finalized at location A.
--- NOTE | 2023-11-07 11:07 | ED.FALL ---
HPI - Fall General Chief Complaint: Fall Stated Complaint: shoulder/hip pain Time Seen by Provider: 11/07/23 11:07 Source: patient Mode of arrival: ambulatory Limitations: no limitations History of Present Illness HPI Narrative: Mariam is an 88-year-old female patient presenting to the clinic today with complaints of left shoulder pain and left hip pain after falling around 3:00 a.m. at the assisted living facility when sitting on the commode. Patient reports she did hit the left side her head but denies any loss of consciousness or headache at this time. Is complaining of pain to the anterior left shoulder and to the lateral left hip. Related Data Home Medications Medication Instructions Recorded Confirmed aspirin 81 mg tablet,delayed 81 mg PO DAILY 05/10/20 11/07/23 release (Adult Aspirin Regimen) docusate sodium 100 mg capsule 100 mg PO DAILY 01/21/21 11/07/23 (Colace) eoxsaexk-wiv-xptst acid 0.4 1 tablet PO DAILY 01/21/21 11/07/23 mg-lycopene 300 mcg-lutein 250 mcg tablet (Centrum Silver) loratadine 10 mg tablet (Claritin) 10 mg PO DAILY PRN Congestion 05/05/23 11/07/23 polyethylene glycol 3350 17 gram 17 g PO QAM PRN Constipation 05/25/23 11/07/23 oral powder packet (Miralax) Allergies Allergy/AdvReac Type Severity Reaction Status Date / Time donepezil AdvReac Intermediate Swelling Verified 11/07/23 11:26 Review of Systems Review of Systems: Pertinent positives per HPI. Patient denies any fever, chills, rash, headache, visual changes, dizziness, cough, runny nose, sore throat, shortness of breath, chest pain, palpitations, nausea, vomiting, diarrhea, constipation, abdominal pain, or any urinary issues. [facility] Past Medical History Medical History Anxiety Chronic lower back pain Chronic venous insufficiency of lower extremity Closed fracture of left proximal tibia (03/2023) Cognitive impairment Constipation Debility Degenerative disc disease, lumbar Depression Diastolic dysfunction Dyslipidemia Environmental allergies Essential (primary) hypertension Falls frequently Gait abnormality GERD without esophagitis Mass of right lung Multinodular goiter Osteoporosis Overactive bladder Pericardial mass Subcapital fracture of right hip (12/2019) Thoracic spine pain Transient ischemic attack Surgical History Surgical History History of hysterectomy (1980) History of open reduction and internal fixation (ORIF) procedure (12/2019) Repair of hip fracture. Family History Family History Mother Breast cancer Unknown Hypertension Depression Cerebrovascular accident Arthritis Social History Social History Social History: Surrogate medical decision maker: Dillon Underwood, zainab. Code status: Full code. Smoking status: Never smoker Second hand tobacco smoke exposure: No Alcohol intake: never Substance use: never Substance use type: does not use Do You Feel Safe in your Home?: Yes Lack of Transportation: No Lack of Food: Never True Current Housing: I Have Housing Concerned About Future Housing: No Difficulty Paying Gas/Electric Bills: No Difficulty Paying for Meds: No Currently Unemployed: No Education: High School Diploma/GED Difficulty w/ Childcare or Family Care: No Living arrangements: alone Additional living arrangements comments: Assisted living at [facility] in [place]. Occupation/Education: retired Spiritual care concerns: No Agree to blood products: Yes Comments At the time of my signature, I reviewed and agree with the nursing past medical, surgical, social, and family history. There is no relevant family history pertinent to the patient complaint. Exam Narrative: General: Well-developed, well nou
[2023-11-07 11:18] VITALS: BP 130/69; PULSE 65; RESP 16; TEMP 36.4; O2SAT 99
== END 2023-11-07 12:21 | disposition home or self-care (01) ==
PROVIDERS: Emergency Provider Nurse Practitioner Family; PCP Family Medicine
DX: M25.512 Pain in left shoulder (principal); M25.552 Pain in left hip; W18.11XA Fall from or off toilet without subsequent striking against object, initial encounter; M15.9 Polyosteoarthritis, unspecified; M51.36 Other intervertebral disc degeneration, lumbar region; E78.5 Hyperlipidemia, unspecified; I10 Essential (primary) hypertension; K21.9 Gastro-esophageal reflux disease without esophagitis; M81.0 Age-related osteoporosis without current pathological fracture; Z86.73 Personal history of transient ischemic attack (TIA), and cerebral infarction without residual deficits; Z79.82 Long term (current) use of aspirin
CPT/HCPCS: 73030; 73502; 99214; G0463

== ENCOUNTER 2024-03-07 09:55 | Inpatient (IN) | payer MEDICARE, SELFPAY ==
[2024-03-07] VITALS (18 sets, daily range): BP systolic 138–221; BP diastolic 66–95; PULSE 63–75; RESP 14–24; TEMP 36.4–36.6; O2SAT 94–99; BMI 25.4
--- NOTE | ~2024-03-07 | MR_ITS ---
EXAMINATION: MR brain/brain stem wo con DATE: 03/08/2024 08:02 INDICATION: Fusion. Hypertensive urgency. TECHNIQUE: Magnetic resonance imaging (MRI) of the brain and brainstem was performed without intraven ous contrast. Sequences included sagittal and axial T1-weighted SE, axial diffusion-weighted FS SE, a xial 3D SWAN, axial T2-weighted FLAIR, and axial T2-weighted FSE. Apparent diffusion coefficient (ADC ) maps were created. COMPARISON: Head CT dated 03/07/2024 FINDINGS: There are no areas of restricted diffusion to suggest acute infarction. Small focus of susceptibility artifact in the left temporo-occipital region without evident correlate on the prior CT. No acute in tracranial hemorrhage or abnormal intracranial mass lesion. There are scattered areas of nonspecific increased T2-weighted signal intensity in the cerebral and pontine white matter, predominantly involv ing the deep and periventricular white matter. There are no intraparenchymal signal abnormalities see n on the other pulse sequences. The ventricles are symmetric and normal in size. There are no abnorma l extra-axial fluid collections. Flow voids are seen in the cerebral arteries on the T2-weighted sequ ences consistent with their expected patency. Left vertebral artery is dominant. Changes of bilateral intraocular lens replacement. Visualized orbits and soft tissues are unremarkable. IMPRESSION: 1. No acute intracranial process. 2. Single tiny focus of susceptibility artifact in the left temporal occipital region consistent with sequela of chronic microhemorrhage which can be seen in the setting of hypertension. 3. Moderate scattered periventricular predominant white matter T2 hyperintensity consistent with sequ herman chronic small vessel ischemic disease. Reviewed, dictated and finalized at location B. IMPRESSION: 1. No acute intracranial process. 2. Single tiny focus of susceptibility artifact in the left temporal occipital region consistent with sequela of chronic microhemorrhage which can be seen in the setting of hypertension. 3. Moderate scattered periventricular predominant white matter T2 hyperintensit y consistent with sequela chronic small vessel ischemic disease.
--- NOTE | ~2024-03-07 | XR_ITS ---
Portable chest x-ray Comparison: 07/14/2023 Clinical History: Confusion Findings: Probable retrocardiac airspace disease and possible small left pleural effusion. Right catina g clear. Cardiomediastinal silhouette is stable. Bones and soft tissues are unremarkable. Impression: Possible retrocardiac airspace disease and small left pleural effusion. Correlate for left lower lobe atelectasis or pneumonia. Possible COPD. Reviewed, dictated and finalized at location . Impression: Possible retrocardiac airspace disease and small left pleural effusion. Correla te for left lower lobe atelectasis or pneumonia. Possible COPD.
--- NOTE | ~2024-03-07 | CT_ITS ---
EXAMINATION: CT brain wo con DATE: 03/07/2024 13:33 INDICATION: Headache. Hypertension. TECHNIQUE: Computed tomography (CT) of the head was performed without intravenous contrast. The mA wa s adjusted according to patient size. Iterative reconstruction technique was employed. The dose-lengt h product was 605.33 mGy-cm. COMPARISON: Head CT 08/19/2023 FINDINGS: There are scattered areas of low attenuation in the cerebral white matter. There is no intr acranial hemorrhage, acute infarction, or abnormal intracranial mass lesion. The ventricles are markel l in size. There is mild mucosal thickening in the paranasal sinuses. There are likely changes of ocu lar lens replacement surgeries. The mastoid air cells are normal. IMPRESSION: 1. Worsened extensive nonspecific cerebral white matter disease, which likely represents chronic smal l vessel ischemic disease. Reviewed, dictated and finalized at location A. IMPRESSION: 1. Worsened extensive nonspecific cerebral white matter disease, which likely r epresents chronic small vessel ischemic disease.
--- NOTE | ~2024-03-07 | XR_ITS ---
EXAMINATION: XR chest 1V portable DATE: 03/11/2024 14:46 INDICATION: Shortness of breath. TECHNIQUE: A single frontal view of the chest was obtained. COMPARISON: Chest single view 03/09/2024, chest CT 07/14/2023 FINDINGS: There is chronic elevation of right hemidiaphragm. There is a diffuse interstitial pattern in the lungs, consistent with mild pulmonary edema. No pleural effusion or pneumothorax. Cardiomegaly is noted. IMPRESSION: 1. Mild pulmonary edema. 2. Cardiomegaly. Reviewed, dictated and finalized at location A.
--- NOTE | 2024-03-07 10:05 | ECG_ITS ---
Test Date: 2024-03-07 09:57:34 Measurements Intervals [place] Rate: 65 P: -4 CO: 189 QRS: -51 QRSD: 158 T: 95 QT: 432 QTc: 452 Interpretive Statements SINUS RHYTHM LEFT AXIS DEVIATION LEFT BUNDLE BRANCH BLOCK BASELINE ARTIFACT- I, II, III, AVR, AVL, AVF, V1-V6 ABNORMAL ECG No previous ECG available for comparison Electronically Signed On 03-07-2024 10:30:05 CDT by Chito Escudero D.O.
[2024-03-07] MEDS: niCARdipine 20 MG/200 ML 20 MG/200 ML BAG 50 MG IV CONT (10:11)
--- NOTE | 2024-03-07 10:11 | ED.GENADULT ---
HPI - General Adult General Chief complaint: Recheck/Abnormal Lab/Rx Stated complaint: htn Time Seen by Provider: 03/07/24 09:59 History of Present Illness HPI narrative: 89-year-old female presenting to the emergency department for evaluation for hypertension. Patient presented to the emergency department from local care facility and did receive her blood pressure medications this morning. Patient was found to be hypertensive and was approximately to 60 systolic when patient arrived to the emergency department. Patient was complaining of some headache but denies any other pain or complaint. Related Data Home Medications Medication Instructions Recorded Confirmed aspirin 81 mg tablet,delayed 81 mg PO DAILY 05/10/20 03/07/24 release (Adult Aspirin Regimen) docusate sodium 100 mg capsule 100 mg PO DAILY 01/21/21 03/07/24 (Colace) qhenxupv-isg-vlifs acid 0.4 1 tablet PO DAILY 01/21/21 03/07/24 mg-lycopene 300 mcg-lutein 250 mcg tablet (Centrum Silver) polyethylene glycol 3350 17 gram 17 g PO QAM PRN Constipation 05/25/23 03/07/24 oral powder packet (Miralax) potassium chloride 20 mEq 20 meq PO DAILY 03/07/24 03/07/24 tablet,extended release(part/cryst) (Klor-Con M) Allergies Allergy/AdvReac Type Severity Reaction Status Date / Time donepezil AdvReac Intermediate Swelling Verified 03/07/24 10:11 Review of Systems Review of Systems: All systems reviewed & are unremarkable except as noted in HPI and below PMFSH Past Medical History Medical History Anxiety Chronic lower back pain Chronic venous insufficiency of lower extremity Closed fracture of left proximal tibia (03/2023) Cognitive impairment Constipation Debility Degenerative disc disease, lumbar Depression Diastolic dysfunction Dyslipidemia Eczema Environmental allergies Essential (primary) hypertension Falls frequently Gait abnormality GERD without esophagitis Mass of right lung Multinodular goiter Osteoporosis Overactive bladder Pericardial mass Subcapital fracture of right hip (12/2019) Thoracic spine pain Transient ischemic attack Surgical History Surgical History History of hysterectomy (1980) History of open reduction and internal fixation (ORIF) procedure (12/2019) Repair of hip fracture. Family History Family History Mother Breast cancer Unknown Hypertension Depression Cerebrovascular accident Arthritis Social History Social History (Updated 03/07/24 @ 14:20 by Ev Garcia PA-C) Social History: Healthcare power of civil litigation attorney: Stephanie Chance, daughter. Code status: Do not resuscitate. Smoking status: Never smoker Second hand tobacco smoke exposure: No Alcohol intake: never Substance use: never Substance use type: does not use Do You Feel Safe in your Home?: Yes Lack of Transportation: No Lack of Food: Never True Current Housing: I Have Housing Concerned About Future Housing: No Difficulty Paying Gas/Electric Bills: No Difficulty Paying for Meds: No Currently Unemployed: No Education: High School Diploma/GED Difficulty w/ Childcare or Family Care: No Living arrangements: alone Additional living arrangements comments: Assisted living at [facility] in [place]. Occupation/Education: retired Spiritual care concerns: No Agree to blood products: Yes Exam Narrative: APPEARANCE: Well appearing, no pain, no distress, well-nourished. HEAD: normocephalic, atraumatic. EYES: PERRLA/EOMI, conjunctivae clear. NOSE: Normal no drainage EARS:TMS clear with good light reflex. THROAT: Pharynx clear, no exudate. NECK: Supple. No adenopathy, no masses. RESPIRATORY: Airway patent, respirations nonlabored. Clear to auscultation bilaterally, no rales, rhonchi, wheezing. CARDIOVASCULAR: Regular rate and rh
[2024-03-07 11:06] LABS: Basophils Percent Auto 0.8 % (0.2-1.2); Eosinophils Absolute Auto 0.2 K/mm3 (0-0.3); Eosinophils Percent Auto 3.8 % (0-4.4); Hematocrit 46.6 % (37.0-47.0); Hemoglobin 14.7 g/dL (12.0-15.0); Immature Granulocyte Absolute 0.02 K/mm3 (0.00-0.031); Immature Granulocyte Percent A 0.4 % (0-0.5); Lymphocytes Absolute Auto 1.08 K/mm3 (0.9-3.2); Lymphocytes Percent Auto 22.6 % (18.3-44.2); Mean Corpuscular HGB Conc 31.5 g/dl (32-36); Mean Corpuscular Hemoglobin 30.7 pg (26-34); Mean Corpuscular Volume 97.3 fl (80-100); Mean Platelet Volume 11.3 fl (7.4-10.4); Monocytes Absolute Auto 0.4 K/mm3 (0.1-0.6); Monocytes Percent Auto 9.2 % (2.6-8.5); Neutrophils Percent Auto 63.2 % (45.5-73.1); Platelet Count Result 201 k/mm3 (150-375); Red Blood Count 4.79 M/mm3 (4.2-5.4); Red Cell Distribution Width 12.2 % (11.5-14.5); White Blood Count 4.8 K/mm3 (4.5-10.0)
[2024-03-07 11:07] LABS: INR 0.9; Partial Thromboplastin Time 27.1 Seconds (22.3-36.8); Prothrombin Time 12.6 Seconds (11.1-14.7)
[2024-03-07 11:10] LABS: Alanine Aminotransferase 15 U/L (6-35); Albumin Level 4.4 g/dL (3.5-5.1); Alkaline Phosphatase 107 U/L (38-126); Anion Gap 9 mmol/L (4-12); Aspartate Amino Transferase 31 U/L (14-36); Bilirubin,Total 0.6 mg/dL (0.2-1.3); Blood Urea Nitrogen 22 mg/dL (7-17); Calcium 9.4 mg/dL (8.4-10.2); Carbon Dioxide 26 mmol/L (22-30); Chloride 99 mmol/L (98-107); Estimated CRCL calculation 34 ml/min; Estimated Glomerular Filt Rate 59; Glucose 109 mg/dL (65-110); Lactic Acid Reflex 0.9 mmol/L (0.7-2.0); Magnesium 2.2 mg/dL (1.6-2.3); Potassium 3.9 mmol/L (3.4-5.0); Sodium 134 mmol/L (137-145)
--- NOTE | 2024-03-07 12:40 | PM.IMHP ---
H&P: HPI History of Present Illness Date/Time: 03/07/24 12:40 Chief Complaint: Elevated blood pressure. Narrative: This is an 89-year-old female with hypertension, hyperlipidemia, gastroesophageal reflux disease, and overactive bladder presented to the emergency department with elevated blood pressures. The patient and her children provide the following history. The patient had an x-ray scheduled for today and her daughter came to take her to that appointment. Daughter reports that the patient seemed ?to be staring right through me? and the patient tells me that she was just not feeling herself. With further questioning she endorses increasing fatigue and generalized weakness the last several days as well suprapubic discomfort, dysuria, decreased appetite, and a mild headache. Staff at her facility report that she is at her baseline orientation however seems to be slower responding to questions today. Blood pressures were reportedly high prompting emergency services to be summoned. On EMS arrival her blood pressure was 240/138 and she was given 5 mg hydralazine in route. At the time my evaluation she denies fever, chills, sweats, visual changes, focal weakness, paresthesias, facial droop, difficulties speaking and swallowing, chest pain, pleuritic pain, palpitations, shortness of breath, vomiting, and diarrhea. In the ED: Blood pressure on arrival was 221/95. The remainder of her vital signs were stable. CMP and CBC were pretty unremarkable aside from a sodium of 134 and BUN of 22. Urinalysis was positive for trace ketones, nitrates, 1+ leukocyte esterase, 11 to 20 WBC, and 4+ bacteria. Head CT showed no acute findings. She was started on nicardipine drip with improvement after couple of hours. The drip has been discontinued and she will be given her home medications that she had was not given yet this morning. She is being admitted in this setting for further treatment and evaluation. Review of Systems Review of Systems: 12 systems were reviewed and are negative except for as per HPI. [facility] Past Medical History Medical History Anxiety Chronic lower back pain Chronic venous insufficiency of lower extremity Closed fracture of left proximal tibia (03/2023) Cognitive impairment Constipation Debility Degenerative disc disease, lumbar Depression Diastolic dysfunction Dyslipidemia Eczema Environmental allergies Essential (primary) hypertension Falls frequently Gait abnormality GERD without esophagitis Mass of right lung Multinodular goiter Osteoporosis Overactive bladder Pericardial mass Subcapital fracture of right hip (12/2019) Thoracic spine pain Transient ischemic attack Surgical History Surgical History History of hysterectomy (1980) History of open reduction and internal fixation (ORIF) procedure (12/2019) Repair of hip fracture. Family History Family History Mother Breast cancer Unknown Hypertension Depression Cerebrovascular accident Arthritis Social History Social History (Updated 03/07/24 @ 14:20 by Ev Garcia PA-C) Social History: Healthcare power of prosecuting attorney: Stephanie Chance, daughter. Code status: Do not resuscitate. Smoking status: Never smoker Second hand tobacco smoke exposure: No Alcohol intake: never Substance use: never Substance use type: does not use Do You Feel Safe in your Home?: Yes Lack of Transportation: No Lack of Food: Never True Current Housing: I Have Housing Concerned About Future Housing: No Difficulty Paying Gas/Electric Bills: No Difficulty Paying for Meds: No Currently Unemployed: No Education: High School Diploma/GED Difficulty w/ Childcare or Family Care: No Living arrangements: alone Additional living arrangements comments: Assisted living at [facility] in [facility]
--- NOTE | 2024-03-07 13:33 | PC.NURSE ---
Pt taken to room 214 via stretcher by tech. Pt on tele and O2 monitor
[2024-03-07 13:37] LABS: Add Urine Microscopic? YES; Appearance Urine Cloudy (Clear); Bacteria Urine 4+ /hpf; Bilirubin Urine Negative (Negative); Blood Urine Negative (Negative); Color Urine Yellow (Yellow); Glucose Urine UA Negative (Negative); Ketones Urine Trace mg/dL (Negative); Leukocyte Esterase Ur 1+ LEU/UL (Negative); Nitrate Urine Positive (Negative); Non Pathogenic Casts 0-2; Protein Urine Trace mg/dL (Negative); RBC Urine 0-2 /hpf (0-2); Specific Grav Ur 1.013 (1.001-1.035); Squamous Epithelial Cell Urine Occasional /hpf (Few); Urobilinogen Urine 0.2 mg/dL (<2.0)
--- NOTE | 2024-03-07 13:40 | ADMGEN ---
Addendum entered by Mi Luciano RN 03/07/24 18:03: Report received from AMINA Gerber @ 0933. Original Note: This patient, Mariam Underwood, was admitted to IMU Room 214-01. Patient/family oriented to hospital policies and general routines including ID bracelet, bed and alarms, visiting hours, pain management, procedures, bathroom and other care routines, personal items, smoking policy, room service/diet, and visiting hours. Information on how to activate the Rapid Response Team has been discussed. Patient/Family are encouraged to report perceived risks to care and to ask questions if they do not understand what they are told or what they should do.
[2024-03-07] MEDS: SODIUM CHLORIDE 0.9% IV 1,000 ML 75 ML IV CONT (14:54)
[2024-03-07] MEDS: lisinopriL 10 MG TABLET 30 MG PO (14:55)
[2024-03-07] MEDS: amLODIPine BESYLATE 10 MG TABLET PO (14:56)
[2024-03-07] MEDS: METOPROLOL SUCCINATE EXT REL 25 MG TABCR PO (14:56)
--- NOTE | 2024-03-07 15:00 | PC.NURSE ---
Notified PERCY Oneill of prompt when scanning ABX. Recommendation to order blood cultures before starting ABX. ABX being used for UTI and pt isn't septic. Verified with infectious pharmacist if blood cultures are warranted. Infectious pharmacist agrees that pt is not in need of blood cultures at this time. PA updated
[2024-03-07] MEDS: hydrALAZINE HCL 20 MG/ML VIAL 10 MG IV PUSH (17:17)
[2024-03-07] MEDS: ATORVASTATIN 20 MG TABLET PO (20:44)
[2024-03-07] MEDS: FAMOTIDINE 20 MG TABLET PO (20:44)
[2024-03-07] MEDS: MIRABEGRON 50 MG ER TABLET PO (20:45)
[2024-03-07] MEDS: HEPARIN SODIUM 5,000 UNITS/ML VIAL 5000 UNITS SUB-Q (20:50)
[2024-03-08] VITALS (16 sets, daily range): BP systolic 125–183; BP diastolic 60–90; PULSE 58–82; RESP 16–22; TEMP 36.4–36.5; O2SAT 94–100
[2024-03-08 05:29] LABS: Anion Gap 8 mmol/L (4-12); Blood Urea Nitrogen 16 mg/dL (7-17); Calcium 9.1 mg/dL (8.4-10.2); Carbon Dioxide 26 mmol/L (22-30); Chloride 106 mmol/L (98-107); Estimated CRCL calculation 50 ml/min; Estimated Glomerular Filt Rate > 60; Glucose 123 mg/dL (65-110); Magnesium 1.9 mg/dL (1.6-2.3); Potassium 3.6 mmol/L (3.4-5.0); Sodium 140 mmol/L (137-145)
[2024-03-08] MEDS: POTASSIUM CHLORIDE 20 MEQ ER TABLET PO (08:21)
[2024-03-08] MEDS: MELOXICAM 7.5 MG TABLET 15 MG PO (08:21)
[2024-03-08] MEDS: METOPROLOL SUCCINATE EXT REL 25 MG TABCR PO (08:21)
[2024-03-08] MEDS: SERTRALINE HCL 50 MG TABLET PO (08:21)
[2024-03-08] MEDS: MULTIVITAMINS /C LUTEIN (CENTRUM SILVER) TABLET *BKC 1 TAB PO (08:21)
[2024-03-08] MEDS: ASPIRIN 81 MG ENTERIC TABLET PO (08:21)
[2024-03-08] MEDS: HEPARIN SODIUM 5,000 UNITS/ML VIAL 5000 UNITS SUB-Q ×2 (08:21→21:10)
[2024-03-08] MEDS: lisinopriL 10 MG TABLET 30 MG PO (08:21)
[2024-03-08] MEDS: amLODIPine BESYLATE 10 MG TABLET PO (08:21)
[2024-03-08] MEDS: DOCUSATE SODIUM 100 MG CAPSULE PO (08:21)
[2024-03-08] MEDS: FAMOTIDINE 20 MG TABLET PO ×2 (08:21→21:08)
--- NOTE | 2024-03-08 15:40 | PM.IMPN ---
Progress Note: A&P Assessment and Plan (1) Hypertensive urgency: Code(s): I16.0 - Hypertensive urgency Status: Acute Assessment and Plan: The patient presented to the emergency department for evaluation after she was found to have a blood pressure of 240/138 Unclear why the patient's blood pressures spiked as she has reportedly been receiving her medications as directed. She was briefly on a nicardipine drip in the ED with improvement and that has since been discontinued. She was resumed on her usual antihypertensives of metoprolol, Norvasc and Lisinopril SBP 150-180 range. No acute CVA by MRI so will add hydralazine to her regiment. (2) Urinary tract infection: Code(s): N39.0 - Urinary tract infection, site not specified Status: Acute Assessment and Plan: UA is consistent with UTI. UCx collected. Rocephin started. UCx GNB. Follow up on UCx results. (3) Cognitive impairment: Code(s): R41.89 - Other symptoms and signs involving cognitive functions and awareness Status: Acute Assessment and Plan: Patient has mild cognitive impairment at baseline but worse over the last several days CT brain showing worsen extensive nonspecific cerebral white matter disease likely represents chronic small vessel ischemic disease. Brain MRI showing no acute process but does show a single tiny focus of susceptibility artifact in the left temporal occipital region consistent with sequela of chronic microhemorrhage which can be seen in the setting of HTN and moderate scattered periventricular predominant white matter T2 hyperintensity consistent with sequela chronic small vessel ischemic disease. Suspect worsening symptoms related to UTI. TSH normal. Will check CXR. Check B12, folate, VitD. Control BP better. PT/OT (4) Hyponatremia: Code(s): E87.1 - Hypo-osmolality and hyponatremia Status: Acute Assessment and Plan: Sodium 134 but normal on repeat Resolved (5) Diastolic dysfunction: Code(s): I51.89 - Other ill-defined heart diseases Status: Acute Assessment and Plan: Echo in June showing Grade I diastolic dysfunction. Clinically euvolemic. Follow. Okay to move out of IMU Plan DVT prophylaxis - Heparin Code status - DNR Subjective Date/time seen: 03/08/24 15:40 Interval history: 89yo female with HTN, HLD, GERD, cognitive impairment and overactive bladder presented to the emergency department with elevated blood pressures. No complaints today. Deneis CP or SOB. No n/v. Eating okay. She is alert but confused thus hx suspect. Review of Systems Review of Systems: ROS unobtainable: Yes unobtainable due to mental status Exam Narrative: AF 97.5 160/62 63 20 96% ra Gen - NARD Chest - CTA bilaterally, nml RR CV - RRR S1/S2; Tele showing no significant dysrhythmias Abd - soft, NT, ND, +BS Ext - no pedal edema. Neuro - awake, alert but confused Psych - pleasant and coopeative Skin - warm and dry Objective Data Vital Signs Vital Signs: Vital Signs - 24 hr 03/07/24 16:00 03/07/24 16:00 03/07/24 16:00 Temperature 97.8 F Pulse Rate 67 68 Respiratory Rate 16 Blood Pressure 185/72 H Pulse Oximetry 94 Oxygen Delivery Room Air Fraction of Inspired Oxygen 03/07/24 20:00 03/07/24 20:52 03/07/24 20:00 Temperature 98 F Pulse Rate 68 74 69 Respiratory Rate 16 18 Blood Pressure 159/69 H Pulse Oximetry 94 96 Oxygen Delivery Room Air Fraction of Inspired Oxygen 03/07/24 22:00 03/07/24 23:52 03/08/24 00:05 Temperature 97.6 F Pulse Rate 75 75 82 Respiratory Rate 18 18 Blood Pressure 160/72 H Pulse Oximetry 96 96 Oxygen Delivery Room Air Fraction of Inspired Oxygen 03/08/24 00:00 03/08/24 02:00 03/08/24 03:36 Temperature Pulse Rate 77 78 78 Respiratory Rate 18 Blood Pressure Pulse Oximetry 96 Oxygen Delivery Room Air Fraction of Inspired Oxyge
[2024-03-08] MEDS: hydrALAZINE 10 MG TABLET PO (17:49)
[2024-03-08] MEDS: MIRABEGRON 50 MG ER TABLET PO (21:08)
[2024-03-08] MEDS: ATORVASTATIN 20 MG TABLET PO (21:08)
--- NOTE | 2024-03-08 21:41 | PC.NURSE ---
This patient, Mariam Underwood, was transferred to [[id number] ] on 03/08/24 at 2141. Personal belongings sent with patient. Report given to [Anny Maki rn ]. Appropriate documentation sent with patient.
[2024-03-09 05:46] VITALS: BP 210/80; PULSE 72; RESP 18; TEMP 36.6; O2SAT 95
[2024-03-09] MEDS: hydrALAZINE HCL 20 MG/ML VIAL 10 MG IV PUSH (05:57)
[2024-03-09 06:42] VITALS: BP 160/81
[2024-03-09 08:02] LABS: Albumin Level 4.3 g/dL (3.5-5.1); Anion Gap 10 mmol/L (4-12); Blood Urea Nitrogen 21 mg/dL (7-17); Calcium 9.2 mg/dL (8.4-10.2); Carbon Dioxide 23 mmol/L (22-30); Chloride 106 mmol/L (98-107); Estimated CRCL calculation 43 ml/min; Estimated Glomerular Filt Rate > 60; Glucose 112 mg/dL (65-110); Magnesium 2.1 mg/dL (1.6-2.3); Phosphorus 3.1 mg/dL (2.5-4.5); Potassium 3.9 mmol/L (3.4-5.0); Sodium 139 mmol/L (137-145)
[2024-03-09] MEDS: lisinopriL 10 MG TABLET 30 MG PO (08:43)
[2024-03-09] MEDS: ASPIRIN 81 MG ENTERIC TABLET PO (08:43)
[2024-03-09] MEDS: POTASSIUM CHLORIDE 20 MEQ ER TABLET PO (08:43)
[2024-03-09] MEDS: DOCUSATE SODIUM 100 MG CAPSULE PO (08:43)
[2024-03-09] MEDS: HEPARIN SODIUM 5,000 UNITS/ML VIAL 5000 UNITS SUB-Q (08:43)
[2024-03-09] MEDS: SERTRALINE HCL 50 MG TABLET PO (08:43)
[2024-03-09] MEDS: METOPROLOL SUCCINATE EXT REL 25 MG TABCR PO (08:44)
[2024-03-09] MEDS: amLODIPine BESYLATE 10 MG TABLET PO (08:44)
[2024-03-09] MEDS: MULTIVITAMINS /C LUTEIN (CENTRUM SILVER) TABLET *BKC 1 TAB PO (08:44)
[2024-03-09] MEDS: FAMOTIDINE 20 MG TABLET PO ×2 (08:44→20:10)
[2024-03-09 09:08] LABS: Folic Acid > 20.0 ng/mL (2.76->20)
[2024-03-09] MEDS: hydrALAZINE 10 MG TABLET PO ×3 (10:32→17:24)
[2024-03-09] MEDS: MELOXICAM 7.5 MG TABLET 15 MG PO (11:55)
--- NOTE | 2024-03-09 12:47 | WPDNEURCNPN ---
Consult date: 03/09/24 HPI: Mariam Underwood is a 89 year old female admitted to the hospital through the emergency room for the complaints of hypertension also complain of severe headaches. Her medication at the time of admission include aspirin 81mg daily potassium chloride 20mEq daily, she has noted early allergic to donepezil, she has ongoing history of multiple medical problem particularly anxiety, with chronic low back pain, cognitive impairment hypertension, gait abnormality, osteoporosis with of overactive bladder, and history of fracture in the past she is never a smoker or alcohol intake initial exam in the emergency room documented able to move all 4 extremities no localize calf tenderness vital signs normal except blood pressure of 221/95 CBC, CMP, all normal, x-ray chest possibility of left lower lobe pneumonia versus atelectasis, MRI of the brain with no acute intracranial process for single tiny focus of susceptibility artifact in left temporal occipital region consistent with the chronic microhemorrhage which can be seen in the setting of hypertension, PMFSH Past Medical History Medical History Anxiety Chronic lower back pain Chronic venous insufficiency of lower extremity Closed fracture of left proximal tibia (03/2023) Cognitive impairment Constipation Debility Degenerative disc disease, lumbar Depression Diastolic dysfunction Dyslipidemia Eczema Environmental allergies Essential (primary) hypertension Falls frequently Gait abnormality GERD without esophagitis Mass of right lung Multinodular goiter Osteoporosis Overactive bladder Pericardial mass Subcapital fracture of right hip (12/2019) Thoracic spine pain Transient ischemic attack Surgical History Surgical History History of hysterectomy (1980) History of open reduction and internal fixation (ORIF) procedure (12/2019) Repair of hip fracture. Family History Family History Mother Breast cancer Unknown Hypertension Depression Cerebrovascular accident Arthritis Social History Social History (Updated 03/07/24 @ 14:20 by Ev Garcia PA-C) Social History: Healthcare power of real estate associate attorney: Stephanie Chance, daughter. Code status: Do not resuscitate. Smoking status: Never smoker Second hand tobacco smoke exposure: No Alcohol intake: never Substance use: never Substance use type: does not use Do You Feel Safe in your Home?: Yes Lack of Transportation: No Lack of Food: Never True Current Housing: I Have Housing Concerned About Future Housing: No Difficulty Paying Gas/Electric Bills: No Difficulty Paying for Meds: No Currently Unemployed: No Education: High School Diploma/GED Difficulty w/ Childcare or Family Care: No Living arrangements: alone Additional living arrangements comments: Assisted living at [facility] in [place]. Occupation/Education: retired Spiritual care concerns: No Agree to blood products: Yes Meds Home Medications and Allergies Home Medications Medication Instructions Recorded Confirmed Type aspirin 81 mg tablet,delayed 81 mg PO DAILY 05/10/20 03/07/24 History release (Adult Aspirin Regimen) docusate sodium 100 mg capsule 100 mg PO DAILY 01/21/21 03/07/24 History (Colace) dqpcesvx-bka-sptyq acid 0.4 1 tablet PO DAILY 01/21/21 03/07/24 History mg-lycopene 300 mcg-lutein 250 mcg tablet (Centrum Silver) polyethylene glycol 3350 17 gram 17 g PO QAM PRN Constipation 05/25/23 03/07/24 History oral powder packet (Miralax) amlodipine 10 mg tablet 10 mg PO DAILY #90 tabs 05/26/23 03/07/24 Rx acetaminophen 500 mg tablet 500 mg PO Q6H PRN fever or pain 08/11/23 03/07/24 Rx (Tylenol Extra Strength) #90 tabs metoprolol succinate 25 mg 25 mg PO DAILY #90 tabs 10/27/23 03/07/24 Rx tablet,extended relea
--- NOTE | 2024-03-09 12:59 | WPDNEURCNPN ---
Assessment and Plan Assessment and plan (1) Hypertensive urgency: Code(s): I16.0 - Hypertensive urgency Status: Acute Plan 1. Hypertension 2. Finding of the tiny hemorrhage mention in the report 3. All the pros and cons of the diagnosis were discussed with the relatives. Patient can be discharged on the same medication. Consult date: 03/09/24 HPI: Mariam Underwood is a 89 year old femaleAdmitted to the hospital through the emergency room for the complaints of hypertension and severe headaches. Her medications at the time of admission included aspirin 81mg daily, potassium chloride 20mEq daily, she has ongoing history of multiple medical problems particularly anxiety, chronic low back pain, cognitive impairment, hypertension, gait abnormality, and osteoporosis with overactive bladder addition the history of fracture in the past. She is not a smoker or alcohol intake. Initial exam in the emergency room documented her ability to move all 4 extremities but no localized calf tenderness, vital signs were normal except blood pressure of 221/95 for the reason she was admitted to the hospital her routine blood workup was negative x-ray chest with the possibility of left lower lobe pneumonia versus atelectasis. MRI of the brain revealed no significant abnormality there was mention of single tiny focus of susceptibility artifact in the left temporal occipital region consistent with the possibility of chronic microhemorrhage. [facility] Past Medical History Medical History Anxiety Chronic lower back pain Chronic venous insufficiency of lower extremity Closed fracture of left proximal tibia (03/2023) Cognitive impairment Constipation Debility Degenerative disc disease, lumbar Depression Diastolic dysfunction Dyslipidemia Eczema Environmental allergies Essential (primary) hypertension Falls frequently Gait abnormality GERD without esophagitis Mass of right lung Multinodular goiter Osteoporosis Overactive bladder Pericardial mass Subcapital fracture of right hip (12/2019) Thoracic spine pain Transient ischemic attack Surgical History Surgical History History of hysterectomy (1980) History of open reduction and internal fixation (ORIF) procedure (12/2019) Repair of hip fracture. Family History Family History Mother Breast cancer Unknown Hypertension Depression Cerebrovascular accident Arthritis Social History Social History Social History: Healthcare power of ict quality assurance engineer: Stephanie Chance, daughter. Code status: Do not resuscitate. Smoking status: Never smoker Second hand tobacco smoke exposure: No Alcohol intake: never Substance use: never Substance use type: does not use Do You Feel Safe in your Home?: Yes Lack of Transportation: No Lack of Food: Never True Current Housing: I Have Housing Concerned About Future Housing: No Difficulty Paying Gas/Electric Bills: No Difficulty Paying for Meds: No Currently Unemployed: No Education: High School Diploma/GED Difficulty w/ Childcare or Family Care: No Living arrangements: alone Additional living arrangements comments: Assisted living at [facility] in [place]. Occupation/Education: retired Spiritual care concerns: No Agree to blood products: Yes Meds Home Medications and Allergies Home Medications Medication Instructions Recorded Confirmed Type aspirin 81 mg tablet,delayed 81 mg PO DAILY 05/10/20 03/07/24 History release (Adult Aspirin Regimen) docusate sodium 100 mg capsule 100 mg PO DAILY 01/21/21 03/07/24 History (Colace) xbfaotsr-feu-yazka acid 0.4 1 tablet PO DAILY 01/21/21 03/07/24 History mg-lycopene 300 mcg-lutein 250 mcg tablet (Centrum Silver) polyethylene glycol 3350 17 gram 17 g PO QAM PRN Co
[2024-03-09 13:25] VITALS: BP 127/76; PULSE 64; RESP 18; TEMP 36.6; O2SAT 97
[2024-03-09 17:26] VITALS: BP 156/70; PULSE 64; O2SAT 97
--- NOTE | 2024-03-09 17:53 | PM.IMPN ---
Progress Note: A&P Assessment and Plan (1) Hypertensive urgency: Code(s): I16.0 - Hypertensive urgency Status: Acute Assessment and Plan: The patient presented to the emergency department for evaluation after she was found to have a blood pressure of 240/138 Unclear why the patient's blood pressures spiked as she has reportedly been receiving her medications as directed. She was briefly on a nicardipine drip in the ED with improvement and that has since been discontinued. She was resumed on her usual antihypertensives of metoprolol, Norvasc and Lisinopril SBP 150-180 range. No acute CVA by MRI so will add hydralazine to her regiment. Blood pressures are better controlled today (2) Urinary tract infection: Code(s): N39.0 - Urinary tract infection, site not specified Status: Acute Assessment and Plan: UA is consistent with UTI. UCx collected. Rocephin started. UCx growing Klebsiella pneumonia with good sensitivity to all antibiotics except nitrofurantoin Continue with IV Rocephin Will switch to p.o. meds upon discharge (3) Cognitive impairment: Code(s): R41.89 - Other symptoms and signs involving cognitive functions and awareness Status: Acute Assessment and Plan: Patient has mild cognitive impairment at baseline but worse over the last several days CT brain showing worsen extensive nonspecific cerebral white matter disease likely represents chronic small vessel ischemic disease. Brain MRI showing no acute process but does show a single tiny focus of susceptibility artifact in the left temporal occipital region consistent with sequela of chronic microhemorrhage which can be seen in the setting of HTN and moderate scattered periventricular predominant white matter T2 hyperintensity consistent with sequela chronic small vessel ischemic disease. Suspect worsening symptoms related to UTI. TSH normal. Will check CXR. Check B12, folate, VitD. Control BP better. PT/OT (4) Hyponatremia: Code(s): E87.1 - Hypo-osmolality and hyponatremia Status: Acute Assessment and Plan: Sodium 134 but normal on repeat Resolved (5) Diastolic dysfunction: Code(s): I51.89 - Other ill-defined heart diseases Status: Acute Assessment and Plan: Echo in June showing Grade I diastolic dysfunction. Clinically euvolemic. Follow. Okay to move out of IMU (6) Vitamin D deficiency: Code(s): E55.9 - Vitamin D deficiency, unspecified Status: Acute Assessment and Plan: Patient has mild vitamin D deficiency with vitamin-D level of 26 Vitamin-D 35761 units orally weekly ordered (7) Abnormal finding on MRI of brain: Code(s): R90.89 - Other abnormal findings on diagnostic imaging of central nervous system Status: Acute Assessment and Plan: Single tiny focus of chronic micro hemorrhage reported on brain MRI Neurology consult given for evaluation and further treatment recommendations DC subQ heparin for DVT prophylaxis Plan DVT prophylaxis - Heparin Code status - DNR ? Patient seen and examined at bedside during my morning rounds ? Collaborated with patient's nurse at the bedside in detail and addressed all concerns ? Labs, electrolytes, radiology, investigations and test results reviewed ? Consult/Nursing/Ancilliary notes on the chart reviewed and appreciated ? Spoke with patient/family at the bedside and answered all the questions that they had Repeat labs in a.m. Electrolyte replacement as per protocol. Patient will be monitored very closely on the floor. Further recommendations as per the hospital course. Time Spent With Patient Time with patient: 15 - 25 minutes Subjective Date/time seen: 03/09/24 17:53 Interval history: H&P: HPI History of Present Illness Date/Time: 03/07/24 12:40 Chief Complaint: Elevated blood pressure. Narrative: This is an 89-year-old female with hypertension, hyperlip
[2024-03-09 20:09] VITALS: BP 156/77; PULSE 67; RESP 20; TEMP 36.2; O2SAT 94
[2024-03-09] MEDS: ERGOCALCIFEROL 50,000 UNITS CAPSULE 50000 UNITS PO (20:10)
[2024-03-09] MEDS: MIRABEGRON 50 MG ER TABLET PO (20:10)
[2024-03-09] MEDS: ATORVASTATIN 20 MG TABLET PO (20:10)
[2024-03-10 05:07] VITALS: BP 163/83; PULSE 72; RESP 18; TEMP 37; O2SAT 97
[2024-03-10 07:25] LABS: Basophils Absolute Auto 0.1 K/mm3 (0.0-0.1); Basophils Percent Auto 0.8 % (0.2-1.2); Eosinophils Absolute Auto 0.3 K/mm3 (0-0.3); Eosinophils Percent Auto 4.7 % (0-4.4); Hematocrit 42.4 % (37.0-47.0); Hemoglobin 13.7 g/dL (12.0-15.0); Immature Granulocyte Absolute 0.02 K/mm3 (0.00-0.031); Immature Granulocyte Percent A 0.3 % (0-0.5); Lymphocytes Absolute Auto 1.01 K/mm3 (0.9-3.2); Lymphocytes Percent Auto 15.8 % (18.3-44.2); Mean Corpuscular HGB Conc 32.3 g/dl (32-36); Mean Corpuscular Hemoglobin 30.9 pg (26-34); Mean Corpuscular Volume 95.5 fl (80-100); Mean Platelet Volume 11.5 fl (7.4-10.4); Monocytes Absolute Auto 0.6 K/mm3 (0.1-0.6); Neutrophils Absolute Auto 4.5 K/mm3 (1.3-6.7); Neutrophils Percent Auto 69.4 % (45.5-73.1); Platelet Count Result 224 k/mm3 (150-375); Red Blood Count 4.44 M/mm3 (4.2-5.4); Red Cell Distribution Width 12.3 % (11.5-14.5); White Blood Count 6.4 K/mm3 (4.5-10.0)
[2024-03-10 07:32] LABS: Anion Gap 8 mmol/L (4-12); Blood Urea Nitrogen 17 mg/dL (7-17); Calcium 9.1 mg/dL (8.4-10.2); Carbon Dioxide 24 mmol/L (22-30); Chloride 105 mmol/L (98-107); Estimated CRCL calculation 50 ml/min; Estimated Glomerular Filt Rate > 60; Glucose 105 mg/dL (65-110); Potassium 3.5 mmol/L (3.4-5.0); Sodium 137 mmol/L (137-145)
[2024-03-10] MEDS: MELOXICAM 7.5 MG TABLET 15 MG PO (09:05)
[2024-03-10] MEDS: amLODIPine BESYLATE 10 MG TABLET PO (09:05)
[2024-03-10] MEDS: POTASSIUM CHLORIDE 20 MEQ ER TABLET PO (09:05)
[2024-03-10] MEDS: ASPIRIN 81 MG ENTERIC TABLET PO (09:05)
[2024-03-10 09:06] VITALS: PULSE 70
[2024-03-10] MEDS: METOPROLOL SUCCINATE EXT REL 25 MG TABCR PO (09:06)
[2024-03-10] MEDS: MULTIVITAMINS /C LUTEIN (CENTRUM SILVER) TABLET *BKC 1 TAB PO (09:06)
[2024-03-10] MEDS: DOCUSATE SODIUM 100 MG CAPSULE PO (09:06)
[2024-03-10] MEDS: SERTRALINE HCL 50 MG TABLET PO (09:06)
[2024-03-10] MEDS: hydrALAZINE 10 MG TABLET PO ×3 (09:06→17:34)
[2024-03-10] MEDS: FAMOTIDINE 20 MG TABLET PO ×2 (09:06→21:19)
[2024-03-10] MEDS: lisinopriL 10 MG TABLET 30 MG PO (09:06)
[2024-03-10] MEDS: POTASSIUM CHLORIDE 20 MEQ ER TABLET 40 MEQ PO (11:04)
[2024-03-10] MEDS: METOPROLOL SUCCINATE EXT REL 50 MG TABCR PO (11:05)
--- NOTE | 2024-03-10 12:16 | WPDNEUROPN ---
Progress Note: A&P Assessment and Plan (1) Abnormal finding on MRI of brain: Code(s): R90.89 - Other abnormal findings on diagnostic imaging of central nervous system Status: Acute (2) Essential (primary) hypertension: Code(s): I10 - Essential (primary) hypertension Status: Acute (3) MCI (mild cognitive impairment): Code(s): G31.84 - Mild cognitive impairment of uncertain or unknown etiology Status: Acute Plan the patient is stable and doing fairly well. MRI of the brain did not show any significant abnormalities. The patient may continue with baby aspirin other medications. I do not see where there is any reference to need for anticoagulation for her. She does appear to have some cognitive impairment however see in the hospital and is as pointed out this happens more when she is in hospital. A evaluation in 1-2 months time in the office May be helpful with regard to evaluation and management for any underlying Cognitive impairment. Subjective Date/time seen: 03/10/24 12:16 Interval history: The patient his 89 years old white female with history of hypertension. She presented to the hospital with hypertensive crisis. MRI of the brain shows a questionable area of bleed or microhemorrhage. She has had brain did not show any significant Abnormalities. Patient is stable and doing well at this time. She denies any symptoms. Review of Systems Review of Systems: All systems reviewed & are unremarkable except as noted in HPI and below Exam Const: General: cooperative, well developed and alert Orientation/consciousness: patient oriented x3 HENMT: Head: atraumatic Eyes: Alignment and Position: position normal Pupils: Equal, round and reactive pupils present EOM: EOMs intact bilaterally Neck: Neck: supple Resp: Effort & Inspection: normal respiratory effort Neuro: General: patient oriented x3 Cranial nerves: Yes CN's II-XII intact bilaterally, Yes facial sensation intact/muscles of mastication intact, Yes Equal, round and reactive pupils present, Yes facial symmetry and Yes Midline tongue present Cognition (Neuro): normal cognition Speech: normal speech Motor exam (neuro): 5/5 motor strength present throughout Coordination: [id number] test normal and Normal rapid alternating movements of the distal upper extremity present (Neuro) Other: The patient unable to tell me 5 colors or month or year or name of the hospital. She tells me that most of the things are better when she is out of here. Objective Data Vital Signs Vital Signs: Vital Signs - 24 hr 03/09/24 13:25 03/09/24 17:26 03/09/24 20:09 Temperature 97.9 F 97.1 F L Pulse Rate 64 64 67 Respiratory Rate 18 20 Blood Pressure 127/76 156/70 H 156/77 H Pulse Oximetry 97 97 94 Oxygen Delivery 03/10/24 05:07 03/10/24 09:06 03/10/24 08:30 Temperature 98.6 F Pulse Rate 72 70 Respiratory Rate 18 Blood Pressure 163/83 H Pulse Oximetry 97 Oxygen Delivery Room Air 03/10/24 10:10 Temperature Pulse Rate Respiratory Rate Blood Pressure Pulse Oximetry Oxygen Delivery Room Air Intake/Output Intake/Output: Intake & Output 03/07/24 03/08/24 03/09/24 03/10/24 23:59 23:59 23:59 23:59 Intake Total 635.0 950 640 660 Output Total 550 1050 700 400 Balance 85.0 -100 -60 260 Meds/Results Medications: Active Medications Generic Name Dose Route Start Last Admin Trade Name Freq PRN Reason Stop Dose Admin Acetaminophen 650 mg 03/07/24 14:26 Acetaminophen 325 Mg Tablet PO Q6H PRN Mild Pain (1-3) or Fever Amlodipine Besylate 10 mg 03/07/24 14:30 03/10/24 09:05 Amlodipine Besylate 10 Mg Tablet PO 10 mg DAILY OWEN Administration Aspirin 81 mg 03/08/24 09:00 03/10/24 09:05 Aspirin 81 Mg Enteric Tablet PO 81 mg DAILY OWEN Administration Atorvastatin Calcium 20 mg 03/07/24 21:00 03/09/24 20:10 Atorvastatin 20 Mg Tablet PO 20 mg
[2024-03-10] MEDS: CEPHALEXIN 500 MG CAPSULE PO ×2 (12:34→21:18)
[2024-03-10 13:00] VITALS: BP 127/71; PULSE 56; O2SAT 97
[2024-03-10 13:32] VITALS: BP 108/46; PULSE 55; RESP 15; TEMP 36.5; O2SAT 99
[2024-03-10 17:33] VITALS: BP 161/80; PULSE 64; O2SAT 92
--- NOTE | 2024-03-10 17:50 | PM.IMPN ---
Progress Note: A&P Assessment and Plan (1) Hypertensive urgency: Code(s): I16.0 - Hypertensive urgency Status: Acute Assessment and Plan: The patient presented to the emergency department for evaluation after she was found to have a blood pressure of 240/138 Unclear why the patient's blood pressures spiked as she has reportedly been receiving her medications as directed. She was briefly on a nicardipine drip in the ED with improvement and that has since been discontinued. She was resumed on her usual antihypertensives of metoprolol, Norvasc and Lisinopril SBP 150-180 range. No acute CVA by MRI so will add hydralazine to her regiment Her blood pressure levels remain elevated Increased metoprolol succinate to 50 mg p.o. daily Increase lisinopril to 40 mg p.o. daily Continue with the oral hydralazine IV hydralazine 10 mg q.6 hours p.r.n. for SBP more than 165 or DBP more than 105 Monitor blood pressure levels closely (2) Urinary tract infection: Code(s): N39.0 - Urinary tract infection, site not specified Status: Acute Assessment and Plan: UA is consistent with UTI. UCx collected. Rocephin started. UCx growing Klebsiella pneumonia with good sensitivity to all antibiotics except nitrofurantoin Switched IV Rocephin to oral cephalexin (3) Cognitive impairment: Code(s): R41.89 - Other symptoms and signs involving cognitive functions and awareness Status: Acute Assessment and Plan: Patient has mild cognitive impairment at baseline but worse over the last several days CT brain showing worsen extensive nonspecific cerebral white matter disease likely represents chronic small vessel ischemic disease. Brain MRI showing no acute process but does show a single tiny focus of susceptibility artifact in the left temporal occipital region consistent with sequela of chronic microhemorrhage which can be seen in the setting of HTN and moderate scattered periventricular predominant white matter T2 hyperintensity consistent with sequela chronic small vessel ischemic disease Continue with current meds as per Neurology Suspect worsening symptoms related to UTI TSH normal. Checked CXR, Vit B12, folic acid and VitD levels Continue with PT OT (4) Hyponatremia: Code(s): E87.1 - Hypo-osmolality and hyponatremia Status: Acute Assessment and Plan: Sodium 134 but normal on repeat Resolved (5) Diastolic dysfunction: Code(s): I51.89 - Other ill-defined heart diseases Status: Acute Assessment and Plan: Echo in June showing Grade I diastolic dysfunction. Clinically euvolemic. Monitor patient closely (6) Vitamin D deficiency: Code(s): E55.9 - Vitamin D deficiency, unspecified Status: Acute Assessment and Plan: Patient has mild vitamin D deficiency with vitamin-D level of 26 Vitamin-D 54642 units orally weekly ordered (7) Abnormal finding on MRI of brain: Code(s): R90.89 - Other abnormal findings on diagnostic imaging of central nervous system Status: Acute Assessment and Plan: Single tiny focus of chronic micro hemorrhage reported on brain MRI Neurology consult given for evaluation and further treatment recommendations who advised to continue with current medications DC subQ heparin for DVT prophylaxis Plan DVT prophylaxis - SCDs Code status - DNR Disposition - [facility] facility placement once arrangements are made by Case Management. ? Patient seen and examined at bedside during my morning rounds ? Collaborated with patient's nurse at the bedside in detail and addressed all concerns ? Labs, electrolytes, radiology, investigations and test results reviewed ? Consult/Nursing/Ancilliary notes on the chart reviewed and appreciated ? Spoke with patient/family at the bedside and answered all the questions that they had Repeat labs in a.m. Electrolyte replacement as per protocol. Patient will be monitored vishal
[2024-03-10 20:35] VITALS: BP 150/88; PULSE 61; RESP 20; TEMP 36.6; O2SAT 94
[2024-03-10] MEDS: ATORVASTATIN 20 MG TABLET PO (21:19)
[2024-03-10] MEDS: MIRABEGRON 50 MG ER TABLET PO (21:19)
[2024-03-11 05:56] LABS: Basophils Percent Auto 0.5 % (0.2-1.2); Eosinophils Absolute Auto 0.4 K/mm3 (0-0.3); Eosinophils Percent Auto 6.2 % (0-4.4); Hematocrit 39.9 % (37.0-47.0); Immature Granulocyte Absolute 0.01 K/mm3 (0.00-0.031); Immature Granulocyte Percent A 0.2 % (0-0.5); Lymphocytes Percent Auto 24.2 % (18.3-44.2); Mean Corpuscular HGB Conc 32.6 g/dl (32-36); Mean Corpuscular Hemoglobin 31.3 pg (26-34); Mean Corpuscular Volume 96.1 fl (80-100); Mean Platelet Volume 11.1 fl (7.4-10.4); Monocytes Absolute Auto 0.6 K/mm3 (0.1-0.6); Monocytes Percent Auto 10.9 % (2.6-8.5); Neutrophils Absolute Auto 3.4 K/mm3 (1.3-6.7); Platelet Count Result 191 k/mm3 (150-375); Red Blood Count 4.15 M/mm3 (4.2-5.4); Red Cell Distribution Width 12.4 % (11.5-14.5); White Blood Count 5.8 K/mm3 (4.5-10.0)
[2024-03-11 06:10] LABS: Anion Gap 6 mmol/L (4-12); Blood Urea Nitrogen 24 mg/dL (7-17); Calcium 9.3 mg/dL (8.4-10.2); Carbon Dioxide 26 mmol/L (22-30); Chloride 103 mmol/L (98-107); Estimated CRCL calculation 34 ml/min; Estimated Glomerular Filt Rate 59; Glucose 94 mg/dL (65-110); Potassium 3.8 mmol/L (3.4-5.0); Sodium 135 mmol/L (137-145)
[2024-03-11 08:00] VITALS: BP 133/69; PULSE 58; RESP 20; TEMP 36.7; O2SAT 98
[2024-03-11] MEDS: amLODIPine BESYLATE 10 MG TABLET PO (08:39)
[2024-03-11] MEDS: MELOXICAM 7.5 MG TABLET 15 MG PO (08:39)
[2024-03-11] MEDS: METOPROLOL SUCCINATE EXT REL 50 MG TABCR PO (08:39)
[2024-03-11] MEDS: CEPHALEXIN 500 MG CAPSULE PO ×2 (08:39→21:33)
[2024-03-11] MEDS: ASPIRIN 81 MG ENTERIC TABLET PO (08:39)
[2024-03-11] MEDS: FAMOTIDINE 20 MG TABLET PO ×2 (08:39→21:33)
[2024-03-11] MEDS: SERTRALINE HCL 50 MG TABLET PO (08:39)
[2024-03-11] MEDS: DOCUSATE SODIUM 100 MG CAPSULE PO (08:39)
[2024-03-11] MEDS: MULTIVITAMINS /C LUTEIN (CENTRUM SILVER) TABLET *BKC 1 TAB PO (08:39)
[2024-03-11] MEDS: lisinopriL 20 MG TABLET 40 MG PO (08:39)
[2024-03-11] MEDS: POTASSIUM CHLORIDE 20 MEQ ER TABLET PO (08:39)
[2024-03-11] MEDS: hydrALAZINE 10 MG TABLET PO ×2 (08:39→13:46)
[2024-03-11 11:37] VITALS: BP 149/53; PULSE 58
[2024-03-11 11:42] VITALS: BP 119/88; PULSE 56
[2024-03-11 11:46] VITALS: BP 105/53; PULSE 53
--- NOTE | 2024-03-11 14:47 | PM.IMPN ---
Progress Note: A&P Assessment and Plan (1) Hypertensive urgency: Code(s): I16.0 - Hypertensive urgency Status: Acute Assessment and Plan: The patient presented to the emergency department for evaluation after she was found to have a blood pressure of 240/138 Unclear why the patient's blood pressures spiked as she has reportedly been receiving her medications as directed. She was briefly on a nicardipine drip in the ED with improvement and that has since been discontinued. She was resumed on her usual antihypertensives of metoprolol, Norvasc and Lisinopril SBP 150-180 range. No acute CVA by MRI . Her blood pressure levels remain elevated Increased metoprolol succinate to 50 mg p.o. daily Increase lisinopril to 40 mg p.o. daily Continue with the oral hydralazine IV hydralazine 10 mg q.6 hours p.r.n. for SBP more than 165 or DBP more than 105 Monitor blood pressure levels closely Has seems to have a bit of orthostasis. (2) Urinary tract infection: Code(s): N39.0 - Urinary tract infection, site not specified Status: Acute Assessment and Plan: UA is consistent with UTI. UCx collected. Rocephin started. UCx growing Klebsiella pneumonia with good sensitivity to all antibiotics except nitrofurantoin Switched IV Rocephin to oral cephalexin (3) Cognitive impairment: Code(s): R41.89 - Other symptoms and signs involving cognitive functions and awareness Status: Acute Assessment and Plan: Patient has mild cognitive impairment at baseline but worse over the last several days CT brain showing worsen extensive nonspecific cerebral white matter disease likely represents chronic small vessel ischemic disease. Brain MRI showing no acute process but does show a single tiny focus of susceptibility artifact in the left temporal occipital region consistent with sequela of chronic microhemorrhage which can be seen in the setting of HTN and moderate scattered periventricular predominant white matter T2 hyperintensity consistent with sequela chronic small vessel ischemic disease Continue with current meds as per Neurology Suspect worsening symptoms related to UTI TSH normal. Chest x-ray with possible retrocardiac airspace disease and small left pleural effusion. Possible COPD, Vit B12, folic acid and VitD levels Continue with PT OT (4) Hyponatremia: Code(s): E87.1 - Hypo-osmolality and hyponatremia Status: Acute Assessment and Plan: Sodium 134 but normal on repeat Resolved (5) Diastolic dysfunction: Code(s): I51.89 - Other ill-defined heart diseases Status: Acute Assessment and Plan: Echo in June showing Grade I diastolic dysfunction. Clinically euvolemic. Monitor patient closely (6) Vitamin D deficiency: Code(s): E55.9 - Vitamin D deficiency, unspecified Status: Acute Assessment and Plan: Patient has mild vitamin D deficiency with vitamin-D level of 26 Vitamin-D 03162 units orally weekly ordered (7) Abnormal finding on MRI of brain: Code(s): R90.89 - Other abnormal findings on diagnostic imaging of central nervous system Status: Acute Assessment and Plan: Single tiny focus of chronic micro hemorrhage reported on brain MRI Neurology consult given for evaluation and further treatment recommendations who advised to continue with current medications DC subQ heparin for DVT prophylaxis Plan DVT prophylaxis - SCDs Code status - DNR Disposition - [facility] facility placement once arrangements are made by Case Management. Subjective Date/time seen: 03/11/24 14:47 Interval history: no overnight events. Orthostatic was checked which showed drop in her blood pressures down to 105 from 149 still intermittently confused. No other specific complaints. Review of Systems Review of Systems: All systems reviewed & are unremarkable except as noted in HPI and below Exam Narrative: Gen - N
[2024-03-11 15:54] VITALS: BP 148/65; PULSE 60; RESP 20; TEMP 36.4; O2SAT 93
[2024-03-11] MEDS: FUROSEMIDE INJ 40 MG/4 ML VIAL 20 MG IV PUSH (16:05)
[2024-03-11] MEDS: MIRABEGRON 50 MG ER TABLET PO (21:33)
[2024-03-11] MEDS: ATORVASTATIN 20 MG TABLET PO (21:33)
[2024-03-11 22:52] VITALS: O2SAT 93
[2024-03-12] VITALS (8 sets, daily range): BP systolic 113–188; BP diastolic 56–80; PULSE 58–90; RESP 16–19; TEMP 36.1–36.5; O2SAT 93–99
[2024-03-12 05:52] LABS: Basophils Percent Auto 0.7 % (0.2-1.2); Eosinophils Absolute Auto 0.3 K/mm3 (0-0.3); Eosinophils Percent Auto 4.7 % (0-4.4); Hemoglobin 13.1 g/dL (12.0-15.0); Immature Granulocyte Absolute 0.03 K/mm3 (0.00-0.031); Immature Granulocyte Percent A 0.5 % (0-0.5); Lymphocytes Absolute Auto 1.18 K/mm3 (0.9-3.2); Mean Corpuscular Hemoglobin 30.7 pg (26-34); Mean Platelet Volume 11.4 fl (7.4-10.4); Monocytes Absolute Auto 0.6 K/mm3 (0.1-0.6); Monocytes Percent Auto 9.7 % (2.6-8.5); Neutrophils Absolute Auto 3.8 K/mm3 (1.3-6.7); Neutrophils Percent Auto 64.4 % (45.5-73.1); Platelet Count Result 193 k/mm3 (150-375); Red Blood Count 4.27 M/mm3 (4.2-5.4); Red Cell Distribution Width 12.4 % (11.5-14.5); White Blood Count 5.9 K/mm3 (4.5-10.0)
[2024-03-12 06:04] LABS: Alanine Aminotransferase 20 U/L (6-35); Albumin Level 3.7 g/dL (3.5-5.1); Alkaline Phosphatase 87 U/L (38-126); Anion Gap 8 mmol/L (4-12); Aspartate Amino Transferase 46 U/L (14-36); Bilirubin,Total 0.5 mg/dL (0.2-1.3); Blood Urea Nitrogen 25 mg/dL (7-17); Calcium 9.2 mg/dL (8.4-10.2); Carbon Dioxide 25 mmol/L (22-30); Chloride 103 mmol/L (98-107); Estimated CRCL calculation 38 ml/min; Estimated Glomerular Filt Rate > 60; Glucose 101 mg/dL (65-110); Magnesium 2.1 mg/dL (1.6-2.3); Potassium 3.9 mmol/L (3.4-5.0); Sodium 136 mmol/L (137-145)
[2024-03-12] MEDS: amLODIPine BESYLATE 10 MG TABLET PO (08:47)
[2024-03-12] MEDS: lisinopriL 20 MG TABLET 40 MG PO (08:47)
[2024-03-12] MEDS: MELOXICAM 7.5 MG TABLET 15 MG PO (08:47)
[2024-03-12] MEDS: CEPHALEXIN 500 MG CAPSULE PO ×2 (08:47→22:09)
[2024-03-12] MEDS: FAMOTIDINE 20 MG TABLET PO ×2 (08:48→22:09)
[2024-03-12] MEDS: DOCUSATE SODIUM 100 MG CAPSULE PO (08:48)
[2024-03-12] MEDS: POTASSIUM CHLORIDE 20 MEQ ER TABLET PO (08:48)
[2024-03-12] MEDS: ASPIRIN 81 MG ENTERIC TABLET PO (08:49)
[2024-03-12] MEDS: SERTRALINE HCL 50 MG TABLET PO (08:49)
[2024-03-12] MEDS: hydrALAZINE 10 MG TABLET PO ×2 (08:49→17:45)
[2024-03-12] MEDS: METOPROLOL SUCCINATE EXT REL 50 MG TABCR PO (08:50)
[2024-03-12] MEDS: MULTIVITAMINS /C LUTEIN (CENTRUM SILVER) TABLET *BKC 1 TAB PO (08:55)
--- NOTE | 2024-03-12 08:58 | PM.IMPN ---
Progress Note: A&P Assessment and Plan (1) Hypertensive urgency: Code(s): I16.0 - Hypertensive urgency Status: Acute Assessment and Plan: The patient presented to the emergency department for evaluation after she was found to have a blood pressure of 240/138 Unclear why the patient's blood pressures spiked as she has reportedly been receiving her medications as directed. She was briefly on a nicardipine drip in the ED with improvement and that has since been discontinued. She was resumed on her usual antihypertensives of metoprolol, Norvasc and Lisinopril SBP 150-180 range. No acute CVA by MRI . Her blood pressure levels remain elevated Increased metoprolol succinate to 50 mg p.o. daily Increase lisinopril to 40 mg p.o. daily Continue with the oral hydralazine IV hydralazine 10 mg q.6 hours p.r.n. for SBP more than 165 or DBP more than 105 Monitor blood pressure levels closely Has seems to have a bit of orthostasis. (2) Urinary tract infection: Code(s): N39.0 - Urinary tract infection, site not specified Status: Acute Assessment and Plan: UA is consistent with UTI. UCx collected. Rocephin started. UCx growing Klebsiella pneumonia with good sensitivity to all antibiotics except nitrofurantoin Switched IV Rocephin to oral cephalexin (3) Cognitive impairment: Code(s): R41.89 - Other symptoms and signs involving cognitive functions and awareness Status: Acute Assessment and Plan: Patient has mild cognitive impairment at baseline but worse over the last several days CT brain showing worsen extensive nonspecific cerebral white matter disease likely represents chronic small vessel ischemic disease. Brain MRI showing no acute process but does show a single tiny focus of susceptibility artifact in the left temporal occipital region consistent with sequela of chronic microhemorrhage which can be seen in the setting of HTN and moderate scattered periventricular predominant white matter T2 hyperintensity consistent with sequela chronic small vessel ischemic disease Continue with current meds as per Neurology Suspect worsening symptoms related to UTI TSH normal. Chest x-ray with possible retrocardiac airspace disease and small left pleural effusion. Possible COPD, Vit B12, folic acid and VitD levels Continue with PT OT (4) Hyponatremia: Code(s): E87.1 - Hypo-osmolality and hyponatremia Status: Acute Assessment and Plan: Sodium 134 but normal on repeat Resolved (5) Diastolic dysfunction: Code(s): I51.89 - Other ill-defined heart diseases Status: Acute Assessment and Plan: Echo in June showing Grade I diastolic dysfunction. Clinically euvolemic. Monitor patient closely (6) Vitamin D deficiency: Code(s): E55.9 - Vitamin D deficiency, unspecified Status: Acute Assessment and Plan: Patient has mild vitamin D deficiency with vitamin-D level of 26 Vitamin-D 60934 units orally weekly ordered (7) Abnormal finding on MRI of brain: Code(s): R90.89 - Other abnormal findings on diagnostic imaging of central nervous system Status: Acute Assessment and Plan: Single tiny focus of chronic micro hemorrhage reported on brain MRI Neurology consult given for evaluation and further treatment recommendations who advised to continue with current medications DC subQ heparin for DVT prophylaxis Plan DVT prophylaxis - SCDs Code status - DNR Disposition - Plans to go home with home health noted when medically stable Subjective Date/time seen: 03/12/24 08:58 Interval history: no overNight events. No new complaints blood pressure trend reviewed. Review of Systems Review of Systems: All systems reviewed & are unremarkable except as noted in HPI and below Exam Narrative: Gen - NARD Chest - CTA bilaterally, nml RR CV - RRR S1/S2; Tele showing no significant dysrhythmias Abd - soft, NT, ND, +
--- NOTE | 2024-03-12 10:58 | PC.NURSE ---
Patient resting in bed. Patient is confused but cooperative. She has worked with therapy and up to the chair for breakfast.
[2024-03-12] MEDS: MIRABEGRON 50 MG ER TABLET PO (22:08)
[2024-03-12] MEDS: ATORVASTATIN 20 MG TABLET PO (22:09)
[2024-03-13] VITALS (7 sets, daily range): BP systolic 146–163; BP diastolic 57–75; PULSE 65–80; RESP 16–20; TEMP 36.2–36.8; O2SAT 94–96
[2024-03-13] MEDS: METOPROLOL SUCCINATE EXT REL 50 MG TABCR PO (09:12)
[2024-03-13] MEDS: FAMOTIDINE 20 MG TABLET PO ×2 (09:14→20:28)
[2024-03-13] MEDS: CEPHALEXIN 500 MG CAPSULE PO ×2 (09:14→20:28)
[2024-03-13] MEDS: MULTIVITAMINS /C LUTEIN (CENTRUM SILVER) TABLET *BKC 1 TAB PO (09:15)
[2024-03-13] MEDS: DOCUSATE SODIUM 100 MG CAPSULE PO (09:15)
[2024-03-13] MEDS: lisinopriL 20 MG TABLET 40 MG PO (09:15)
[2024-03-13] MEDS: ASPIRIN 81 MG ENTERIC TABLET PO (09:15)
[2024-03-13] MEDS: POTASSIUM CHLORIDE 20 MEQ ER TABLET PO (09:15)
[2024-03-13] MEDS: hydrALAZINE 10 MG TABLET PO ×2 (09:16→16:48)
[2024-03-13] MEDS: MELOXICAM 7.5 MG TABLET 15 MG PO (09:16)
[2024-03-13] MEDS: SERTRALINE HCL 50 MG TABLET PO (09:16)
[2024-03-13] MEDS: amLODIPine BESYLATE 10 MG TABLET PO (09:16)
--- NOTE | 2024-03-13 11:57 | PM.IMPN ---
Progress Note: A&P Assessment and Plan (1) Hypertensive urgency: Code(s): I16.0 - Hypertensive urgency Status: Acute Assessment and Plan: The patient presented to the emergency department for evaluation after she was found to have a blood pressure of 240/138 Unclear why the patient's blood pressures spiked as she has reportedly been receiving her medications as directed. She was briefly on a nicardipine drip in the ED with improvement and that has since been discontinued. She was resumed on her usual antihypertensives of metoprolol, Norvasc and Lisinopril SBP 150-180 range. No acute CVA by MRI . Her blood pressure levels remain elevated Increased metoprolol succinate to 50 mg p.o. daily Increase lisinopril to 40 mg p.o. daily Continue with the oral hydralazine IV hydralazine 10 mg q.6 hours p.r.n. for SBP more than 165 or DBP more than 105 Monitor blood pressure levels closely Has seems to have a bit of orthostasis. Due to monitor orthostatic vitals. (2) Urinary tract infection: Code(s): N39.0 - Urinary tract infection, site not specified Status: Acute Assessment and Plan: UA is consistent with UTI. UCx collected. Rocephin started. UCx growing Klebsiella pneumonia with good sensitivity to all antibiotics except nitrofurantoin Switched IV Rocephin to oral cephalexin (3) Cognitive impairment: Code(s): R41.89 - Other symptoms and signs involving cognitive functions and awareness Status: Acute Assessment and Plan: Patient has mild cognitive impairment at baseline but worse over the last several days CT brain showing worsen extensive nonspecific cerebral white matter disease likely represents chronic small vessel ischemic disease. Brain MRI showing no acute process but does show a single tiny focus of susceptibility artifact in the left temporal occipital region consistent with sequela of chronic microhemorrhage which can be seen in the setting of HTN and moderate scattered periventricular predominant white matter T2 hyperintensity consistent with sequela chronic small vessel ischemic disease Continue with current meds as per Neurology Suspect worsening symptoms related to UTI TSH normal. Chest x-ray with possible retrocardiac airspace disease and small left pleural effusion. Possible COPD, Vit B12, folic acid and VitD levels Continue with PT OT (4) Hyponatremia: Code(s): E87.1 - Hypo-osmolality and hyponatremia Status: Acute Assessment and Plan: Sodium 134 but normal on repeat Resolved (5) Diastolic dysfunction: Code(s): I51.89 - Other ill-defined heart diseases Status: Acute Assessment and Plan: Echo in June showing Grade I diastolic dysfunction. Clinically euvolemic. Monitor patient closely (6) Vitamin D deficiency: Code(s): E55.9 - Vitamin D deficiency, unspecified Status: Acute Assessment and Plan: Patient has mild vitamin D deficiency with vitamin-D level of 26 Vitamin-D 65209 units orally weekly ordered (7) Abnormal finding on MRI of brain: Code(s): R90.89 - Other abnormal findings on diagnostic imaging of central nervous system Status: Acute Assessment and Plan: Single tiny focus of chronic micro hemorrhage reported on brain MRI Neurology consult given for evaluation and further treatment recommendations who advised to continue with current medications DC subQ heparin for DVT prophylaxis Plan DVT prophylaxis - SCDs Code status - DNR Disposition - Plans to go home with home health noted when medically stable Subjective Date/time seen: 03/13/24 11:57 Interval history: Patient had an episode of confusion last night. No other complaints. Family at bedside and discussed with her. Blood pressure trend Review of Systems Review of Systems: All systems reviewed & are unremarkable except as noted in HPI and below Exam Narrative: Gen - NARD Chest - CTA b
[2024-03-13] MEDS: ATORVASTATIN 20 MG TABLET PO (20:28)
[2024-03-13] MEDS: MIRABEGRON 50 MG ER TABLET PO (20:28)
[2024-03-14 05:58] VITALS: BP 165/73; PULSE 61; RESP 18; TEMP 36.9; O2SAT 94
--- NOTE | 2024-03-14 08:25 | PM.DS ---
DS: Admitting Diagnosis Discharge Date 03/14/2024 Admitting Diagnosis Accelerated hypertension DS: Discharge Diagnosis Discharge Diagnosis (1) Hypertensive urgency: Code(s): I16.0 - Hypertensive urgency Status: Acute (2) Urinary tract infection: Code(s): N39.0 - Urinary tract infection, site not specified Status: Acute (3) Cognitive impairment: Code(s): R41.89 - Other symptoms and signs involving cognitive functions and awareness Status: Acute (4) Hyponatremia: Code(s): E87.1 - Hypo-osmolality and hyponatremia Status: Acute (5) Diastolic dysfunction: Code(s): I51.89 - Other ill-defined heart diseases Status: Acute (6) Vitamin D deficiency: Code(s): E55.9 - Vitamin D deficiency, unspecified Status: Acute (7) Abnormal finding on MRI of brain: Code(s): R90.89 - Other abnormal findings on diagnostic imaging of central nervous system Status: Acute DS: Summary Hospital Course Hospital Course: # Hypertensive urgency: The patient presented to the emergency department for evaluation after she was found to have a blood pressure of 240/138 Unclear why the patient's blood pressures spiked as she has reportedly been receiving her medications as directed. She was briefly on a nicardipine drip in the ED with improvement and that has since been discontinued. She was resumed on her usual antihypertensives of metoprolol, Norvasc and Lisinopril SBP 150-180 range. No acute CVA by MRI . Her blood pressure levels remain elevated Increased metoprolol succinate to 50 mg p.o. daily Increase lisinopril to 40 mg p.o. daily Continue with the oral hydralazine IV hydralazine 10 mg q.6 hours p.r.n. for SBP more than 165 or DBP more than 105 Monitor blood pressure levels closely Has seems to have a bit of orthostasis. Continue to monitor orthostatic vitals. And remained stable # Urinary tract infection: UA is consistent with UTI. UCx collected. Rocephin started. UCx growing Klebsiella pneumonia with good sensitivity to all antibiotics except nitrofurantoin Switched IV Rocephin to oral cephalexin. Completed treatment course during the hospital stay # Cognitive impairment: Patient has mild cognitive impairment at baseline but worse over the last several days CT brain showing worsen extensive nonspecific cerebral white matter disease likely represents chronic small vessel ischemic disease. Brain MRI showing no acute process but does show a single tiny focus of susceptibility artifact in the left temporal occipital region consistent with sequela of chronic microhemorrhage which can be seen in the setting of HTN and moderate scattered periventricular predominant white matter T2 hyperintensity consistent with sequela chronic small vessel ischemic disease Continue with current meds as per Neurology Suspect worsening symptoms related to UTI TSH normal. Chest x-ray with possible retrocardiac airspace disease and small left pleural effusion. Possible COPD, Vit B12, folic acid and VitD levels Continue with PT OT # Hyponatremia: Sodium 134 but normal on repeat Resolved # Diastolic dysfunction: Echo in June showing Grade I diastolic dysfunction. Clinically euvolemic. Monitor patient closely # Vitamin D deficiency: Patient has mild vitamin D deficiency with vitamin-D level of 26 Vitamin-D 46785 units orally weekly ordered # Abnormal finding on MRI of brain: Single tiny focus of chronic micro hemorrhage reported on brain MRI Neurology consult given for evaluation and further treatment recommendations who advised to continue with current medications # DC subQ heparin for DVT prophylaxis # Code status - DNR # Disposition -home with home health arranged Time Spent with Patient Time attestation: Total time spent providing and/or coordinating discharge services: 35 minutes Exam Narrative: Gen - NARD Chest - CTA bilaterally, nml RR CV - RRR S1/S2; Tel
[2024-03-14] MEDS: lisinopriL 20 MG TABLET 40 MG PO (09:59)
[2024-03-14] MEDS: POTASSIUM CHLORIDE 20 MEQ ER TABLET PO (09:59)
[2024-03-14 10:00] VITALS: PULSE 63
[2024-03-14] MEDS: FAMOTIDINE 20 MG TABLET PO (10:00)
[2024-03-14] MEDS: METOPROLOL SUCCINATE EXT REL 50 MG TABCR PO (10:00)
[2024-03-14] MEDS: amLODIPine BESYLATE 10 MG TABLET PO (10:00)
[2024-03-14] MEDS: ASPIRIN 81 MG ENTERIC TABLET PO (10:01)
[2024-03-14] MEDS: MULTIVITAMINS /C LUTEIN (CENTRUM SILVER) TABLET *BKC 1 TAB PO (10:01)
[2024-03-14] MEDS: MELOXICAM 7.5 MG TABLET 15 MG PO (10:01)
[2024-03-14] MEDS: hydrALAZINE 10 MG TABLET PO (10:01)
[2024-03-14] MEDS: SERTRALINE HCL 50 MG TABLET PO (10:01)
[2024-03-14] MEDS: DOCUSATE SODIUM 100 MG CAPSULE PO (10:01)
[2024-03-14 10:05] VITALS: O2SAT 95
== END 2024-03-14 11:41 | disposition home health service (06) | DRG 304 ==
LOC: ANHED 13:19 → ANHIMU 13:52 → ANH3MED 03-08 21:40
PROVIDERS: Family Medicine; Internal Medicine; Physician Assistant; Admitting Provider General Practice; Emergency Provider Emergency Medicine; PCP Family Medicine; Visit Provider Internal Medicine
DX: I16.0 Hypertensive urgency (principal); I61.9 Nontraumatic intracerebral hemorrhage, unspecified; E87.1 Hypo-osmolality and hyponatremia; N39.0 Urinary tract infection, site not specified; B96.1 Klebsiella pneumoniae [K. pneumoniae] as the cause of diseases classified elsewhere; I10 Essential (primary) hypertension; N32.81 Overactive bladder; E78.5 Hyperlipidemia, unspecified; E04.2 Nontoxic multinodular goiter; E55.9 Vitamin D deficiency, unspecified; K21.9 Gastro-esophageal reflux disease without esophagitis; L30.9 Dermatitis, unspecified; M51.36 Other intervertebral disc degeneration, lumbar region; M81.0 Age-related osteoporosis without current pathological fracture; M54.50 Low back pain, unspecified; G89.29 Other chronic pain; G31.84 Mild cognitive impairment of uncertain or unknown etiology; R26.9 Unspecified abnormalities of gait and mobility; R29.6 Repeated falls; F32.A Depression, unspecified; F41.9 Anxiety disorder, unspecified; Z79.82 Long term (current) use of aspirin; Z86.73 Personal history of transient ischemic attack (TIA), and cerebral infarction without residual deficits
CPT/HCPCS: 36415; 70450; 70551; 71045; 80048; 80053; 80069; 81001; 82306; 82607; 82746; 83605; 83735; 84443; 85025; 85610; 85730; 87077; 87086; 87088; 87186; 93005; 96365; 96366; 97110; 97161; 97166; 97530; 97535; 99285; A9270; G0378; J0360; J0696; J1644; J1940; J2404; J7030

== ENCOUNTER 2024-04-24 01:48 | Emergency (ER) | payer MEDICARE, SELFPAY ==
--- NOTE | ~2024-04-24 | CT_ITS ---
EXAMINATION: CT pelvis wo con DATE: 04/24/2024 01:40 INDICATION: Pelvic pain post fall TECHNIQUE: High resolution computed tomography (CT) of the [place] was performed without intravenous co ntrast. Additional sagittal and coronal reconstructions were performed. Automated exposure control an d iterative reconstruction technique were employed. The dose-length product was 338.81 mGy-cm. COMPARISON: None FINDINGS: Alignment is normal. Old healed subcapital fracture of the proximal right femur which is fixed with 3 cannulated lag screws. No surrounding lucency to suggest loosening or infection. No acute fracture. 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 Sev ere lower lumbar spondylosis. The uterus is not identified and has likely been surgically resected. B ladder is normal. Visualized portions of bowels are unremarkable. No pathologically enlarged pelvic o r inguinal lymphadenopathy. IMPRESSION: 1. Old healed subcapital fracture of the proximal right femur with lag screw fixation. No acute osseo us abnormality. 2. Severe lower lumbar spondylosis with moderate bilateral sacral iliac and mild bilateral hip osteoa rthritis. Reviewed, dictated and finalized at location A. [facility] CUSTOMER SERVICE REPRESENTATIVE IMPRESSION: 1. Old healed subcapital fracture of the proximal right femur with lag screw fi xation. No acute osseous abnormality. 2. Severe lower lumbar spondylosis with moderate bilateral sacral iliac and mil d bilateral hip osteoarthritis.
--- NOTE | ~2024-04-24 | CT_ITS ---
EXAMINATION: CT brain wo con DATE: 04/24/2024 01:39 INDICATION: Head trauma TECHNIQUE: Computed tomography (CT) of the head was performed without intravenous contrast. Sagittal and coronal reconstructions were performed. The mA was adjusted according to patient size. Iterative reconstruction technique was employed. The dose-length product was 605.33 mGy-cm. COMPARISON: head CT dated 03/07/24 and brain MR dated 03/08/2024 FINDINGS: No fracture. No acute intracranial hemorrhage, acute infarction or abnormal extra axial fluid collect ion. There is extensive scattered white matter hypoattenuation consistent with chronic small vessel i schemic disease. Symmetric prominence of the sulci consistent with mild to moderate age-appropriate d iffuse cerebral volume loss. Ventricles are normal and symmetric. No mass/mass effect. Changes of ericka ateral intraocular lens replacement. The orbits and mastoid air cells are normal. Small mucous retent ion cyst in the right sphenoid sinus. IMPRESSION: 1. No fracture or acute intracranial process. 2. Age-related changes including mild to moderate diffuse volume loss and extensive white matter hypo attenuation consistent with chronic small vessel ischemic disease. Reviewed, dictated and finalized at location A. IANCE MECHANIC IMPRESSION: 1. No fracture or acute intracranial process. 2. Age-related changes including mild to moderate diffuse volume loss and exten sive white matter hypoattenuation consistent with chronic small vessel ischemic disease.
--- NOTE | ~2024-04-24 | CT_ITS ---
EXAMINATION: CT cervical spine wo con DATE: 04/24/2024 01:40 INDICATION: Neck trauma TECHNIQUE: Computed tomography (CT) of the cervical spine was performed without intravenous contrast. Automated exposure control and iterative reconstruction technique were employed. The dose-length pro duct was 342.42 mGy-cm. COMPARISON: 08/19/2023 FINDINGS: 8 degrees lower cervical dextrocurvature and a degree upper thoracic levocurvature. Sagittal alignmen t is normal. Vertebral body heights are normal. Moderate disc height loss at C2-C3 with fusion across the bilateral facet and uncovertebral joints. Additional anterior and posterior spinal fusion at C7- T1. Severe disc height loss with severe bilateral uncovertebral osteoarthritis at C5-C6 and severe le ft-sided and moderate right-sided uncovertebral osteoarthritis at C6-C7. Moderate disc height loss at C4-C5, T1-T2 and T2-T3. Mild disc height loss at C3-C4. Posterior disc osteophyte complexes resultin g in mild central canal stenosis at C6-C7 and mild to moderate central canal stenosis at C5-C6. Multi level severe bilateral cervical facet osteoarthritis. There is moderate neural foraminal stenosis on the left at C3-C4, bilaterally at C4-C5 and C5-C6 and on the left at C6-C7. Mild neural from stenosis remaining cervical levels. Atherosclerotic calcifications at the bilateral carotid bulbs. Cervical s oft tissues are otherwise unremarkable. Mild biapical pleural-parenchymal scarring. IMPRESSION: 1. Severe cervical spondylosis with no acute osseous abnormality. Reviewed, dictated and finalized at location A. ETING REPRESENTATIVE
--- NOTE | ~2024-04-24 | CT_ITS ---
EXAMINATION: CT lumbar spine wo con DATE: 04/24/2024 01:40 INDICATION: Lumbar trauma TECHNIQUE: Computed tomography (CT) of the lumbar spine was performed without intravenous contrast. A utomated exposure control and iterative reconstruction technique were employed. The dose-length produ ct was 788.20 mGy-cm. COMPARISON: 04/30/2021 FINDINGS: 2 mm retrolisthesis L2 on L3 and L3 on L4 and 2 mm anterolisthesis L5 on S1. Vertebral body heights a re normal. There are a few Schmorl's nodes along the endplates of the T11-T12 through L1-L2 disc spac es. No fracture. Severe disc height loss at L2-L3 through L5-S1. Mild disc height loss at T11-T12 and T12-L1. Paravertebral soft tissues are unremarkable. Moderate osteoarthritis at the bilateral sacroi liac joints. The following disc levels are specifically discussed: T11-T12: Disc is bulging. There is mild left and moderate right facet joint osteoarthritis. There is no neural foraminal stenosis. There is minimal central canal stenosis. T12-L1: Disc is bulging. There is moderate bilateral facet joint osteoarthritis. There is minimal ericka ateral neural foraminal stenosis. There is mild central canal stenosis. L1-L2: Disc is bulging. There is moderate bilateral facet joint osteoarthritis. There is mild bilater al neural foraminal stenosis. There is mild central canal stenosis. L2-L3: Posterior disc osteophyte complex. There is mild to moderate bilateral facet joint osteoarthri tis. There is moderate bilateral neural foraminal stenosis. There is mild central canal stenosis. L3-L4: Posterior disc osteophyte complex. There is mild left and moderate right facet joint osteoarth ritis. There is moderate bilateral neural foraminal stenosis. There is mild to moderate central canal stenosis. L4-L5: Posterior disc osteophyte complex. There is severe bilateral facet joint osteoarthritis. There is moderate left and mild to moderate right neural foraminal stenosis. There is mild to moderate rebeca tral canal stenosis. L5-S1: Disc is bulging. There is severe bilateral facet joint osteoarthritis. There is mild to modera te bilateral neural foraminal stenosis. There is mild central canal stenosis. IMPRESSION: 1. Severe lumbar spondylosis. No acute osseous abnormality. Reviewed, dictated and finalized at location A. ULTING IT ARCHITECT
--- NOTE | ~2024-04-24 | XR_ITS ---
EXAMINATION: XR elbow RT min 3V DATE: 04/24/2024 02:04 INDICATION: Right elbow pain post fall TECHNIQUE: Anteroposterior, oblique and lateral views of the right elbow were obtained. COMPARISON: None. FINDINGS: Alignment is normal. No fracture or joint effusion. Mild osteoarthritis at the right elbow. Soft tiss ues are unremarkable. IMPRESSION: 1. No acute osseous abnormality. Reviewed, dictated and finalized at location A. ND GRADE TEACHER
--- NOTE | ~2024-04-24 | XR_ITS ---
EXAMINATION: XR hip BI 2V w AP pelvis DATE: 04/24/2024 02:04 INDICATION: Pelvic pain post fall TECHNIQUE: Anteroposterior view of the pelvis and anteroposterior and frog-leg lateral views of the l eft hip and anteroposterior and frog-leg lateral views of the right hip and were obtained. COMPARISON: None. FINDINGS: Unchanged old subcapital fracture of the proximal right femur which is fixed with 3 lag screws which is in near-anatomic alignment. No acute fracture or new traumatic malalignment. Mild osteoarthritis a t the bilateral hip and sacroiliac joints. Severe lumbar spondylosis IMPRESSION: 1. No acute osseous abnormality. Reviewed, dictated and finalized at location A. IC WORKS INSPECTOR
[2024-04-24 01:47] VITALS: BP 165/86; PULSE 64; RESP 15; TEMP 36.3; O2SAT 98
--- NOTE | 2024-04-24 03:09 | ED_ITS ---
HPI - General Adult General Chief complaint: Fall Stated complaint: FALL/ROLL OUT OF BED Time Seen by Provider: 04/24/24 01:59 CDT History of Present Illness HPI narrative: Patient 89-year-old female who presents emergency department with chief complaint of fall. Patient reports she rolled out of bed and thinking she was dreaming had the patient reports that she was than trapped between the bed her wall the patient reports she has pain in her lumbar region reports she may have struck her head and has pain in her hips. Patient also reported that she had elbow Related Data Home Medications Medication Instructions Recorded Confirmed aspirin 81 mg tablet,delayed 81 mg PO DAILY 05/10/20 03/23/24 release (Adult Aspirin Regimen) docusate sodium 100 mg capsule 100 mg PO DAILY 01/21/21 03/23/24 (Colace) lgltyeaa-jxz-ibzal acid 0.4 1 tablet PO DAILY 01/21/21 03/23/24 mg-lycopene 300 mcg-lutein 250 mcg tablet (Centrum Silver) polyethylene glycol 3350 17 gram 17 g PO QAM PRN Constipation 05/25/23 03/23/24 oral powder packet (Miralax) potassium chloride 20 mEq 20 meq PO DAILY 03/07/24 03/23/24 tablet,extended release(part/cryst) (Klor-Con M) Allergies Allergy/AdvReac Type Severity Reaction Status Date / Time donepezil AdvReac Intermediate Swelling Verified 03/23/24 14:08 Review of Systems Review of Systems: A 10 system review of systems was completed on the patient and is negative except for what is stated in the HPI. Nursing and ancillary documentation was reviewed. [facility] Past Medical History Medical History Anxiety Chronic lower back pain Chronic venous insufficiency of lower extremity Closed fracture of left proximal tibia (03/2023) Cognitive impairment Constipation Debility Degenerative disc disease, lumbar Depression Diastolic dysfunction Dyslipidemia Eczema Environmental allergies Essential (primary) hypertension Falls frequently Gait abnormality GERD without esophagitis Mass of right lung MCI (mild cognitive impairment) Multinodular goiter Osteoporosis Overactive bladder Pericardial mass Subcapital fracture of right hip (12/2019) Thoracic spine pain Transient ischemic attack Surgical History Surgical History History of hysterectomy (1980) History of open reduction and internal fixation (ORIF) procedure (12/2019) Repair of hip fracture. 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 Code status: Do not resuscitate. Smoking status: Never smoker Second hand tobacco smoke exposure: No Alcohol intake: never Substance use: never Substance use type: does not use Do You Feel Safe in your Home?: Yes Lack of Transportation: No Lack of Food: Never True Current Housing: I Have Housing Concerned About Future Housing: No Difficulty Paying Gas/Electric Bills: No Difficulty Paying for Meds: No Currently Unemployed: No Education: High School Diploma/GED Difficulty w/ Childcare or Family Care: No Living arrangements: alone Additional living arrangements comments: Assisted living at [facility] in [place]. Occupation/Education: retired Spiritual care concerns: No Agree to blood products: Yes Exam Narrative: GENERAL: Well-appearing, well-nourished, and in no acute distress. HEAD: Normocephalic, atraumatic. EYES: PERRLA and EOMI. ENT: Nares clear, no rhinorrhea or epistaxis. Mucous membranes moist. NECK: Supple. CHEST: Clear to auscultation. No respiratory distress. HEART: Regular rate and rhythm. No murmur heard. Normal peripheral pulses. ABDOMEN: Soft, nontender, nondistended, normal active bowel sounds. EXTREMITIES: Normal range of motion mild tenderness palpation the right elbow small abrasion present. No edema. SKIN: Warm, dry, no rash. NEURO: No focal deficits. Alert and oriented x3. PSYCH: Normal mood and affect. Course Vital Signs Vital signs: Vital Signs Temperature 36.3 C L 04/24/24 01:47 CDT Pulse Rate 64 04/24/24 01:47 CDT Respiratory Rate 15 04/24/24 01:47 CDT Blood Pressure 165/86 H 04/24/24 01:47 CDT Pulse Oximetry 98 04/24/24 01:47 CDT Oxygen Delivery Room Air 04/24/24 01:47 CDT Temperature 36.3 C L 04/24/24 01:47 CDT Pulse Rate 60 11/03/24 03:18 Respiratory Rate 18 04/24/24 03:18 Blood Pressure 171/81 H 04/24/24 03:18 Pulse Oximetry 95 04/24/24 03:18 Oxygen Delivery Room Air 04/24/24 01:47 CDT Medical Decision Making MDM Narrative Medical decision making narrative: Differential diagnosis includes fracture, head injury, elbow fracture, contusion, hip fracture, lumbar spine fracture Helical imaging was obtained of the head C-spine lumbar spine and pelvis the showed no evidence of fracture or intracranial pathology Plain film x-rays of the hips were obtained showed no evidence fracture Plain film x-ray of the right elbow showed no evidence fracture Vital Signs Vital Signs: Vital Signs Temperature 36.3 C L 04/24/24 01:47 CDT Pulse Rate 64 04/24/24 01:47 CDT Respiratory Rate 15 04/24/24 01:47 CDT Blood Pressure 165/86 H 04/24/24 01:47 CDT Pulse Oximetry 98 04/24/24 01:47 CDT Oxygen Delivery Room Air 04/24/24 01:47 CDT Temperature 36.3 C L 04/24/24 01:47 CDT Pulse Rate 60 04/24/24 03:18 Respiratory Rate 18 04/24/24 03:18 Blood Pressure 171/81 H 04/24/24 03:18 Pulse Oximetry 95 04/24/24 03:18 Oxygen Delivery Room Air 04/24/24 01:47 CDT Discharge Plan Discharge Clinical Impression: Fall from ground level, Contusion of elbow, right, Low back pain, Head injury Patient Disposition: NH [facility]/Asst Living Condition: Stable Instructions: Antibiotic Form, Head Injury (ED), Acute Low Back Pain (ED), Contusion in Adults (ED) Prescriptions: No Action docusate sodium [Colace] 100 mg capsule 100 mg PO DAILY Centrum Silver 0.4-300-250 mg-mcg-mcg tablet 1 tablet PO DAILY polyethylene glycol 3350 [Miralax] 17 gram powder in packet 17 g PO QAM PRN (Reason: Constipation) aspirin [Adult Aspirin Regimen] 81 mg tablet,delayed release (DR/EC) 81 mg PO DAILY lisinopril 40 mg tablet 40 mg PO DAILY Qty: 90 1RF hydralazine 25 mg tablet 25 mg PO BID Qty: 180 1RF potassium chloride [Klor-Con M20] 20 mEq tablet,ER particles/crystals 20 meq PO DAILY Rx Instructions: TAKE 1 TABLET BY MOUTH EVERY DAY amlodipine 10 mg tablet 10 mg PO DAILY Qty: 90 2RF acetaminophen [Tylenol Extra Strength] 500 mg tablet 500 mg PO Q6H PRN (Reason: fever or pain) Qty: 90 1RF meloxicam 15 mg tablet 15 mg PO DAILY Qty: 90 0RF atorvastatin 20 mg tablet 20 mg PO QHS Qty: 90 1RF sertraline 50 mg tablet 50 mg PO DAILY Qty: 90 1RF mirabegron 50 mg tablet extended release 24 hr 50 mg PO HS Qty: 90 1RF famotidine 20 mg tablet 20 mg PO BID Qty: 180 1RF metoprolol succinate 50 mg tablet extended release 24 hr 50 mg PO DAILY Qty: 90 1RF Follow-up/Referrals: Michael Lara MD [Primary Care Provider] - Time of Disposition: 03:25
[2024-04-24 03:18] VITALS: BP 171/81; PULSE 60; RESP 18; O2SAT 95
== END 2024-04-24 03:55 ==
PROVIDERS: Emergency Provider Emergency Medicine; PCP Family Medicine
DX: S39.92XA Unspecified injury of lower back, initial encounter (principal); S50.01XA Contusion of right elbow, initial encounter; S09.90XA Unspecified injury of head, initial encounter; I87.2 Venous insufficiency (chronic) (peripheral); I11.9 Hypertensive heart disease without heart failure; E78.5 Hyperlipidemia, unspecified; N32.81 Overactive bladder; K21.9 Gastro-esophageal reflux disease without esophagitis; M81.0 Age-related osteoporosis without current pathological fracture; M51.369 Other intervertebral disc degeneration, lumbar region without mention of lumbar back pain or lower extremity pain; Z66 Do not resuscitate; Z86.73 Personal history of transient ischemic attack (TIA), and cerebral infarction without residual deficits; Z90.710 Acquired absence of both cervix and uterus; F32.A Depression, unspecified; F41.9 Anxiety disorder, unspecified; Z79.82 Long term (current) use of aspirin; Z79.899 Other long term (current) drug therapy; M47.816 Spondylosis without myelopathy or radiculopathy, lumbar region; M16.0 Bilateral primary osteoarthritis of hip; M46.1 Sacroiliitis, not elsewhere classified; M47.812 Spondylosis without myelopathy or radiculopathy, cervical region; W06.XXXA Fall from bed, initial encounter
CPT/HCPCS: 70450; 72125; 72131; 72192; 73080; 73521; 99284

== ENCOUNTER 2024-06-20 14:46 | Outpatient (CLI) | payer MEDICARE, SELFPAY ==
--- NOTE | ~2024-06-20 | XR_ITS ---
3 VIEWS LUMBAR SPINE Ordering provider: Michael Lara MD History: . M51.36 - Other intervertebral disc degeneration, lumbar r... . Comparison: None. FINDINGS: VERTEBRAL BODIES: No visible fracture or subluxation. DISK SPACES: Degenerative disc disease at the level of L2-3, L3-L4, L4-L5 and L5-S1. Multilevel facet joint disease. SOFT TISSUES: Normal. IMPRESSION: No acute osseous abnormality lumbar spine. Multilevel degenerative disc disease. Reviewed, dictated and finalized at location A. TICAL SCIENCE PROFESSOR
== END 2024-06-20 14:47 | disposition home or self-care (01) ==
LOC: GOSHIMG 14:47
PROVIDERS: PCP Family Medicine; Visit Provider Family Medicine
DX: M51.360 Other intervertebral disc degeneration, lumbar region with discogenic back pain only (principal); M51.379 Other intervertebral disc degeneration, lumbosacral region without mention of lumbar back pain or lower extremity pain
CPT/HCPCS: 72110

== ENCOUNTER 2024-06-20 16:06 | Outpatient (NON) | payer MEDICARE, SELFPAY ==
[2024-06-20 20:27] LABS: Add Urine Microscopic? NO; Appearance Urine Clear (Clear); Bilirubin Urine Negative (Negative); Blood Urine Negative (Negative); Color Urine Yellow (Yellow); Glucose Urine UA Negative (Negative); Ketones Urine Negative (Negative); Leukocyte Esterase Ur Negative LEU/UL (Negative); Nitrate Urine Negative (Negative); Protein Urine Negative (Negative); Specific Grav Ur 1.014 (1.001-1.035); Urobilinogen Urine 0.2 mg/dL (<2.0)
== END 2024-06-20 16:07 | disposition home or self-care (01) ==
LOC: ANHGOSHLAB 16:07
PROVIDERS: PCP Family Medicine; Visit Provider Family Medicine
DX: R30.0 Dysuria (principal); R53.1 Weakness
CPT/HCPCS: 81003

== ENCOUNTER 2024-07-03 13:22 | Emergency (ER) | payer MEDICARE, SELFPAY ==
[2024-07-03 13:40] VITALS: BP 124/58; PULSE 58; RESP 16; TEMP 36.6; O2SAT 96
--- NOTE | 2024-07-03 13:55 | ED.FEMALEGU ---
HPI - Female Genitourinary General Chief complaint: Urogenital-Female Stated complaint: UTI SYMPTOMS Time Seen by Provider: 07/03/24 13:55 Source: patient Mode of arrival: ambulatory Limitations: no limitations History of Present Illness HPI Narrative: 81-year-old female presents with daughter complaining of low back pain for the past week. Over the past few days patient's daughter has noticed increased fatigue, generalized weakness. Has been changing out of depends more often due to urinary frequency, incontinence. Last night while visiting patient daughter said patient stated ?there is a hole in my trash can ?. Thought patient may have been hallucinating. Other than that patient has not seemed confused. Patient is ambulatory with walker at [facility]. Afebrile. Alert and talkative. Daughter reports history of urinary tract infection with similar symptoms. All systems reviewed and negative except as noted above. Related Data Home Medications ?Medication ?Instructions ?Recorded ?Confirmed ?Last Taken ?Type aspirin 81 mg tablet,delayed 81 mg PO DAILY 05/10/20 07/03/24 03/06/24 History release (Adult Aspirin Regimen) docusate sodium 100 mg capsule 100 mg PO DAILY 01/21/21 07/03/24 03/06/24 History (Colace) [id number] acid 0.4 1 tablet PO DAILY 01/21/21 07/03/24 03/06/24 History mg-lycopene 300 mcg-lutein 250 mcg tablet (Centrum Silver) polyethylene glycol 3350 17 gram 17 g PO QAM PRN Constipation 05/25/23 07/03/24 Unknown History oral powder packet (Miralax) triamcinolone acetonide 0.1 % 1 applic topical BID 06/20/24 07/03/24 Unknown History lotion Allergies Allergy/AdvReac Type Severity Reaction Status Date / Time donepezil AdvReac Intermediate Swelling Verified 07/03/24 13:33 Review of Systems Review of Systems: CONSTITUTIONAL: Denies fever, chills, or sweats. Reports fatigue. EYES: Denies visual changes, redness, or discharge. ENT: Denies rhinorrhea, congestion, sore throat, or otalgia. CARDIOVASCULAR: Denies chest pain, palpitations, or edema. RESPIRATORY: Denies cough or dyspnea. GASTROINTESTINAL: Denies abdominal pain, nausea, vomiting, or diarrhea. GENITOURINARY: Denies dysuria or hematuria. Reports urinary frequency, incontinence. SKIN: Denies rash or itching. MUSCULOSKELETAL: Denies back pain, joint pain, or myalgia. NEUROLOGIC: Denies headache, numbness. Reports generalized weakness. PSYCHIATRIC: Denies anxiety or depression. All other systems reviewed are negative, except as documented in HPI. [facility], [facility] Past Medical History Medical History MCI (mild cognitive impairment) Eczema Diastolic dysfunction Transient ischemic attack Chronic venous insufficiency of lower extremity Closed fracture of left proximal tibia (03/2023) Gait abnormality Debility Falls frequently Multinodular goiter Thoracic spine pain Subcapital fracture of right hip (12/2019) Cognitive impairment Pericardial mass Degenerative disc disease, lumbar Mass of right lung Constipation Environmental allergies Osteoporosis Chronic lower back pain Dyslipidemia Essential (primary) hypertension GERD without esophagitis Depression Anxiety Overactive bladder Surgical History Surgical History History of open reduction and internal fixation (ORIF) procedure (12/2019) Repair of hip fracture. History of hysterectomy (1980) Family History Family History Mother Breast cancer Unknown Hypertension Depression Cerebrovascular accident Arthritis Social History Social History Social History: Healthcare power of mergers and acquisitions attorney: Stephanie Chance, daughter. Code status: Do not resuscitate. Smoking status: Never smoker Second hand tobacco smoke exposure: No Alcohol intake: never Substance use: never Substance use type: does not use Do You Feel Safe in your Home?: Yes Lack of Transportation: No Lack of Food: Never True Current Housing: I Have Housing Concerned About Future Housing: No Difficulty Paying Gas/Electric Bills: No Difficulty Paying for Meds: No Currently Unemployed: No Education: High School Diploma/GED Difficulty w/ Childcare or Family Care: No Living arrangements: alone Additional living arrangements comments: Assisted living at [facility] in [place]. Occupation/Education: retired Spiritual care concerns: No Agree to blood products: Yes Comments At time of signature, agree with nursing past medical, surgical, social and family history. There is no relevant family history pertinent to the presenting complaint. Exam Narrative: GENERAL: This is a well-nourished, well-developed patient, in no apparent distress. HEAD: normocephalic, atraumatic. EYES: PERRL. Sclera clear/white. Vision is grossly intact. Extraocular motions intact EARS: External ears normal, auditory canals clear and without drainage, TMs normal without perforation. Hearing grossly intact. NOSE: External nose normal NECK: Neck supple, non-tender without lymphadenopathy, masses or thyromegaly. CARDIOVASCULAR: Regular rate and rhythm without murmurs, gallops, or rubs. RESPIRATORY: Clear to auscultation. Breath sounds equal bilaterally. No wheezes, rales, or rhonchi. SKIN: warm, Dry, intact with no suspicious lesions or rash, good texture and turgor. NEURO: awake, alert, and oriented to person, place and time. There were no obvious focal neurologic abnormalities. EXTREMITIES: No joint tenderness, effusion, or edema noted. No calf tenderness. Negative Homans sign bilaterally. BACK: Nontender without deformity. No CVA tenderness. Course Course Level of Care: Express Care Visit Vital Signs Vital signs: Vital Signs Temperature 36.6 C 07/03/24 13:40 Pulse Rate 58 L 07/03/24 13:40 Respiratory Rate 16 07/03/24 13:40 Blood Pressure 124/58 L 07/03/24 13:40 Pulse Oximetry 96 07/03/24 13:40 Oxygen Delivery Room Air 07/03/24 13:40 Temperature 36.6 C 07/03/24 13:40 Pulse Rate 58 L 07/03/24 13:40 Respiratory Rate 16 07/03/24 13:40 Blood Pressure 124/58 L 07/03/24 13:40 Pulse Oximetry 96 07/03/24 13:40 Oxygen Delivery Room Air 07/03/24 13:40 Reviewed MDM - Female Genitourinary MDM Narrative Medical decision making narrative: Patient's visit to [facility] was almost 3 hours due to unable to give urine sample. Patient drink multiple cups of water and was provided hot tea. Walked up and down hallway. Was finally able to give sample. Urinalysis showed 1+ leukocytes. Will treat patient with antibiotic. Urine culture ordered. Patient is well-appearing, nontoxic. Her daughter is driving her back to assisted living facility. Will start antibiotic tonight. Patient is aware of diagnosis, understands and agrees to treatment plan. Anticipatory guidance given. Patient agrees to follow-up as directed and is aware of reasons to seek care at the emergency department. Portions of this record may have been created with voice recognition software Differential Diagnosis Differential diagnosis: Likely urinary tract infection Discharge Plan Discharge Clinical Impression: Urinary tract infection Patient Disposition: Home, Self-Care Condition: Stable Instructions: Antibiotic Form, Urinary Tract Infection in Women (ED) Additional Instructions: Take antibiotic as prescribed until gone. Take Tylenol every 6-8 hours as needed for pain. Drink at least 64 oz of water a day. Follow-up with your primary care physician if symptoms are not improving. If you have severe pain, vomiting, fever go to the ER. Patient Language: Citizen Of [place] Prescriptions: New ciprofloxacin HCl 500 mg tablet 500 mg PO BID 7 Days Qty: 14 0RF No Action docusate sodium [Colace] 100 mg capsule 100 mg PO DAILY Centrum Silver 0.4-300-250 mg-mcg-mcg tablet 1 tablet PO DAILY polyethylene glycol 3350 [Miralax] 17 gram powder in packet 17 g PO QAM PRN (Reason: Constipation) aspirin [Adult Aspirin Regimen] 81 mg tablet,delayed release (DR/EC) 81 mg PO DAILY triamcinolone acetonide 0.1 % lotion 1 applic topical BID hydralazine 50 mg tablet 50 mg PO BID Qty: 180 0RF amlodipine 10 mg tablet 10 mg PO DAILY Qty: 90 2RF acetaminophen [Tylenol Extra Strength] 500 mg tablet 500 mg PO Q6H PRN (Reason: fever or pain) Qty: 90 1RF sertraline 50 mg tablet 50 mg PO DAILY Qty: 90 1RF mirabegron 50 mg tablet extended release 24 hr 50 mg PO HS Qty: 90 1RF famotidine 20 mg tablet 20 mg PO BID Qty: 180 1RF metoprolol succinate 50 mg tablet extended release 24 hr 50 mg PO DAILY Qty: 90 1RF meloxicam 15 mg tablet 15 mg PO DAILY Qty: 90 1RF atorvastatin 20 mg tablet 20 mg PO QHS Qty: 90 1RF potassium chloride [Klor-Con M20] 20 mEq tablet,ER particles/crystals 20 meq PO DAILY Qty: 90 1RF Rx Instructions: TAKE 1 TABLET BY MOUTH EVERY DAY lisinopril 40 mg tablet 40 mg PO DAILY Qty: 90 1RF cholecalciferol (vitamin D3) 50 mcg (2,000 unit) tablet 50 mcg PO DAILY Qty: 90 2RF Follow-up/Referrals: Michael Lara MD [Primary Care Provider] - Time of Disposition: 16:30
--- NOTE | 2024-07-03 14:54 | PC.NURSE ---
0234 Patient has been up to bathroom to attempt to collect urine specimen; has been drinking water without urine specimen. Hot tea provided to patient, daughter at bedside.
--- NOTE | 2024-07-03 15:42 | PC.NURSE ---
1543 Up to bathroom again to attempt urine specimen collection.
--- NOTE | 2024-07-03 16:11 | PC.NURSE ---
1610 walking with walker in the [place]; gait slow and steady; daughter in attendance.
--- NOTE | 2024-07-03 16:29 | PC.NURSE ---
1628 urine specimen collected.
[2024-07-03 16:46] LABS: EDUAAPPEAR Clear; EDUABILI Negative (Negative); EDUABLOOD Negative (Negative); EDUACOLOR1 Amber; EDUAGLUCOSE Negative (Negative); EDUAKETONE 1+ (Negative); EDUALEUKO 1+ (Negative); EDUANITRATE Negative (Negative); EDUAPROTEIN 1+ (Negative); EDUASPGRAVITY 1.015; EDUAUROBILI 0.2
== END 2024-07-03 16:35 | disposition home or self-care (01) ==
PROVIDERS: Emergency Provider Nurse Practitioner Family; PCP Family Medicine
DX: N39.0 Urinary tract infection, site not specified (principal); I10 Essential (primary) hypertension; E78.5 Hyperlipidemia, unspecified; K21.9 Gastro-esophageal reflux disease without esophagitis; M81.0 Age-related osteoporosis without current pathological fracture; M51.369 Other intervertebral disc degeneration, lumbar region without mention of lumbar back pain or lower extremity pain; Z86.73 Personal history of transient ischemic attack (TIA), and cerebral infarction without residual deficits; Z79.82 Long term (current) use of aspirin
CPT/HCPCS: 81003; 87086; 99213; G0463

== ENCOUNTER 2024-09-26 15:41 | Outpatient (NON) | payer MEDICARE, SELFPAY ==
--- OUTSIDE RECORDS SUMMARY | 2024-09-26 17:40 | XMS_ITS | Encounter Summary ---
Author Organization [facility] Address [address] [place] [address] Care Team Providers Care Salesperson [employer] Name Role Phone Desean Miller MD Unavailable [phone] Douglas Lara MD Primary Care Provider Encounter Details Date Type Department Care Team (Late st Contact Info) Description 07/10/2021 Lab Requisition [facility] Derm[facility] Lab [address] [place] [id number] Desean Miller MD [address] [place] [address] Social History Tobacco Use Types Packs/Day Years Used Date Smoking Tobacco: Never Alcohol Use Standard Drinks/Week Comments No 0 (1 standard drink = 0.6 oz pur e alcohol) Sex and Gender Information Value Date Recorded Sex Assigned at Not on file Gender Identity Not on file Sexual Orientation Not on file documented as of this encounter Plan of Treatment Not on file documented as of this encounter Procedures Procedure Name Priority Date/Time Associated Diagnosis Comments DERMATOPATHOLOGY Routine 07/09/2021 12:0 0 AM BOILER MECHANIC documented in this encounter Results * DERMATOPATHOLOGY (07/09/2021 12:00 AM BOILER MECHANIC) Case Report Dermatopathology Report Case: [id number] Authorizing Provider: Desean Miller MD Collected: 07/09/2021 12:00 AM Ordering Location: [facility] Lab Received: 07/10/2021 12:45 PM Pathologist: Zaria Patricio MD Specimens: A) - Skin, left side of scalp B) - Skin, right side base of neck 2 8:35 PM [facility] DERMATOP[facility]OLOGY [facility]ORAT[facility] Final Diagnosis Specimen A. 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 The specimen consists of a punch biopsy measuring 6x6x8 mm,bisected. Jar 0. Specimen B: Received is one formalin filled container labeled with the patient's name and designated right side base of neck. The specimen consists of a shave biopsy measuring 6x6x3 mm. Jar 0. 2 8:35 PM [facility] DERMATOPATHOLOGY [facility]ORATORY Microscopic Description Specimen A. SKIN, left side of scalp: Metaplastic bone is seen within the dermis. Specimen B. SKIN, right side base of neck: There are nests of melanocytes at the dermal-epidermal junction and within the dermis. 2 8:35 PM [facility] DERMATOPATHOLOGY [facility]ORATORY Disclaimer An external and internal positive and negative controls are appropriate for the histochemical, immunohistochemical and immunofluorescence stain(s) in this case (if any), except where stated explicitly. The performance characteristics of the stain(s) cited in this report were developed and its performance characteristic determined by the Dermatopathology Laboratory at [facility], directed by Dr. Barbara Patricio. These tests need not be, and therefore are not, approved by the [place] Food and Drug Administration. The tests are used for clinical purposes. Billing Codes Specimen Charges Stain Charges 69434 25423 1 1 2 8:35 PM [facility] DERMATOPATHOLOGY [facility]OR[facility] Embedded Images 2 8:35 PM [facility] DERMATOPATHOLOGY [facility]OR[facility]ORY Pathology/Cytology TISSUE SPECIMEN FROM SKIN / Unknown 07/09/2021 07/10/2021 12:45 PM BOILER MECHANIC Miscellaneous samples (specimen) TISSUE SPECIMEN FROM SKIN / Unknown 07/09/2021 07/10/2021 12:45 PM BOILER MECHANIC Desean Miller MD LAB - PATHOLOGY/CYTO LOGY ORDERABLES DERMATOPATHOLOGY LABORATORY [facility] Department of Dermatology [facility] Medicine [address] [place] [address], [address] [phone] documented in this encounter Visit Diagnoses Not on filedocumented in this encounter Care Teams Salesperson [employer] Relationship Specialty Start Date End Date Douglas Lara MD [address] [place] [id number] PCP - General Family Medicine 04/27/24 Desean Miller MD [address] [place] [id number] Dermatology 04/27/24 documented as of this encounter
--- OUTSIDE RECORDS SUMMARY | 2024-09-26 17:40 | XMS_ITS | Clinical Summary ---
Author Organization [facility] Address [address] [place] [address] Care Team Providers Care Horser Up Name Role Phone Desean Miller MD Unavailable [phone] Douglas Lara MD Primary Care Provider Source Comments [facility],non-owned Affiliates and Associated Physician Practices is amultiple site organization consisting of ambulatory clinics and hospital sitesin [place], [place], [place] and [place]. This disclosure is being madepursuant to the Care Everywhere program and may not contain all information available regarding this patient. Last updated 18.[facility] Allergies No known active allergies Medications * Be aware that medications may not be up to date on this document. Alwaysverify current medications with the patient. Medication Sig Dispensed Refills Start Date End Date Status amLODIPine (Norvasc) 10 MG tablet Take 1 (one) tablet by mouth once daily 03/29/2024 Active atorvastatin (Lipitor) 20 MG tablet Take 1 (one) tablet by mouth 2024 Active chlorhexidine (Peridex) 0.12 % solution SWISH AND SPIT 15 ML DAILY FOR 7 DAYS 12/07/2023 Active hydrALAZINE (Apresoline) 10 MG tablet Take 1 (one) tablet by mouth 2 times daily 03/14/2024 Active hydroCHLOROthiazide (Hydrodiuril) 25 MG tablet Take 1 (one) tablet by mouth every morning 04/20/2023 Active lisinopril (Prinivil; Zestril) 40 MG tablet Take 1 (one) tablet by mouth once daily 03/23/2024 Active meloxicam (Mobic) 15 MG tablet Take 1 (one) tablet by mouth once daily 01/28/2024 Active metoprolol succinate XL 24hr (Toprol XL) 50 MG tablet Take 1 (one) tablet by mouth once daily 03/14/2024 Active Myrbetriq 50 MG tablet Take 1 (one) tablet by mouth at bedtime 02/18/2024 Active nitrofurantoin monohyd macro crystals (Macrobid) 100 MG capsule 100 MG ORALLY EVERY 12 HOURS FOR 7 DAYS MUST ADMINISTER WITH A MEAL/FOOD 10/23/2023 Active sertraline (Zoloft) 50 MG tablet Take 1 (one) tablet by mouth once daily 02/15/2024 Active traMADol (Ultram) 50 MG tablet Take 1 (one) tablet by mouth every 4 hours as needed pain 04/20/2023 Active triamcinolone acetonide (Kenalog) 0.1 % lotion 05/09/2024 Active Active Problems Problem Noted Date Diagnosed Date Concussion without loss of consciousness 016 Essential (primary) hypertension 12/15/2015 Fall 12/14/2015 Immunizations Name Administration Dates Next Due PNEUMOCOCCAL PPSV23 12/18/2015 Family History Medical History Relation Name Comments Heart Failure Father High Cholesterol Father Hypertension Father Cancer Mother breast and lung Cancer Sister breast Relation Name Status Comments Father Mother Sister Social History Tobacco Use Types Packs/Day Years Used Date Smoking Tobacco: Never Alcohol Use Standard Drinks/Week Comments No 0 (1 standard drink = 0.6 oz pur e alcohol) Sex and Gender Information Value Date Recorded Sex Assigned at Not on file Gender Identity Not on file Sexual Orientation Not on file Last Filed Vital Signs Vital Sign Reading Time Taken Comments Blood Pressure 150/96 12/18/2015 11:39 AM CDT Pulse 56 12/18/2015 5:00 AM CDT Temperature 36.3 C (97.4 F) 12/18/2015 11:39 AM CDT Respiratory Rate 16 12/18/2015 11:39 AM CDT Oxygen Saturation 98% 12/18/2015 11:39 AM CDT Inhaled Oxygen Concentration - - Weight 69.6 kg (153 lb 6.4 oz) 12/17/2015 5:34 A M CDT Height 165.1 cm (5' 5 ) 12/14/2015 8:49 PM CDT Body Mass Index 25.53 12/14/2015 8:49 PM CDT Plan of Treatment Health Maintenance Due Date Last Done Comments BONE DENSITY TESTING 1935 MEDICARE AWV 12 MONTHS 1935 DTAP/TDAP/TD VACCINES (1 - Tdap) 02/04/1955 ZOSTER VACCINE (1 of 2) 02/04/1986 Respiratory Syncytial Virus (RSV) Vaccine Pt: or over 60 yrs (1 - 1-dose 75+ series) 02/04/2011 PNEUMOCOCCAL VACCINE 50+ (2 of 2 - PCV) 12/17/2016 12/18/2015 COVID-19 VACCINE (1 - 2023-2 5 season) 2024 DEPRESSION SCREENING 06/22/2024 INFLUENZA VACCINE (Season Ended) 2025 02/21/20 18 HEPATITIS B VACCINE Aged Out No longe r eligible based on patient's age to complete this topic HIB VACCINE Aged Out No longer eligi ble based on patient's age to complete this topic HPV VACCINE Aged Out No longer eligi ble based on patient's age to complete this topic MENINGOCOCCAL (Group B) VACC INE SHARED DECISION-MAKING Aged Out No longer eligibl e based on patient's age to complete this topic MENINGOCOCCAL GROUPS A/C/Y/W VACCINE Aged Out No longer eligible b ased on patient's age to complete this topic Care Teams Horser Up Relationship Specialty Start Date End Date Douglas Lara MD [address] [place] [phone] PCP - General Family Medicine 04/27/24 Desean Miller MD [address] [place] [address] Dermatology 04/27/24
--- OUTSIDE RECORDS SUMMARY | 2024-09-26 17:40 | XMS_ITS | Encounter Summary ---
Author Organization [facility] Address [address] [place] [address] Care Team Providers Care Appliance Adjuster Name Role Phone Desean Miller MD Unavailable [phone] Douglas Lara MD Primary Care Provider Encounter Details Date Type Department Care Team (Late st Contact Info) Description 04/11/2024 Lab Requisition [facility] - DermPath Lab [address] [facility] [place] [phone] Desean Miller MD [address] [place] [address] Social History Tobacco Use Types [...] Priority Date/Time Associated Diagnosis Comments DERMATOPATHOLOGY Routine 04/08/2024 12:0 0 AM CDT documented in this encounter Results * DERMATOPATHOLOGY (04/08/2024 12:00 AM CDT) Case Report Dermatopathology Report Case: [id number] Authorizing Provider: Desean Miller MD Collected: 04/08/2024 12:00 AM Ordering Location: [facility] - Received: 04/11/2024 01:55 PM DermPath Lab Pathologist: Jhoana Hicks MD Specimen: Skin, left middle finger middle phalange 12:54 PM CDT DERMATOPATHOLOGY LABORATORY Final Diagnosis Specimen A. 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 The specimen consists of a shave biopsy measuring 11x9x1 mm. Jar 0. 12:54 PM T DERMATOPATHOLOGY LABORATORY Microscopic Description Specimen A. SKIN, left middle finger middle phalange: The epidermis shows parakeratosis, full thickness disorderly maturation of keratinocytes, mitoses at different levels, and dyskeratotic cells. The lesion extends to the base of the biopsy. COMMENT: An invasive squamous cell carcinoma cannot be ruled out. 12:54 PM T DERMATOPATHOLOGY LABORATORY Disclaimer An external and internal positive and negative controls are appropriate for the histochemical, immunohistochemical and immunofluorescence stain(s) in this case (if any), except where stated explicitly. The performance characteristics of the stain(s) cited in this report were developed and its performance characteristic determined by the Dermatopathology Laboratory at [facility], directed by Dr. Barbara Patricio. These tests need not be, and therefore are not, approved by the [place] Food and Drug Administration. The tests are used for clinical purposes. Billing Codes Specimen Charges Stain Charges 86935 1 12:54 PM CDT DERMATOPATHOLOGY LABORATORY Embedded Images 12:54 PM CDT DERMATOPATHOLOGY LABORATORY Pathology/Cytolog y TISSUE SPECIMEN FROM SKIN / Unknown 04/08/2024 04/11/2024 1:55 PM CDT Desean Miller MD LAB - PATHOLOGY/CYTO LOGY ORDERABLES DERMATOPATHOLOGY LABORATORY [facility] - Department of Dermatology [facility] Medicine [facility], 3rd Floor [address] [phone] documented in this encounter Visit Diagnoses Not on filedocumented in this encounter Care Teams Appliance Adjuster Relationship Specialty Start Date End Date Douglas Lara MD [address] [place] [phone] PCP - General Family Medicine 04/27/24 Desean Miller MD [address] [place] [address] Dermatology 04/27/24 documented as of this encounter
--- OUTSIDE RECORDS SUMMARY | 2024-09-26 17:40 | XMS_ITS | Encounter Summary ---
Author Organization [facility] Address [address] [place] [address] Care Team Providers Care Bag Sealer Name Role Phone Desean Miller MD Unavailable [phone] Douglas Lara MD Primary Care Provider Encounter Details Date Type Department Care Team (Late st Contact Info) Description 01/18/2019 Lab Requisition [facility] DermPath Lab [address] [facility] [place] [phone] Desean Miller MD [address] [place] [address] Social History Tobacco Use Types [...] Priority Date/Time Associated Diagnosis Comments DERMATOPATHOLOGY Routine 01/17/2019 12:0 0 AM CDT documented in this encounter Results * DERMATOPATHOLOGY (01/17/2019 12:00 AM CDT) Case Report Dermatopathology Report Case: [id number] Authorizing Provider: Desean Miller MD Collected: 01/17/2019 12:00 AM Pathologist: Zaria Patricio MD Received: 01/18/2019 11:33 AM Specimen: Skin, right forehead 5:50 PM CDT DERMATOPATHOLOGY LABORATORY Final Diagnosis Specimen A. SKIN, right forehead: BENIGN VERRUCOUS KERATOSIS, INFLAMED (L82.1) 5:50 PM CDT DERMATOPATHOLOGY LABORATORY Clinical History R/O HAK, SCC, BCC, Mckenna's. 5:50 PM CDT DERMATOPATHOLOGY LABORATORY Gross Description Specimen A: Received is one formalin filled container labeled with the patient's name and designated right forehead. The specimen consists of a shave biopsy measuring [id number]. Jar 0. 5:50 PM CDT DERMATOPATHOLOGY LABORATORY Microscopic Description Specimen A. SKIN, right forehead: Sections show hyperkeratosis, papillomatosis, hypergranulosis, and acanthosis. Inflammatory cells are present within the dermis. These histological findings can be seen in a verruca vulgaris or a seborrheic keratosis. 5:50 PM CDT DERMATOPATHOLOGY LABORATORY Disclaimer An external and internal positive and negative controls are appropriate for the histochemical, immunohistochemical and immunofluorescence stain(s) in this case (if any), except where stated explicitly. The performance characteristics of the stain(s) cited in this report were developed and its performance characteristic determined by the Dermatopathology Laboratory at [facility], directed by Dr. Barbara Patricio. These tests need not be, and therefore are not, approved by the [place] Food and Drug Administration. The tests are used for clinical purposes. Billing Codes Specimen Charges Stain Charges 95168 1 9 5:50 PM CDT DERMATOPATHOLOGY LABORATORY Embedded Images 5:50 PM CDT DERMATOPATHOLOGY LABORATORY Pathology/Cytolog y TISSUE SPECIMEN FROM SKIN / Unknown 01/17/2019 01/18/2019 11:33 AM CDT Desean Miller MD LAB - PATHOLOGY/CYTO LOGY ORDERABLES DERMATOPATHOLOGY LABORATORY [facility] - Department of Dermatology [address] [place] [address], [address] [phone] documented in this encounter Visit Diagnoses Not on filedocumented in this encounter Care Teams Bag Sealer Relationship Specialty Start Date End Date Douglas Lara MD [address] [place] [phone] PCP - General Family Medicine 04/27/24 Desean Miller MD [address] [place] [address] Dermatology 04/27/24 documented as of this encounter
--- OUTSIDE RECORDS SUMMARY | 2024-09-26 17:40 | XMS_ITS | Encounter Summary ---
Author Organization [facility] Address [address] [place] [address] Care Team Providers Care Journeyman Level Acoustic Analyst Name Role Phone Desean Miller MD Unavailable Douglas Lara MD Primary Care Provider Encounter Details Date Type Department Care Team (Late st Contact Info) Description 12/26/2020 Lab Requisition [facility] Derm[facility] Lab [address] [facility] [place] [phone] Desean Miller MD [address] [place] [address] Social History Tobacco Use Types [...] Priority Date/Time Associated Diagnosis Comments DERMATOPATHOLOGY Routine 12/25/2020 12:0 0 AM CDT documented in this encounter Results * DERMATOPATHOLOGY (12/25/2020 12:00 AM CDT) Case Report Dermatopathology Report Case: [id number] Authorizing Provider: Desean Miller MD Collected: 12/25/2020 12:00 AM Ordering Location: [facility] D[facility] Lab Received: 12/26/2020 01:59 PM Pathologist: Jhoana Hicks MD Specimens: A) - Skin, left scalp behind B) - Skin, right neck behind earlobe 2:39 PM T DERMATOPATHOLOGY LABORATORY Final Diagnosis Specimen A. 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 B: R/O BCC. 2:39 PM CDT DERMATOPATHOLOGY LABORATORY Gross Description Specimen A: Received is one formalin filled container labeled with the patient's name and designated left scalp behind. The specimen consists of a punch biopsy measuring [id number], bisected. Jar 0. Specimen B: Received is one formalin filled container labeled with the patient's name and designated right neck behind earlobe. The specimen consists of a shave biopsy measuring 8r3o7wy. Jar 0. 2:39 PM T DERMATOPATHOLOGY LABORATORY Microscopic Description Specimen A. SKIN, left scalp behind: Within the subcutaneous tissue, there are typical adipocytes with minimal fibrous trabeculae. There is no evidence of cyst, epithelial dysplasia, or malignancy in multiple deeper sections examined. COMMENT: An underlying process cannot be excluded. Clinical correlation is recommended. Specimen B. SKIN, right neck behind earlobe: Within the dermis there are aggregates of basaloid cells with a high nuclear to cytoplasmic ratio and peripheral palisading. 2:39 PM CDT DERMATOPATHOLOGY LABORATORY Disclaimer An external and internal positive and negative controls are appropriate for the histochemical, immunohistochemical and immunofluorescence stain(s) in this case (if any), except where stated explicitly. The performance characteristics of the stain(s) cited in this report were developed and its performance characteristic determined by the Dermatopathology Laboratory at [facility], directed by Dr. Barbara Patricio. These tests need not be, and therefore are not, approved by the [place] Food and Drug Administration. The tests are used for clinical purposes. Billing Codes Specimen Charges Stain Charges 06818 46376 1 1 07/08/202 1 2:39 PM CDT DERMATOPATHOLOGY LABORATORY Embedded Images 1 2:39 PM CDT DERMATOPATHOLOGY LABORATORY Pathology/Cytology TISSUE SPECIMEN FROM SKIN / Unknown 12/25/2020 12/26/2020 1:59 PM CDT Miscellaneous samples (specimen) TISSUE SPECIMEN FROM SKIN / Unknown 12/25/2020 12/26/2020 1:59 PM CDT Desean Miller MD LAB - PATHOLOGY/CYTO LOGY ORDERABLES DERMATOPATHOLOGY LABORATORY [facility] - Department of Dermatology [facility] Medicine [address] [place] [address], [address] [phone] documented in this encounter Visit Diagnoses Not on filedocumented in this encounter Care Teams Journeyman Level Acoustic Analyst Relationship Specialty Start Date End Date Douglas Lara MD [address] [place] [phone] PCP - General Family Medicine 04/27/24 Desean Miller MD [address] [place] [id number] Dermatology 04/27/24 documented as of this encounter
--- OUTSIDE RECORDS SUMMARY | 2024-09-26 17:40 | XMS_ITS | Encounter Summary ---
Author Organization [facility] Address [address] [facility] [place] [address] Care Team Providers Care Railcar Switcher Name Role Phone Desean Miller MD Unavailable [phone] Douglas Lara MD Primary Care Provider Encounter Details Date Type Department Care Team (Late st Contact Info) Description 01/09/2021 Lab Requisition [facility] DermPath Lab [address] [facility] [place] [phone] Desean Miller MD [address] [place] [address] Social History Tobacco Use Types [...] Priority Date/Time Associated Diagnosis Comments DERMATOPATHOLOGY Routine 01/08/2021 12:0 0 AM CDT documented in this encounter Results * DERMATOPATHOLOGY (01/08/2021 12:00 AM CDT) Case Report Dermatopathology Report Case: [id number] Authorizing Provider: Desean Miller MD Collected: 01/08/2021 12:00 AM Ordering Location: [facility] DermPath Lab Received: 01/09/2021 02:26 PM Pathologist: Jhoana Hicks MD Specimen: Skin, right neck behind earlobe 4:54 PM CDT DERMATOPATHOLOGY LABORATORY Addendum 1 Pancytokeratin immunostain highlights epidermis and adnexal epithelium. 4:54 PM CDT DERMATOPATHOLOGY LABORATORY Addendum electronically signed by Jhoana Hicks MD on 01/11/2021 at 4:54 PM Final Diagnosis Specimen A. SKIN, right neck behind earlobe: DERMAL SCAR; PRESENT AT MARGIN RESIDUAL BASAL CELL CARCINOMA NOT IDENTIFIED (L90.5) (see microscopic description) 4:54 PM CDT DERMATOPATHOLOGY LABORATORY Clinical History BCC, nodular type. 4:54 PM CDT DERMATOPATHOLOGY LABORATORY Gross Description Specimen A: Received is one formalin filled container labeled with the patient's name and designated right neck behind earlobe. The specimen consists of a curettage and desiccation biopsy measuring [id number]. Jar 0. 4:54 PM CDT DERMATOPATHOLOGY LABORATORY Microscopic Description Specimen A. SKIN, right neck behind earlobe: There are fibroblasts and collagen bundles oriented parallel to the skin surface. There are elongated blood vessels, some of which are oriented perpendicular to the skin surface. These changes are present at the base of the specimen. No basal cell carcinoma is identified. 4:54 PM CDT DERMATOPATHOLOGY LABORATORY Disclaimer An external and internal positive and negative controls are appropriate for the histochemical, immunohistochemical and immunofluorescence stain(s) in this case (if any), except where stated explicitly. The performance characteristics of the stain(s) cited in this report were developed and its performance characteristic determined by the Dermatopathology Laboratory at [facility], directed by Dr. Barbara Patricio. These tests need not be, and therefore are not, approved by the [place] Food and Drug Administration. The tests are used for clinical purposes. Billing Codes Specimen Charges Stain Charges 18912 1 98398 1 4:54 PM CDT DERMATOPATHOLOGY LABORATORY Embedded Images 4:54 PM CDT DERMATOPATHOLOGY LABORATORY Pathology/Cytolog y TISSUE SPECIMEN FROM SKIN / Unknown 01/08/2021 01/09/2021 2:26 PM CDT Desean Miller MD LAB - PATHOLOGY/CYTO LOGY ORDERABLES DERMATOPATHOLOGY LABORATORY [facility] - Department of Dermatology [facility] [address] [place] [address], [address] [phone] documented in this encounter Visit Diagnoses Not on filedocumented in this encounter Care Teams Railcar Switcher Relationship Specialty Start Date End Date Douglas Lara MD [address] [place] [phone] PCP - General Family Medicine 04/27/24 Desean Miller MD [address] [place] [address] Dermatology 04/27/24 documented as of this encounter
[2024-09-26 20:10] LABS: Add Urine Microscopic? NO; Appearance Urine Clear (Clear); Bilirubin Urine Negative (Negative); Blood Urine Negative (Negative); Color Urine Yellow (Yellow); Glucose Urine UA Negative (Negative); Ketones Urine Negative (Negative); Leukocyte Esterase Ur Negative LEU/UL (Negative); Nitrate Urine Negative (Negative); Protein Urine Negative (Negative); Specific Grav Ur 1.004 (1.001-1.035); Urobilinogen Urine 0.2 mg/dL (<2.0)
== END 2024-09-26 15:42 | disposition home or self-care (01) ==
LOC: ANHGOSHLAB 15:44
PROVIDERS: PCP Family Medicine; Visit Provider Family Medicine
DX: N39.0 Urinary tract infection, site not specified (principal)
CPT/HCPCS: 81003; 87086

== ENCOUNTER 2024-10-16 17:33 | Emergency (ER) | payer MEDICARE, SELFPAY ==
--- NOTE | ~2024-10-16 | XR_ITS ---
XR chest 2V Ordering provider: Tutu De Leon MD History: 89 years Female with . weakness . Comparison: March 11, 2024 FINDINGS: MEDIASTINUM: The cardiac silhouette is slightly enlarged. LUNGS: No pneumothorax. Opacification the left lung base is seen suggestive of atelectasis versus pne umonia with possible effusion. OTHER: No free air under the diaphragm. Degenerative changes of the spine. IMPRESSION: Left basilar atelectasis versus pneumonia with possible effusion. Cardiomegaly. Reviewed, dictated and finalized at location A.
--- NOTE | 2024-10-16 17:35 | ECG_ITS ---
Test Date: 2024-10-16 17:37:37 Measurements Intervals [place] Rate: 61 P: 83 ID: [id number] QRS: -46 QRSD: 166 T: 52 QT: 453 QTc: 460 Interpretive Statements SINUS RHYTHM LEFT AXIS DEVIATION LEFT BUNDLE BRANCH BLOCK BASELINE ARTIFACT- I, II, III, AVR, AVL, AVF, V1-V6 ABNORMAL ECG Compared to ECG 03/07/2024 09:57:34 No significant changes Electronically Signed On 10-17-2024 08:57:47 CDT by Chito Escudero D.O.
[2024-10-16 17:36] VITALS: BP 185/85; PULSE 60; RESP 19; TEMP 36.4; O2SAT 95
[2024-10-16 18:36] LABS: Add Urine Microscopic? NO; Appearance Urine Clear (Clear); Basophils Percent Auto 0.6 % (0.2-1.2); Bilirubin Urine Negative (Negative); Blood Urine Negative (Negative); Color Urine Yellow (Yellow); Eosinophils Absolute Auto 0.1 K/mm3 (0-0.3); Glucose Urine UA Negative (Negative); Hematocrit 42.5 % (37.0-47.0); Hemoglobin 13.7 g/dL (12.0-15.0); Immature Granulocyte Absolute 0.02 K/mm3 (0.00-0.031); Immature Granulocyte Percent A 0.4 % (0-0.5); Ketones Urine Negative (Negative); Leukocyte Esterase Ur Negative LEU/UL (Negative); Lymphocytes Absolute Auto 0.94 K/mm3 (0.9-3.2); Mean Corpuscular HGB Conc 32.2 g/dl (32-36); Mean Corpuscular Hemoglobin 30.6 pg (26-34); Mean Corpuscular Volume 94.9 fl (80-100); Mean Platelet Volume 11.3 fl (7.4-10.4); Monocytes Absolute Auto 0.5 K/mm3 (0.1-0.6); Monocytes Percent Auto 10.4 % (2.6-8.5); Neutrophils Absolute Auto 3.1 K/mm3 (1.3-6.7); Neutrophils Percent Auto 65.6 % (45.5-73.1); Nitrate Urine Negative (Negative); Platelet Count Result 227 k/mm3 (150-375); Protein Urine Negative (Negative); Red Blood Count 4.48 M/mm3 (4.2-5.4); Red Cell Distribution Width 12.5 % (11.5-14.5); Specific Grav Ur 1.009 (1.001-1.035); Urobilinogen Urine 0.2 mg/dL (<2.0); White Blood Count 4.7 K/mm3 (4.5-10.0)
[2024-10-16 18:49] LABS: Alanine Aminotransferase 19 U/L (6-35); Albumin Level 4.4 g/dL (3.5-5.1); Alkaline Phosphatase 96 U/L (38-126); Anion Gap 9 mmol/L (4-12); Aspartate Amino Transferase 28 U/L (14-36); Bilirubin,Total 0.5 mg/dL (0.2-1.3); Blood Urea Nitrogen 15 mg/dL (7-17); Calcium 9.4 mg/dL (8.4-10.2); Carbon Dioxide 27 mmol/L (22-30); Chloride 101 mmol/L (98-107); Estimated CRCL calculation 47 ml/min; Estimated Glomerular Filt Rate > 60; Glucose 122 mg/dL (65-110); Sodium 137 mmol/L (137-145)
--- OUTSIDE RECORDS SUMMARY | 2024-10-16 19:01 | XMS_ITS | Encounter Summary ---
Author Organization [facility] Address [address] [facility] [place] [address] Care Team Providers Care Mail Order Sorter Name Role Phone Desean Miller MD Unavailable [phone] Douglas Lara MD Primary Care Provider Encounter Details Date Type Department Care Team (Late st Contact Info) Description 04/11/2024 Lab Requisition [facility] - DermPath Lab [address] [place] [phone] Desean Miller MD [address] [place] [address] Social History Tobacco Use Types Packs/Day Years Used Date Smoking Tobacco: Never Alcohol Use Standard Drinks/Week Comments No 0 (1 standard drink = 0.6 oz pur e alcohol) Comments Unknown Sex and Gender Information Value Date Recorded Sex Assigned at Not on file Legal Sex Female 5:57 PM BEAN PICKER Gender Identity Not on file Sexual Orientation Not on file documented as of this encounter Plan of Treatment Not on file documented as of this encounter Procedures Procedure Name Priority Date/Time Associated Diagnosis Comments DERMATOPATHOLOGY Routine 04/08/2024 12:0 0 AM CDT documented in this encounter Results * DERMATOPATHOLOGY (04/08/2024 12:00 AM CDT) Case Report Dermatopathology Report Case: [id number] Authorizing Provider: Desean Miller MD Collected: 04/08/2024 12:00 AM Ordering Location: [facility] - Received: 04/11/2024 01:55 PM DermPath Lab Pathologist: Jhoana Hicks MD Specimen: Skin, left middle finger middle phalange 12:54 PM CDT DERMATOPATHOLOGY LABORATORY Final Diagnosis Specimen A. 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 The specimen consists of a shave biopsy measuring 11x9x1 mm. Jar 0. 12:54 PM CDT DERMATOPATHOLOGY LABORATORY Microscopic Description Specimen A. SKIN, left middle finger middle phalange: The epidermis shows parakeratosis, full thickness disorderly maturation of keratinocytes, mitoses at different levels, and dyskeratotic cells. The lesion extends to the base of the biopsy. COMMENT: An invasive squamous cell carcinoma cannot be ruled out. 12:54 PM CDT DERMATOPATHOLOGY LABORATORY Disclaimer An external and internal positive and negative controls are appropriate for the histochemical, immunohistochemical and immunofluorescence stain(s) in this case (if any), except where stated explicitly. The performance characteristics of the stain(s) cited in this report were developed and its performance characteristic determined by the Dermatopathology Laboratory at [facility], directed by Dr. Barbara Patricio. These tests need not be, and therefore are not, approved by the [place] Food and Drug Administration. The tests are used for clinical purposes. Billing Codes Specimen Charges Stain Charges 97796 1 12:54 PM CDT DERMATOPATHOLOGY LABORATORY Embedded Images 12:54 PM CDT DERMATOPATHOLOGY LABORATORY Pathology/Cytolog y TISSUE SPECIMEN FROM SKIN / Unknown 04/08/2024 04/11/2024 1:55 PM CDT Desean Miller MD LAB - PATHOLOGY/CYTOLOGY ORD ERABLES Final Result DERMATOPATHOLOGY LABORATORY [facility] - Department of Dermatology [address], [address] [phone] documented in this encounter Visit Diagnoses Not on filedocumented in this encounter Care Teams Mail Order Sorter Relationship Specialty Start Date End Date Douglas Lara MD [address] [place] [phone] PCP - General Family Medicine 04/27/24 Desean Miller MD [address] [place] [address] Dermatology 04/27/24 documented as of this encounter
--- OUTSIDE RECORDS SUMMARY | 2024-10-16 19:01 | XMS_ITS | Clinical Summary ---
Author Organization [facility] Address [address] [place] [address] Care Team Providers Care Director Of Infection Prevention Name Role Phone Desean Miller MD Unavailable [phone] Douglas Lara MD Primary Care Provider Source Comments [facility] [place],non-owned Affiliates and Associated Physician Practices is amultiple site organization consisting of ambulatory clinics and hospital sitesin [place], [place], [place] and [place]. This disclosure is being madepursuant to the Care Everywhere program and may not contain all information available regarding this patient. Last updated 18.[facility] [place] Allergies No known active allergies Medications * Be aware that medications may not be up to date on this document. Alwaysverify current medications with the patient. amLODIPine (Norvasc) 10 MG tablet Take 1 (one) tablet by mouth once daily 4 Active atorvastatin (Lipitor) 20 MG tablet Take 1 (one) tablet by mouth 4 Active chlorhexidine (Peridex) 0.12 % solution SWISH AND SPIT 15 ML DAILY FOR 7 DAYS 4 Active hydrALAZINE (Apresoline) 10 MG tablet Take 1 (one) tablet by mouth 2 times daily 4 Active hydroCHLOROthia zide (Hydrodiuril) 25 MG tablet Take 1 (one) tablet by mouth every morning 3 Active lisinopril (Prinivil; Zestril) 40 MG tablet Take 1 (one) tablet by mouth once daily 4 Active meloxicam (Mobic) 15 MG tablet Take 1 (one) tablet by mouth once daily 4 Active metoprolol succinate XL 24hr (Toprol XL) 50 MG tablet Take 1 (one) tablet by mouth once daily 4 Active Myrbetriq 50 MG tablet Take 1 (one) tablet by mouth at bedtime 4 Active nitrofurantoin monohyd macro crystals (Macrobid) 100 MG capsule 100 MG ORALLY EVERY 12 HOURS FOR 7 DAYS MUST ADMINISTER WITH A MEAL/FOOD 4 Active sertraline (Zoloft) 50 MG tablet Take 1 (one) tablet by mouth once daily 4 Active traMADol (Ultram) 50 MG tablet Take 1 (one) tablet by mouth every 4 hours as needed pain 3 Active triamcinolone acetonide (Kenalog) 0.1 % lotion 4 Active Active Problems Problem Noted Date Diagnosed Date Concussion without loss of consciousness 016 Essential (primary) hypertension 12/15/2015 Fall 12/14/2015 Immunizations Immunization Administration Dates Next Due PNEUMOCOCCAL PPSV23 12/18/2015 [...] on file 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
--- OUTSIDE RECORDS SUMMARY | 2024-10-16 19:01 | XMS_ITS | Encounter Summary ---
Author Organization [facility] Address [address] [facility] [place] [address] Care Team Providers Care Wardrobe Attendant Name Role Phone Desean Miller MD Unavailable [phone] Douglas Lara MD Primary Care Provider Encounter Details Date Type Department Care Team (Late st Contact Info) Description 12/26/2020 Lab Requisition 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 DermPath Lab Received: 12/26/2020 01:59 PM Pathologist: Jhoana Hicks MD Specimens: A) - Skin, left scalp behind B) - Skin, right neck behind earlobe 2:39 PM [facility] DERMATOPATHOLOGY LABORATORY Final Diagnosis Specimen A. 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 B: R/O BCC. 2:39 PM [facility] DERMATOPATHOLOGY LABORATORY Gross Description Specimen A: Received is one formalin filled container labeled with the patient's name and designated left scalp behind. The specimen consists of a punch biopsy measuring [id number], bisected. Jar 0. Specimen B: Received is one formalin filled container labeled with the patient's name and designated right neck behind earlobe. The specimen consists of a shave biopsy measuring [id number]. Jar 0. 2:39 PM [facility] DERMATOPATHOLOGY LABORATORY Microscopic Description Specimen A. [...] cytoplasmic ratio and peripheral palisading. 2:39 PM T DERMATOPATHOLOGY LABORATORY Disclaimer An external and internal positive and negative controls are appropriate for the histochemical, immunohistochemical and immunofluorescence stain(s) in this case (if any), except where stated explicitly. The performance characteristics of the stain(s) cited in this report were developed and its performance characteristic determined by the Dermatopathology Laboratory at [facility], directed by Dr. Barbara Patricio. These tests need not be, and therefore are not, approved by the [place] Food and Drug Administration. The tests are used for clinical purposes. Billing Codes Specimen Charges Stain Charges 68811 59119 1 1 1 2:39 PM CDT DERMATOPATHOLOGY LABORATORY Embedded Images 1 2:39 PM CDT DERMATOPATHOLOGY LABORATORY Pathology/Cytology TISSUE SPECIMEN FROM SKIN / Unknown 12/25/2020 12/26/2020 1:59 PM CDT Miscellaneous samples (specimen) TISSUE SPECIMEN FROM SKIN / Unknown 12/25/2020 12/26/2020 1:59 PM CDT Desean Miller MD LAB - PATHOLOGY/CYTOLOGY ORD ERABLES Final Result DERMATOPATHOLOGY LABORATORY [facility] - Department of Dermatology [facility] Medicine [address] [place] [address], [address] [phone] documented in this encounter Visit Diagnoses Not on filedocumented in this encounter Care Teams Wardrobe Attendant Relationship Specialty Start Date End Date Douglas Lara MD [address] [place] [phone] PCP - General Family Medicine 04/27/24 Desean Miller MD [address] [place] [address] Dermatology 04/27/24 documented as of this encounter
--- OUTSIDE RECORDS SUMMARY | 2024-10-16 19:01 | XMS_ITS | Encounter Summary ---
Author Organization [facility] Address [address] [place] [address] Care Team Providers Care Analysis Specialist Name Role Phone Desean Miller MD Unavailable [phone] Douglas Lara MD Primary Care Provider Encounter Details Date Type Department Care Team (Late st Contact Info) Description 01/09/2021 Lab Requisition [facility] DermPath Lab [address] [facility] [place] [phone] Desean Miller MD [address] [place] [address] Social History Tobacco Use Types Packs/Day Years Used Date Smoking Tobacco: Never Alcohol Use Standard Drinks/Week Comments No 0 (1 standard drink = 0.6 oz pur e alcohol) Comments Unknown Sex and Gender Information Value Date Recorded Sex Assigned at Not on file 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 Gender Identity Not on file Sexual Orientation Not on file documented as of this encounter Plan of Treatment Not on file documented as of this encounter Procedures Procedure Name Priority Date/Time Associated Diagnosis Comments DERMATOPATHOLOGY Routine 01/08/2021 12:0 0 AM CDT documented in this encounter Results * DERMATOPATHOLOGY (01/08/2021 12:00 AM CDT) Case Report Dermatopathology Report Case: [id number] Authorizing Provider: Desean Miller MD Collected: 01/08/2021 12:00 AM Ordering Location: [facility] DermPath Lab Received: 01/09/2021 02:26 PM Pathologist: [...] of a curettage and desiccation biopsy measuring [id number]. Jar 0. 4:54 PM T DERMATOPATHOLOGY LABORATORY Microscopic Description Specimen [...] characteristic determined by the Dermatopathology Laboratory at [facility], directed by Dr. Barbara Patricio. These tests need not be, and therefore are not, approved by the [place] Food and Drug Administration. The tests are used for clinical purposes. Billing Codes Specimen Charges Stain Charges 78518 1 68151 1 4:54 PM CDT DERMATOPATHOLOGY LABORATORY Embedded Images 4:54 PM CDT DERMATOPATHOLOGY LABORATORY Pathology/Cytolog y TISSUE SPECIMEN FROM SKIN / Unknown 01/08/2021 01/09/2021 2:26 PM CDT Desean Miller MD LAB - PATHOLOGY/CYTOLOGY ORD ERABLES Edited Result - Final DERMATOPATHOLOGY LABORATORY [facility] - Department of Dermatology [facility] Medicine [address] [place] [address], [address] [phone] documented in this encounter Visit Diagnoses Not on filedocumented in this encounter Care Teams Analysis Specialist Relationship Specialty Start Date End Date Douglas Lara MD [address] [place] [phone] PCP - General Family Medicine 04/27/24 Desean Miller MD [address] [place] [address] Dermatology 04/27/24 documented as of this encounter
--- OUTSIDE RECORDS SUMMARY | 2024-10-16 19:01 | XMS_ITS | Encounter Summary ---
Author Organization [facility] Address [address] [place] [address] Care Team Providers Care Sausage Wrapper Name Role Phone Desean Miller MD Unavailable Douglas Lara MD Primary Care Provider Encounter Details Date Type Department Care Team (Late st Contact Info) Description 07/10/2021 Lab Requisition [facility] DermPath Lab [address] [facility] [place] [phone] Desean Miller MD [address] [place] [address] Social History Tobacco Use Types Packs/Day Years Used Date Smoking Tobacco: Never Alcohol Use Standard Drinks/Week Comments No 0 (1 standard drink = 0.6 oz pur e alcohol) Comments Unknown Sex and Gender Information Value Date Recorded Sex Assigned at Not on file 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 Gender Identity Not on file Sexual Orientation Not on file documented as of this encounter Plan of Treatment Not on file documented as of this encounter Procedures Procedure Name Priority Date/Time Associated Diagnosis Comments DERMATOPATHOLOGY Routine 07/09/2021 12:0 0 AM NAIL MAKING MACHINE SETTER documented in this encounter Results * DERMATOPATHOLOGY (07/09/2021 12:00 AM NAIL MAKING MACHINE SETTER) Case Report Dermatopathology Report [id number]: [id number] Authorizing Provider: Desean Miller MD Collected: 07/09/2021 12:00 AM Ordering Location: [facility] DermPath Lab Received: 07/10/2021 12:45 PM Pathologist: Zaria Patricio MD Specimens: A) - Skin, left side of scalp B) - Skin, right side base of neck 2 8:35 PM [facility] DERMATOPATHOLOGY LABORATORY Final Diagnosis Specimen A. 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 Jar 0. 2 8:35 PM [facility] DERMATOPATHOLOGY LABORATORY Microscopic Description Specimen A. SKIN, left side of scalp: Metaplastic bone is seen within the dermis. Specimen B. SKIN, right side base of neck: There are nests of melanocytes at the dermal-epidermal junction and within the dermis. 2 8:35 PM [facility] DERMATOPATHOLOGY LABORATORY Disclaimer An external and [...] purposes. Billing Codes Specimen Charges Stain Charges 52308 90767 1 1 2 8:35 PM [facility] DERMATOPATHOLOGY LABORATORY Embedded Images 2 8:35 PM [facility] DERMATOPATHOLOGY LABORATORY Pathology/Cytology TISSUE SPECIMEN FROM SKIN / Unknown 07/09/2021 07/10/2021 12:45 PM NAIL MAKING MACHINE SETTER Miscellaneous samples (specimen) TISSUE SPECIMEN FROM SKIN / Unknown 07/09/2021 07/10/2021 12:45 PM NAIL MAKING MACHINE SETTER Desean Miller MD LAB - PATHOLOGY/CYTOLOGY ORD ERABLES Final Result DERMATOPATHOLOGY LABORATORY [facility] - Department of Dermatology [facility] Medicine [address] [place] [address], [address] [phone] documented in this encounter Visit Diagnoses Not on filedocumented in this encounter Care Teams Sausage Wrapper Relationship Specialty Start Date End Date Douglas Lara MD [address] [place] [phone] PCP - General Family Medicine 04/27/24 Desean Miller MD [address] [place] [address] Dermatology 04/27/24 documented as of this encounter
--- OUTSIDE RECORDS SUMMARY | 2024-10-16 19:01 | XMS_ITS | Encounter Summary ---
Author Organization [facility] Address [address] [facility] [place] [address] Care Team Providers Care Fence Post Cutter Name Role Phone Desean Miller MD Unavailable [phone] Douglas Lara MD Primary Care Provider Encounter Details Date Type Department Care Team (Late st Contact Info) Description 01/18/2019 Lab Requisition [facility] DermPath Lab [address] [facility] [place] [phone] Desean Miller MD [address] [place] [address] Social History Tobacco Use Types Packs/Day Years Used Date Smoking Tobacco: Never Alcohol Use Standard Drinks/Week Comments No 0 (1 standard drink = 0.6 oz pur e alcohol) Comments Unknown Sex and Gender Information Value Date Recorded Sex Assigned at Not on file 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 Jar 0. 5:50 PM CDT DERMATOPATHOLOGY LABORATORY [...] characteristic determined by the Dermatopathology Laboratory at [facility], directed by Dr. Barbara Patricio. These tests need not be, and therefore are not, approved by the [place] Food and Drug Administration. The tests are used for clinical purposes. Billing Codes Specimen Charges Stain Charges 84852 1 9 5:50 PM CDT DERMATOPATHOLOGY LABORATORY Embedded Images 5:50 PM CDT DERMATOPATHOLOGY LABORATORY Pathology/Cytolog y TISSUE SPECIMEN FROM SKIN / Unknown 01/17/2019 01/18/2019 11:33 AM CDT us Desean Miller MD LAB - PATHOLOGY/CYTOLOGY ORD ERABLES Final Result DERMATOPATHOLOGY LABORATORY [facility] - Department of Dermatology [address] Lab [address] [phone] documented in this encounter Visit Diagnoses Not on filedocumented in this encounter Care Teams Fence Post Cutter Relationship Specialty Start Date End Date Douglas Lara MD [address] [place] [phone] PCP - General Family Medicine 04/27/24 Desean Miller MD [address] [place] [address] Dermatology 04/27/24 documented as of this encounter
--- NOTE | 2024-10-16 19:18 | PC.NURSE ---
Report received from AMINA Dale. Assumed care of patient at this time.
--- NOTE | 2024-10-16 19:22 | ED.WEAKNESS ---
HPI - Weakness General Chief complaint: Weakness Stated complaint: weakness Time Seen by Provider: 10/16/24 17:57 History of Present Illness HPI Narrative: 89-year-old female with a past medical history including mild cognitive impairment, hypertension, frequent UTIs. Patient resides at an assisted living facility and presents to the emergency department with her family member at bedside with concerns for generalized weakness and malaise as well as a cough and rhinorrhea. Patient also has been going up to the bathroom more frequently. She is alert oriented x2 which is around her baseline mentation. She is denying any pain, fevers, chills, abdominal pain, urinary pain or dysuria. No fever chills. No chest pain shortness a breath. She has no complaints while sitting for examination. Family members at bedside are concern for potential urinary infection but otherwise have had no recent issues with patient's health. Related Data Home Medications ?Medication ?Instructions ?Recorded ?Confirmed ?Last Taken ?Type aspirin 81 mg tablet,delayed 81 mg PO DAILY 05/10/20 07/03/24 03/06/24 History release (Adult Aspirin Regimen) docusate sodium 100 mg capsule 100 mg PO DAILY 01/21/21 07/03/24 03/06/24 History (Colace) [id number] acid 0.4 1 tablet PO DAILY 01/21/21 07/03/24 03/06/24 History mg-lycopene 300 mcg-lutein 250 mcg tablet (Centrum Silver) polyethylene glycol 3350 17 gram 17 g PO QAM PRN Constipation 05/25/23 07/03/24 Unknown History oral powder packet (Miralax) triamcinolone acetonide 0.1 % 1 applic topical BID 06/20/24 07/03/24 Unknown History lotion Allergies Allergy/AdvReac Type Severity Reaction Status Date / Time donepezil AdvReac Intermediate Swelling Verified 10/16/24 17:38 Review of Systems Review of Systems: As reviewed above in HPI [facility] Past Medical History Medical History MCI (mild cognitive impairment) Eczema Diastolic dysfunction Transient ischemic attack Chronic venous insufficiency of lower extremity Closed fracture of left proximal tibia (03/2023) Gait abnormality Debility Falls frequently Multinodular goiter Thoracic spine pain Subcapital fracture of right hip (12/2019) Cognitive impairment Pericardial mass Degenerative disc disease, lumbar Mass of right lung Constipation Environmental allergies Osteoporosis Chronic lower back pain Dyslipidemia Essential (primary) hypertension GERD without esophagitis Depression Anxiety Overactive bladder Surgical History Surgical History History of open reduction and internal fixation (ORIF) procedure (12/2019) Repair of hip fracture. 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 Code status: Do not resuscitate. Smoking status: Never smoker Second hand tobacco smoke exposure: No Alcohol intake: never Substance use: never Substance use type: does not use Do You Feel Safe in your Home?: Yes Lack of Transportation: No Lack of Food: Never True Current Housing: I Have Housing Concerned About Future Housing: No Difficulty Paying Gas/Electric Bills: No Difficulty Paying for Meds: No Currently Unemployed: No Education: High School Diploma/GED Difficulty w/ Childcare or Family Care: No Living arrangements: alone Additional living arrangements comments: Assisted living at [facility] in [place]. Occupation/Education: retired Spiritual care concerns: No Agree to blood products: Yes Exam Narrative: GENERAL: [Well-appearing, well-nourished, and in no acute distress.] HEAD: [Normocephalic, atraumatic.] EYES: [PERRLA and EOMI.] ENT: Nares clear, no rhinorrhea or epistaxis. Mucous membranes moist. NECK: Supple. CHEST: [Clear to auscultation. No respiratory distress.] HEART: [Regular rate and rhythm]. No murmur heard. [Normal peripheral pulses.] ABDOMEN: [Soft, nondistended], [nontender], [No rigidity or guarding] EXTREMITIES: Normal range of motion. [No edema.] SKIN: Warm, dry, no rash. NEURO: [No focal deficits]. Alert and oriented x2, at baseline mentation per family PSYCH: [Normal mood and affect.] Course Vital Signs Vital signs: Vital Signs Temperature 36.4 C 10/16/24 17:36 Pulse Rate 60 10/16/24 17:36 Respiratory Rate 19 10/16/24 17:36 Blood Pressure 185/85 H 10/16/24 17:36 Pulse Oximetry 95 10/16/24 17:36 Oxygen Delivery Room Air 10/16/24 17:36 Temperature 36.4 C 10/16/24 17:36 Pulse Rate 60 10/16/24 17:36 Respiratory Rate 19 10/16/24 17:36 Blood Pressure 185/85 H 10/16/24 17:36 Pulse Oximetry 95 10/16/24 17:36 Oxygen Delivery Room Air 10/16/24 17:36 MDM - Weakness MDM Narrative Medical decision making narrative: 89-year-old female with a past medical history including mild cognitive impairment, hypertension, frequent urinary infections. Patient presents to the emergency department, by her family member for concerns of some malaise and weakness as well as some upper respiratory symptoms including a cough and runny nose. Patient has been going to the bathroom more frequently and they were concerned about UTI. Patient self is no complaints. No headache, vision change, nausea, vomiting, chest pain, shortness a breath, abdominal pain, dysuria. She has a soft nontender nondistended abdomen otherwise appears well. Patient has no acute complaints at this time and at her baseline mentation. A broad workup was ordered including a chest x-ray, EKG and basic laboratory studies for further evaluation. Patient was placed on monitor and was re-evaluated. Workup shows no leukocytosis or anemia. Normal platelet count. Patient's electrolytes are all normal. Normal renal function, normal glucose and hepatic function. Urinalysis has no signs of infection and appear clean. Patient's chest x-ray shows some left basilar atelectasis versus pneumonia with small effusion. Some cardiomegaly is seen. Patient otherwise has no complaints of dyspnea but we will treat this as a potential pneumonia given her respiratory tract symptoms including cough and rhinorrhea. She is not any distress and saturating well on room air. She was given a dose of IV Rocephin and doxycycline for community coverage and sent home on a prescription course of doxycycline and azithromycin. Patient's questions were answered, family's questions were answered and they felt comfortable with her going to her memory care facility tonight rather than admitting her. Patient was given strict return precautions and family will contact the PCP for close follow-up. Patient safely discharged home at this time. Medical Records Attestation: I reviewed the patient's medical records. Lab Data Attestation: I reviewed the patient's lab results. 10/16/24 17:57 10/16/24 17:57 Labs: Lab Results 10/16/24 Range/Units 17:57 WBC 4.7 (4.5-10.0) K/mm3 RBC 4.48 (4.2-5.4) M/mm3 Hgb 13.7 (12.0-15.0) g/dL Hct 42.5 (37.0-47.0) % MCV 94.9 (80-100) fl MCH 30.6 (26-34) pg MCHC 32.2 (32-36) g/dl RDW 12.5 (11.5-14.5) % Plt Count 227 (150-375) k/mm3 MPV 11.3 H (7.4-10.4) fl Immature Gran % (Auto) 0.4 (0-0.5) % Neut % (Auto) 65.6 (45.5-73.1) % Lymph % (Auto) 20.0 (18.3-44.2) % Runnels % (Auto) 10.4 H (2.6-8.5) % Eos % (Auto) 3.0 (0-4.4) % Baso % (Auto) 0.6 (0.2-1.2) % Lymph # (Auto) 0.94 (0.9-3.2) K/mm3 Runnels # (Auto) 0.5 (0.1-0.6) K/mm3 Eos # (Auto) 0.1 (0-0.3) K/mm3 Baso # (Auto) 0.0 (0.0-0.1) K/mm3 Abs Immat Gran (auto) 0.02 (0.00-0.031) K/mm3 Absolute Neuts (auto) 3.1 (1.3-6.7) K/mm3 Absolute Nucleated RBC 0.000 (0.0-0.012) K/mm3 Nucleated RBC % 0.0 (0.0-0.2) % Sodium 137 (137-145) mmol/L Potassium 4.0 (3.4-5.0) mmol/L Chloride 101 (98-107) mmol/L Carbon Dioxide 27 (22-30) mmol/L Anion Gap 9 (4-12) mmol/L BUN 15 D (7-17) mg/dL Creatinine 0.63 L (0.7-1.0) mg/dL Estim Creat Clear Calc 47 ml/min Estimated GFR > 60 (59 - ) Glucose 122 H (65-110) mg/dL Calcium 9.4 (8.4-10.2) mg/dL Total Bilirubin 0.5 (0.2-1.3) mg/dL AST 28 (14-36) U/L ALT 19 (6-35) U/L Alkaline Phosphatase 96 (38-126) U/L Total Protein 8.0 (6.3-8.2) g/dL Albumin 4.4 (3.5-5.1) g/dL Urine Color Yellow (Yellow) Urine Appearance Clear (Clear) Urine pH 7.0 (5.0-9.0) Ur Specific [place] 1.009 (1.001-1.035) Urine Protein Negative (Negative) mg/dL Urine Glucose (UA) Negative (Negative) mg/dL Urine Ketones Negative (Negative) mg/dL Ur Blood (Man) Negative (Negative) Urine Nitrate Negative (Negative) Urine Bilirubin Negative (Negative) Urine Urobilinogen 0.2 (<2.0) mg/dL Leukocyte Esterase Rfl Negative (Negative) ANNA/UL Imaging Data Attestation: I personally reviewed and interpreted this imaging study as follows: My impression: Impressions Chest X-Ray 10/16/24 18:50 IMPRESSION: Left basilar atelectasis versus pneumonia with possible effusion. Cardiomegaly. Discharge Plan Discharge Clinical Impression: Community acquired pneumonia Patient Disposition: Home Condition: Stable Instructions: Antibiotic Form, Community Acquired Pneumonia (DC) Additional Instructions: Your chest x-ray shows a small left-sided pneumonia. We will treat this with some oral antibiotics for the next 5 days. Follow-up with your primary care provider and call them in the next several days to establish appointment. If you experience any worsening concerns or any new symptoms please return to the emergency department any time. Patient Language: Danish Prescriptions: New doxycycline hyclate 100 mg capsule 100 mg PO BID 5 Days Qty: 10 0RF azithromycin [Zithromax TRI-JARED] 500 mg tablet 500 mg PO DAILY 5 Days Qty: 5 0RF No Action ciprofloxacin HCl 500 mg tablet 500 mg PO BID 7 Days Qty: 14 0RF docusate sodium [Colace] 100 mg capsule 100 mg PO DAILY Centrum Silver 0.4-300-250 mg-mcg-mcg tablet 1 tablet PO DAILY polyethylene glycol 3350 [Miralax] 17 gram powder in packet 17 g PO QAM PRN (Reason: Constipation) aspirin [Adult Aspirin Regimen] 81 mg tablet,delayed release (DR/EC) 81 mg PO DAILY triamcinolone acetonide 0.1 % lotion 1 applic topical BID acetaminophen [Tylenol Extra Strength] 500 mg tablet 500 mg PO Q6H PRN (Reason: fever or pain) Qty: 90 1RF mirabegron 50 mg tablet extended release 24 hr 50 mg PO HS Qty: 90 1RF famotidine 20 mg tablet 20 mg PO BID Qty: 180 1RF meloxicam 15 mg tablet 15 mg PO DAILY Qty: 90 1RF atorvastatin 20 mg tablet 20 mg PO QHS Qty: 90 1RF potassium chloride [Klor-Con M20] 20 mEq tablet,ER particles/crystals 20 meq PO DAILY Qty: 90 1RF Rx Instructions: TAKE 1 TABLET BY MOUTH EVERY DAY lisinopril 40 mg tablet 40 mg PO DAILY Qty: 90 1RF cholecalciferol (vitamin D3) 50 mcg (2,000 unit) tablet 50 mcg PO DAILY Qty: 90 2RF sertraline 50 mg tablet 50 mg PO DAILY Qty: 90 1RF amlodipine 10 mg tablet 10 mg PO DAILY Qty: 90 1RF metoprolol succinate 50 mg tablet extended release 24 hr 50 mg PO DAILY Qty: 90 1RF hydralazine 50 mg tablet See Rx Instructions .ROUTE .COMPLEX Qty: 180 1RF Dose Instruction: TAKE 1 TABLET BY MOUTH TWICE A DAY Rx Instructions: TAKE 1 TABLET BY MOUTH TWICE A DAY Follow-up/Referrals: Michael Lara MD [Primary Care Provider] - Time of Disposition: 20:36
[2024-10-16] MEDS: DOXYCYCLINE HYCLATE 100 MG TABLET PO (20:11)
[2024-10-16 20:43] VITALS: BP 148/76; PULSE 56; RESP 17; O2SAT 96
== END 2024-10-16 21:14 ==
PROVIDERS: Emergency Medicine; Emergency Provider Student in an Organized Health Care Education/Training Program; PCP Family Medicine
DX: J18.9 Pneumonia, unspecified organism (principal); G31.84 Mild cognitive impairment of uncertain or unknown etiology; I11.9 Hypertensive heart disease without heart failure; I87.2 Venous insufficiency (chronic) (peripheral); E78.5 Hyperlipidemia, unspecified; K21.9 Gastro-esophageal reflux disease without esophagitis; N32.81 Overactive bladder; M81.0 Age-related osteoporosis without current pathological fracture; M51.369 Other intervertebral disc degeneration, lumbar region without mention of lumbar back pain or lower extremity pain; F41.9 Anxiety disorder, unspecified; F32.A Depression, unspecified; Z66 Do not resuscitate; Z86.73 Personal history of transient ischemic attack (TIA), and cerebral infarction without residual deficits; Z90.710 Acquired absence of both cervix and uterus; I51.7 Cardiomegaly; Z79.899 Other long term (current) drug therapy; I44.7 Left bundle-branch block, unspecified
CPT/HCPCS: 36415; 71046; 80053; 81003; 85025; 93005; 96365; 99284; A9270; J0696